=== PATIENT | male | born 1970 | race Caucasian/White ===

== ENCOUNTER → 2016-09-25 | Outpatient (CLI) | payer OTHER ==
[~2016-09-25] MED LIST: ALBU17IN INH; NAPR250T2 PO; PRED20TA PO; TRAM50TA2 PO; TRAZ50TA OR; TYLE325T5 PO; ZITHTAB PO; ZOLO100T OR
--- NOTE | 2016-09-28 23:52 | ECWPNPC ---
PATIENT NAME: TORY SALDIVAR : 1970 GENDER: MALE VISIT DATE: 09/25/2016 DISCHARGE DATE: 09/25/16 1426 VISIT LOCKED DATE TIME: PHYSICIAN: FIFI KEBEDE RESOURCE: FIFI KEBEDE REASON FOR APPOINTMENT 1. NECK HISTORY OF PRESENT ILLNESS NEW PATIENT CONSULT: 45 Y/O MALE REFERRED BY [facility]UP[facility] FOR EVALUATION OF LEFT NECK AND ARM PAIN.THIS BEGAN WITHOUT PRECIPITATING EVENT 2 YEARS AGO. INITIALLY THE PAIN WAS LOCATED LEFT NECK AND UPPER BACK.PAIN BEGAN IN LEFT ARM APROXIMATLEY 6 MOS AGO.PAIN IS WORSE AFTER PROLONGED SITTING.PAIN RELIEVED SOMEWHAT WITH HEAT OR MASSAGE.REPORTS POOR SLEEP DUE TO PAIN.HAS BEEN TO ER SEVERAL TIMES DUE TO THIS PAIN.DENIES RECENT FEVER ILLNESS OR WEIGHT LOSS.DENIES BOWEL OR BLADDER INCONTINENCE. WHEN DID YOUR PAIN FIRST START? . BRIEFLY DESCRIBE HOW YOUR PAIN STARTED? . HOW DOES YOUR PAIN CHANGE WITH TIME? . DOES YOUR PAIN AWAKEN YOU FROM SLEEP? . HOW MANY HOURS OF SLEEP DO YOU NORMALLY GET? . ANY DIAGNOSTIC TESTING? . FACILITY WHERE TESTS WERE DONE? ____. PAIN TREATMENT TREATMENT YES CANCER HAVE YOU EVER HAD ANY TYPE OF CANCER?NO NO. PAIN SCREENING: PATIENT HAS A COMPLAINT OF ACUTE OR CHRONIC PAIN YES FALL RISK SCREENING: SCREENING :NO FALLS IN THE PAST YEAR SILVA INVENTORY: QUESTIONNAIRE ASSESSEDYES SCORE VALUE CALCULATED YES SCORE:4 CURRENT MEDICATIONS TAKING BENZONATATE 200 MG TABLET 1 TAB(S) ORALLY THREE TIMES A DAY TAKING ALBUTEROL SULFATE HFA 108 (90 BASE) MCG/ACT AEROSOL SOLUTION 2 PUFFS NEEDED INHALATION EVERY 4 HRS TAKING PROAIR HFA 108 (90 BASE) MCG/ACT AEROSOL SOLUTION 2 PUFFS NEEDED INHALATION QID PRN NOT-TAKING CETIRIZINE HCL 10 MG TABLET 1 TABLET ORALLY ONCE A DAY NOT-TAKING NAPROXEN 500 MG 1 1 TAB(S) P.O. ONCE A DAY NOT-TAKING NICOTINE STEP 1 21 MG/24HR PATCH 24 HOUR 1 PATCH TO SKIN TRANSDERMAL ONCE A DAY NOT-TAKING NICORETTE STARTER KIT 2 MG GUM 1 PIECE NEEDED MOUTH/THROAT 12 TIME(S) A DAY NOT-TAKING MOBIC 7.5 MG TABLET 1 TABLET ORALLY ONCE A DAY NOT-TAKING OMEPRAZOLE 20MG 20MG TABLET 1 TAB(S) ORALLY DAILY MEDICATION LIST REVIEWED AND RECONCILED WITH THE PATIENT PAST MEDICAL HISTORY ALCOHOL ABUSE DEPRESSION MIGRAINES CHRONIC SEROUS OTTITIS MEDIAL NON TRAUMATIC INTERCEREBRAL HEMORRHAGE ANXIETY DISORDER ALLERGIES PENICILLIN (FOR ALLERGIES USE ONLY): HIVES: ALLERGY SURGICAL HISTORY NO SURGICAL HISTORY DOCUMENTED. FAMILY HISTORY FATHER: 56 YRS MOTHER: 44 YRS SIBLINGS: MOM STROKE, FATHER HEART ATTACK BROTHER COMMITTED SUICIDE 2 SISTERS ALIVE. 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 DIET: REGULAR. EXERCISE: WALKS. MARITAL STATUS: SINGLE. OTHERS AT HOME: GIRLFRIEND AND DOG. PETS: DOG. YAZDANISM: NO PREFERENCE. LANGUAGE: KENYAN. EDUCATION: 10TH GRADE. PSYCHOLOGICAL HX TREATMENTNO PAIN CLINIC PFS, CLERGY, PUBLIC HEALTH REFERRALS CLERGY REFERRAL NEEDED?NO WAS THE PROVIDER NOTIFIED OF ANY PERTINENT INFO?NO PFS REFERRAL NEEDED?NO PUBLIC HEALTH REFERRAL NEEDED?NO PATIENT: ____. ADVANCED DIRECTIVES HEALTH CARE PROXY?NO POWER OF CHIEF PROGRAM OFFICER?NO HOSPITALIZATION/MAJOR DIAGNOSTIC PROCEDURE NO HOSPITALIZATION HISTORY. REVIEW OF SYSTEMS CONSTITUTIONAL: ANY CHANGE IN YOUR MEDICAL CONDITION? NO . RECENT ILLNESS DENIES . CHILLS NO . FEVER NO . WEIGHT LOSS DENIES . INFECTION: DO YOU HAVE NEW INFECTIONS? NO . DO YOU HAVE HISTORY OF MRSA? NO . MUSCULOSKELETAL: ANY NEW PATTERNS OF PAIN OR NUMBNESS? YES INCREASING IN THE NECK AND LEFT SHOULDER . SYTEMIC LUPUS NO . GASTROENTEROLOGY: ANY NEW CHANGE IN BOWEL CONTROL? NO . BARRETTS ESOPHAGUS NO . CIRRHOSIS NO . HEPATITIS NO . LIVER FAILURE NO . ACID REFLUX NO . UNEXPLAINED WEIGHT LOSS NO . GENITOURINARY: ANY NEW CHANGE IN BLADDER CONTROL? NO . IS THERE A CHANCE YOU COULD BE ? NO . HEMATOLOGY/LYMPH: DO YOU TAKE ANY BLOOD THINNERS? (FOR EXAMPLE- COUMADIN, PLAVIX, AGGRENOX, PLATEL, PRADAXA, OR XARELTO) NO . WHEN WAS YOUR LAST DOSE? DATE: TIME: . LOW PLATELET COUNT NO . SICKLE CELL DISEASE NO . VON WILLIEBRANDS NO . FACTOR V LEIDEN NO . THALLASEMIA NO . ANEMIA NO . EASY BRUISING NO . NEUROLOGY: HAVE YOU FALLEN IN THE PAST 6 MONTHS? NO . ANY NEW EXTREMITY NUMBNESS OR WEAKNESS? NO . HEAD INJURY NO . DEMENTIA NO . CEREBRAL PALSY NO . MULTIPLE SCLEROSIS NO . DIZZINESS NO . HEADACHE NO . STROKES NO . VERTIGO NO . CARDIOLOGY: DO YOU HAVE A PACEMAKER OR DEFIBRILLATOR? NO . ANGINA NO . HEART ATTACK NO . HEART SURGERY NO . CONGESTIVE HEART FAILURE/FLUID OVERLOAD NO . CHEST PAIN NO, DENIES . HIGH BLOOD PRESSURE NO . IRREGULAR HEART BEAT NO . SHORTNESS OF BREATH DENIES . RESPIRATORY: HAVE YOU BEEN SICK IN THE PAST WEEK? NO . FEVER NO . FLU LIKE SYMPTOMS? NO . CPAP NO . BYPAP NO . ASTHMA NO . EMPHYSEMA NO . CHRONIC LUNG DISEASES NO . SHORTNESS OF BREATH ON EXERTION NO . DO YOU USE ANY TYPE OF TOBACCO (SMOKE, SMOKELESS, CHEW)? NO . COUGH NO, DENIES . SHORTNESS OF BREATH DENIES . SNORING NO . INTEGUMENTARY: DO YOU HAVE ANY RASHES OR OPEN SORES? NO . ALLERGIC/IMMUNO: ARE YOU ALLERGIC TO SHELLFISH OR IV DYE? NO . ANY NEW ALLERGIES? NO . PSYCHIATRIC: DO YOU HAVE THOUGHTS OF HURTING YOURSELF OR SOMEONE ELSE? NO . ARE YOU ABUSED, NEGLECTED, OR IN AN UNSAFE ENVIRONMENT? NO . ENDOCRINOLOGY: ARE YOU DIABETIC? NO . THYROID DISORDER NO . OTHER: DO YOU NEED ANY PRESCRIPTIONS? NO . IF YES, PLEASE LIST: ____ . ANY NEW PROBLEMS WITH YOUR MEDICATIONS? NO . WHEN DID YOU LAST EAT? ____ . WHEN DID YOU LAST DRINK? ____ . WHAT DID YOU LAST DRINK? ____ . NAME OF PERSON DRIVING YOU HOME? ____ . DO YOU HAVE ANY OTHER QUESTIONS OR CONCERNS NO . REVIEWED BY: PROVIDER: FIFI DEL CASTILLO . VITAL SIGNS WT 126.4 LBS, HT 67 IN, BMI 19.79 INDEX, BP 136/79 MM HG, HR 80 /MIN, RR 18 /MIN, TEMP 97.7 F, OXYGEN SAT % 99%, NA INITIALS SC 13:19, REVIEWED BY: ASHA. EXAMINATION GENERAL EXAMINATION: LUNGS:LUNG SOUNDS ARE CLEAR. HEART:HEART RATE REGULAR. MUSCULOSKELETAL:*, MUSCLE STRENGTH TESTING 5/5 BILATERAL UPPER EXTREMITIES., PALPATION: POSITIVE FOR PAIN OVER C SPINE. POSITIVE FOR PAIN OVER CERVICAL PARASPINALS L>R.TRIGGER POINTS ELICITED LEFT UPPER BACK.SCOLIOSIS NOTED.. DIAGNOSTIC:04-24-16-MRI CERVICAL SPINE-REVIEWED. ASSESSMENTS MYALGIA - M79.1 (PRIMARY) CERVICALGIA - M54.2 TREATMENT MYALGIA START TRAMADOL HCL TABLET, 50 MG, 1-2, ORALLY, EVERY 6 HRS PRN MDD4, 30 DAY(S), 60, REFILLS 1 START GABAPENTIN CAPSULE, 100 MG, 2, ORALLY, BEFORE BEDTIME, 30 DAY(S), 60, REFILLS 1 TRIGGER POINT 1-2 AREAS REFERRAL TO:PHYSICAL THERAPIST REASON:2XWK X6WK MYOFASCIAL RELEASE LEFT UPPER BACK PROCEDURE CODES FA211 ESTABILISHED PATIENT [facility] CHARGE DISPOSITION & COMMUNICATION FOLLOW UP 2WK POST PROC. (REASON: TPI LEFT UPPER BACK) ELECTRONICALLY SIGNED BY ABUNDIO SHARPE ON 09/28/2016 AT 02:14 PM EST DISCLAIMER : THIS IS A VISIT SUMMARY EXTRACTED FROM THE [employer] CHART. IT IS NOT A COPY OF THE [employer] PROGRESS NOTE. ELSA
== END ==
LOC: M PAIN 13:20
PROVIDERS: ATTEND Nurse Practitioner Family
DX: G89.29 Other chronic pain (principal); M79.1 Myalgia; M54.2 Cervicalgia; G43.909 Migraine, unspecified, not intractable, without status migrainosus; H65.20 Chronic serous otitis media, unspecified ear; F32.9 Major depressive disorder, single episode, unspecified; F41.9 Anxiety disorder, unspecified; F17.200 Nicotine dependence, unspecified, uncomplicated; Z88.0 Allergy status to penicillin; Z79.899 Other long term (current) drug therapy; Z86.59 Personal history of other mental and behavioral disorders; Z86.79 Personal history of other diseases of the circulatory system

== ENCOUNTER → 2016-10-23 | Outpatient (RCR) | payer OTHER | LOC: M PT 10-15 13:05 | PROVIDERS: ATTEND Nurse Practitioner Adult Health | DX: Z51.89 Encounter for other specified aftercare (principal); M54.2 Cervicalgia ==

== ENCOUNTER → 2016-10-28 | Outpatient (CLI) | payer OTHER ==
[~2016-10-28] MED LIST changes: +BUPIVACAINE HCL 0.25% 10 ML VIAL As Ordered ONE; +BUPIVACAINE HCL 0.25% 30 ML VIAL As Ordered ONE; +TRIAMCINOLONE ACETONIDE SUSP 40 MG/ML VIAL (J3301) As Ordered ONE; +diazePAM 5 MG TAB As Ordered ONE
--- NOTE | 2016-11-01 23:54 | ECWPNPC ---
PATIENT NAME: TORY SALDIVAR : 1970 GENDER: MALE VISIT DATE: 10/28/2016 DISCHARGE DATE: 10/28/16 1600 VISIT LOCKED DATE TIME: PHYSICIAN: SVETLANA MATTHEWS RESOURCE: SVETLANA MATTHEWS REASON FOR APPOINTMENT 1. LEFT UPPER BACK TPI HISTORY OF PRESENT ILLNESS HISTORY OF PRESENT ILLNESS: PAIN THE PATIENT DESCRIBES THE PAIN... FALL RISK SCREENING: SCREENING :NO FALLS IN THE PAST YEAR CURRENT MEDICATIONS TAKING BENZONATATE 200 MG TABLET 1 TAB(S) ORALLY THREE TIMES A DAY, NOTES: 10/26/16 0800 TAKING ALBUTEROL SULFATE HFA 108 (90 BASE) MCG/ACT AEROSOL SOLUTION 2 PUFFS NEEDED INHALATION EVERY 4 HRS, NOTES: > 1 WEEK TAKING PROAIR HFA 108 (90 BASE) MCG/ACT AEROSOL SOLUTION 2 PUFFS NEEDED INHALATION QID PRN, NOTES: > 1 WEEK TAKING TRAMADOL HCL 50 MG TABLET 1-2 ORALLY EVERY 6 HRS PRN MDD4, NOTES: 10/27/16 2100 TAKING GABAPENTIN 100 MG CAPSULE 2 ORALLY BEFORE BEDTIME, NOTES: 10/27/162099 NOT-TAKING CETIRIZINE HCL 10 MG TABLET 1 TABLET ORALLY ONCE A DAY NOT-TAKING NAPROXEN 500 MG 1 1 TAB(S) P.O. ONCE A DAY NOT-TAKING NICOTINE STEP 1 21 MG/24HR PATCH 24 HOUR 1 PATCH TO SKIN TRANSDERMAL ONCE A DAY NOT-TAKING NICORETTE STARTER KIT 2 MG GUM 1 PIECE NEEDED MOUTH/THROAT 12 TIME(S) A DAY NOT-TAKING MOBIC 7.5 MG TABLET 1 TABLET ORALLY ONCE A DAY NOT-TAKING OMEPRAZOLE 20MG 20MG TABLET 1 TAB(S) ORALLY DAILY MEDICATION LIST REVIEWED AND RECONCILED WITH THE PATIENT PAST MEDICAL HISTORY ALCOHOL ABUSE DEPRESSION MIGRAINES CHRONIC SEROUS OTTITIS MEDIAL NON TRAUMATIC INTERCEREBRAL HEMORRHAGE ANXIETY DISORDER ALLERGIES PENICILLIN (FOR ALLERGIES USE ONLY): HIVES: ALLERGY CHOCOLATE: HIVES: ALLERGY SOCIAL HISTORY GENERAL: PAIN CLINIC PFS, CLERGY, PUBLIC HEALTH REFERRALS CLERGY REFERRAL NEEDED?NO WAS THE PROVIDER NOTIFIED OF ANY PERTINENT INFO?NO PFS REFERRAL NEEDED?NO PUBLIC HEALTH REFERRAL NEEDED?NO PATIENT: ____. REVIEW OF SYSTEMS CONSTITUTIONAL: ANY CHANGE IN YOUR MEDICAL CONDITION? NO . CHILLS NO . FEVER NO . INFECTION: DO YOU HAVE NEW INFECTIONS? NO . DO YOU HAVE HISTORY OF MRSA? NO . MUSCULOSKELETAL: ANY NEW PATTERNS OF PAIN OR NUMBNESS? NO . GASTROENTEROLOGY: ANY NEW CHANGE IN BOWEL CONTROL? NO . GENITOURINARY: ANY NEW CHANGE IN BLADDER CONTROL? NO . IS THERE A CHANCE YOU COULD BE ? NO . HEMATOLOGY/LYMPH: DO YOU TAKE ANY BLOOD THINNERS? (FOR EXAMPLE- COUMADIN, PLAVIX, AGGRENOX, PLATEL, PRADAXA, OR XARELTO) NO . WHEN WAS YOUR LAST DOSE? DATE: TIME: . NEUROLOGY: HAVE YOU FALLEN IN THE PAST 6 MONTHS? NO . ANY NEW EXTREMITY NUMBNESS OR WEAKNESS? NO . CARDIOLOGY: DO YOU HAVE A PACEMAKER OR DEFIBRILLATOR? NO . RESPIRATORY: HAVE YOU BEEN SICK IN THE PAST WEEK? NO . FEVER NO . FLU LIKE SYMPTOMS? NO . COUGH NO . INTEGUMENTARY: DO YOU HAVE ANY RASHES OR OPEN SORES? NO . ALLERGIC/IMMUNO: ARE YOU ALLERGIC TO SHELLFISH OR IV DYE? NO . ANY NEW ALLERGIES? NO . PSYCHIATRIC: DO YOU HAVE THOUGHTS OF HURTING YOURSELF OR SOMEONE ELSE? NO . ARE YOU ABUSED, NEGLECTED, OR IN AN UNSAFE ENVIRONMENT? YES . ENDOCRINOLOGY: ARE YOU DIABETIC? NO . OTHER: DO YOU NEED ANY PRESCRIPTIONS? NO . IF YES, PLEASE LIST: ____ . ANY NEW PROBLEMS WITH YOUR MEDICATIONS? YES . WHEN DID YOU LAST EAT? ___10/27/16_ . WHEN DID YOU LAST DRINK? ____DRINKING ON ADMISSION, 10/28 1345 . WHAT DID YOU LAST DRINK? ____COKE . NAME OF PERSON DRIVING YOU HOME? ____[employer] . DO YOU HAVE ANY OTHER QUESTIONS OR CONCERNS NO . REVIEWED BY: PROVIDER: . VITAL SIGNS WT 135.0 LBS, HT 67 IN, BMI 21.14 INDEX, BP 124/75 MM HG, HR 92 /MIN, RR 16 /MIN, TEMP 98.3 F, OXYGEN SAT % 98%, NA INITIALS TL 1354. ASSESSMENTS MYALGIA - M79.1 (PRIMARY) PROCEDURES PN TRIGGER POINT INJECTION WITH STEROIDS PRE PROCEDURE DIAGNOSIS 1. MYALGIA 2. PAIN AT LEFT NECK AREA, LEFT SHOULDER AREA, AND RIGHT THORACIC AREA POST PROCEDURE DIAGNOSIS 1. MYALGIA 2. PAIN AT LEFT NECK AREA, LEFT SHOULDER AREA, AND RIGHT THORACIC AREA PROCEDURE TRIGGER POINT INJECTION AT LEFT NECK AREA, LEFT SHOULDER AREA, AND RIGHT THORACIC AREA SURGEON DR. SVETLANA MATTHEWS CANDY BUTCHER NONE ANESTHESIA LOCAL PRE PROCEDURE NOTE THE PATIENT HAS A HISTORY OF CHRONIC PAIN AT THE LEFT NECK AREA, LEFT SHOULDER AREA, AND RIGHT THORACIC AREA. I EVALUATE THE PATIENT AND REVIEWED THE CHART. THERE IS EVIDENCE OF BANDS OF TISSUE WITH RESTRICTION OF MOVEMENT AND PRESENCE OF TRIGGER POINT AT THE AFFECTED AREA. I WENT OVER THE RISKS, ALTERNATIVES, AND BENEFITS ASSOCIATED WITH THIS PROCEDURE. THE PATIENT WOULD LIKE TO PROCEED AND GIVE CONSENT TO PERFORMED THE PROCEDURE. THE PATIENT DENIES UNEXPLAINABLE WEIGHT LOSS, FEVER, CHILLS, OR NEW CHANGES IN URINARY OR BOWEL CONTROL DESCRIPTION OF PROCEDURE THE PATIENT WAS BROUGHT TO THE PROCEDURE ROOM AND PLACED IN THE SITTING POSITION. THE AREA WAS CLEANED WITH ALCOHOL. THE PROCEDURE WAS DONE USING ASEPTIC STERILE TECHNIQUE. I CHECKED LATERALITY AND THE LEVEL WHERE THE PROCEDURE WAS GOING TO BE PERFORMED WITH THE PATIENT AND THE SUPPORTING STAFF AT THE MOMENT OF THE TIME OUT IN THE PROCEDURE ROOM. USING A 25-GAUGE NEEDLE, TRIGGER POINTS WERE INJECTED AT THE LEFT NECK AREA, LEFT SHOULDER AREA, AND RIGHT THORACIC AREA WITH A TOTAL OF 40 ML OF BUPIVACAINE 0.25% AND KENALOG 40 MG. THERE WAS NO EVIDENCE OF BLOOD, PARESTHESIA OR CEREBROSPINAL FLUID DURING THE PROCEDURE. THE PATIENT WAS SENT TO THE RECOVERY ROOM. THE PATIENT WAS MOVING THE EXTREMITIES AND DOING WELL. THERE WAS NO COMPLICATION DURING THE PROCEDURE POST PROCEDURE NOTE THE PATIENT WILL BE SEEN IN A FOLLOW UP IN THE NEXT FEW WEEKS. INSTRUCTIONS WERE GIVEN, QUESTIONS WERE ANSWERED, AND THE PATIENT EXPRESSED UNDERSTANDING AND AGREES WITH THE PLAN. I, LEONIE HOWARD, DOCUMENTED THE ABOVE INFORMATION ACTING A SCRIBE FOR DR. MATTHEWS. I, DR. MATTHEWS, HAVE REVIEWED THE ABOVE DOCUMENT, SCRIBED BY LEONIE HOWARD, AND I VERIFY THAT IT IS ACCURATE PROCEDURE CODES 61909 INJECT TRIGGER POINTS 3/> DISPOSITION & COMMUNICATION FOLLOW UP 3 WEEKS ELECTRONICALLY SIGNED BY SVETLANA MATTHEWS MD ON 11/01/2016 AT 08:37 PM EDT DISCLAIMER : THIS IS A VISIT SUMMARY EXTRACTED FROM THE [employer] CHART. IT IS NOT A COPY OF THE [employer] PROGRESS NOTE. ELSA
== END ==
LOC: M PAIN 14:00
PROVIDERS: ATTEND Anesthesiology
DX: G89.29 Other chronic pain (principal); M79.1 Myalgia; M54.6 Pain in thoracic spine; M54.2 Cervicalgia; M25.511 Pain in right shoulder; M25.512 Pain in left shoulder; Z79.891 Long term (current) use of opiate analgesic; Z79.899 Other long term (current) drug therapy; Z88.0 Allergy status to penicillin; Z91.018 Allergy to other foods
CPT/HCPCS: 20553; J3301

== ENCOUNTER 2016-11-14 17:39 | Emergency (ER) | payer OTHER ==
[~2016-11-14] VITALS: Ht 170.2 cm; Wt 61.2 kg
[~2016-11-14 17:39] MED LIST changes: -BUPIVACAINE HCL 0.25% 10 ML VIAL As Ordered ONE; -BUPIVACAINE HCL 0.25% 30 ML VIAL As Ordered ONE; -TRIAMCINOLONE ACETONIDE SUSP 40 MG/ML VIAL (J3301) As Ordered ONE; -diazePAM 5 MG TAB As Ordered ONE
[2016-11-14] MEDS ORDERED: EXCETAB81 PO (17:49)
[2016-11-14] MEDS ORDERED: diphenhydrAMINE INJ 50MG/ML VIAL (J1200) IV ONE (18:45)
[2016-11-14] MEDS ORDERED: METOCLOPRAMIDE INJ 10MG/2ML VIAL (J2765) IV ONE (18:45)
[2016-11-14] MEDS ORDERED: NS 1,000 ML IV ONE (18:45)
[2016-11-14] MEDS ORDERED: KETOROLAC 30 MG/ML VIAL (J1885) IV ONE (18:45)
[2016-11-14 18:48] LABS: BASO % 0.5 % (0.0-1.0); EOS # 0.1 K/mm3 (0.0-0.50); EOS % 1.2 % (0.0-3.0); LARGE UNSTAINED CELL # 0.3 K/mm3 (0.0-0.4); LARGE UNSTAINED CELL % 2.7 % (0.0-4.0); LYMPH # 4.7 K/mm3 (1.5-4.5); LYMPH % 43.1 % (24.0-44.0); MEAN CORPUSCULAR HEMOGLOBIN 30.6 pg (27.0-33.0); MEAN CORPUSCULAR HGB CONC 33.6 g/dl (32.0-36.5); MEAN CORPUSCULAR VOLUME 91.1 fl (80.0-96.0); MONO # 0.5 K/mm3 (0.0-0.8); NEUTROPHILS # 4.9 K/mm3 (1.8-7.7); NEUTROPHILS % 47.5 % (36.0-66.0); PLATELET COUNT, AUTOMATED 313 k/mm3 (150-450); RED CELL DISTRIBUTION WIDTH 13.2 % (11.5-14.5); WHITE BLOOD COUNT 10.4 K/mm3 (4.0-10.0)
[2016-11-14 18:50] LABS: INR 0.97
[2016-11-14 19:00] LABS: ALBUMIN 3.7 GM/DL (3.2-5.2); ALBUMIN/GLOBULIN RATIO 1.19 (1.00-1.93); ALKALINE PHOSPHATASE 72 U/L (45-117); ALT/SGPT 15 U/L (12-78); ANION GAP 6 MEQ/L (8-16); AST/SGOT 7 U/L (15-37); BILIRUBIN,DIRECT < 0.1 MG/DL (0.0-0.2); BILIRUBIN,TOTAL 0.3 MG/DL (0.2-1.0); BLOOD UREA NITROGEN 12 MG/DL (7-18); CALCIUM LEVEL 8.7 MG/DL (8.5-10.1); CARBON DIOXIDE LEVEL 30 MEQ/L (21-32); CHLORIDE LEVEL 105 MEQ/L (98-107); CREATININE FOR GFR 0.96 MG/DL (0.70-1.30); GLOMERULAR FILTRATION RATE > 60.0 (>60); GLUCOSE, FASTING 92 MG/DL (70-105); POTASSIUM SERUM 3.2 MEQ/L (3.5-5.1); SODIUM LEVEL 141 MEQ/L (136-145); TOTAL PROTEIN 6.8 GM/DL (6.4-8.2)
--- NOTE | 2016-11-14 19:00 | REPUSA ---
CT of the head Clinical history: Altered mental status. Comparison: 06/05/2016. Technique: Multiple axial CT images were obtained through the head without administration of contrast . Findings: The ventricles and sulci are symmetric bilaterally. There is no evidence of acute hemorrhag e or infarct. There is no midline shift, mass effect, or extra-axial fluid collection. The osseous st ructures are unremarkable. The visualized paranasal sinuses and mastoid air cells are clear. Impression: Negative study.
[2016-11-14 19:58] VITALS: BP 118/82
[2016-11-14 20:01] LABS: METHADONE URINE NEGATIVE (NEGATIVE)
--- NOTE | 2016-11-15 07:24 | ECGEPIP ---
Stationary ECG Study [facility] - ED Test Date: 2016-11-14 Pat Name: TORY SALDIVAR Department: Room: - Gender: M Mussel Opener: : 1970 Requested By: Leatha Cohn Order Number: [id number] Reading MD: Leatha Cohn Measurements Intervals Mobile Rate: 78 P: 77 AK: 144 QRS: 81 QRSD: 98 T: 78 QT: 348 QTc: 398 Interpretive Statements SINUS RHYTHM WITH SINUS ARRHYTHMIA SIMILAR 06/12/16 Electronically Signed On 11-15-2016 7:23:53 EDT by Leatha Cohn
--- NOTE | 2016-11-15 08:33 | REP ---
PA and lateral chest: Comparison is 06/12/2016. The lung elizondo are clear. The cardiac size is normal The shakila, mediastinum, and bony thorax are unremarkable. Impression: Negative PA and lateral chest. There is mild scoliosis of the thoracic spine convex left, unchanged. Signed by Xavier Martin MD 11/15/2016 08:25 A
== END 2016-11-14 20:06 | disposition home or self-care (01) ==
LOC: M ED 18:32
DX: R51 Headache (principal); E87.6 Hypokalemia; J01.90 Acute sinusitis, unspecified
CPT/HCPCS: 70450; 71020; 80048; 80076; 80306; 81001; 82550; 82553; 84443; 85025; 85610; 93005; 93041; 94760; 96374; 96375; 99285; G0480; J1200; J1885; J2765

== ENCOUNTER 2016-11-17 12:37 | Outpatient (RCR) | payer OTHER ==
[~2016-11-17 12:37] MED LIST changes: +EXCETAB81 PO
== END 2016-11-22 | disposition home or self-care (01) ==
LOC: M PT 12:37
PROVIDERS: ATTEND Nurse Practitioner Adult Health
DX: Z51.89 Encounter for other specified aftercare (principal); M47.812 Spondylosis without myelopathy or radiculopathy, cervical region; Z72.0 Tobacco use; H65.23 Chronic serous otitis media, bilateral

== ENCOUNTER → 2016-11-27 | Outpatient (CLI) | payer OTHER ==
--- NOTE | 2016-12-16 01:56 | ECWPNPC ---
PATIENT NAME: TORY SALDIVAR : 1970 GENDER: MALE VISIT DATE: 11/27/2016 DISCHARGE DATE: 11/27/16 1102 VISIT LOCKED DATE TIME: PHYSICIAN: FIFI KEBEDE RESOURCE: FIFI KEBEDE REASON FOR APPOINTMENT 1. MEDS HISTORY OF PRESENT ILLNESS HISTORY OF PRESENT ILLNESS: HERE FOR F/U OF PERSISTENT LEFT NECK PAIN.RATING P[AIN VAS 7/10.HAD TPI 4-5-17.REPORTS >50% IMPROVEMENT IN PAIN FOR ONE WEEK POST PROCEDURE THEN PAIN RETURNED TO BASELINE.ATTENDING PT WHICH PATIENT FEELS IS HELPFUL.STAES THAT GABAPENTIN 100MG TWO TAB. AT NIGHT IS HELPFUL AND REPORTS IMPROVED SLEEP. PAIN THE PATIENT DESCRIBES THE PAIN... FALL RISK SCREENING: SCREENING :NO FALLS IN THE PAST YEAR CURRENT MEDICATIONS TAKING BENZONATATE 200 MG TABLET 1 TAB(S) ORALLY THREE TIMES A DAY TAKING ALBUTEROL SULFATE HFA 108 (90 BASE) MCG/ACT AEROSOL SOLUTION 2 PUFFS NEEDED INHALATION EVERY 4 HRS TAKING PROAIR HFA 108 (90 BASE) MCG/ACT AEROSOL SOLUTION 2 PUFFS NEEDED INHALATION QID PRN TAKING TRAMADOL HCL 50 MG TABLET 1-2 ORALLY EVERY 6 HRS PRN MDD4 TAKING GABAPENTIN 100 MG CAPSULE 2 ORALLY BEFORE BEDTIME NOT-TAKING CETIRIZINE HCL 10 MG TABLET 1 TABLET ORALLY ONCE A DAY NOT-TAKING NAPROXEN 500 MG 1 1 TAB(S) P.O. ONCE A DAY NOT-TAKING NICOTINE STEP 1 21 MG/24HR PATCH 24 HOUR 1 PATCH TO SKIN TRANSDERMAL ONCE A DAY NOT-TAKING NICORETTE STARTER KIT 2 MG GUM 1 PIECE NEEDED MOUTH/THROAT 12 TIME(S) A DAY NOT-TAKING MOBIC 7.5 MG TABLET 1 TABLET ORALLY ONCE A DAY NOT-TAKING OMEPRAZOLE 20MG 20MG TABLET 1 TAB(S) ORALLY DAILY MEDICATION LIST REVIEWED AND RECONCILED WITH THE PATIENT PAST MEDICAL HISTORY ALCOHOL ABUSE DEPRESSION MIGRAINES CHRONIC SEROUS OTTITIS MEDIAL NON TRAUMATIC INTERCEREBRAL HEMORRHAGE ANXIETY DISORDER ALLERGIES PENICILLIN (FOR ALLERGIES USE ONLY): HIVES: ALLERGY CHOCOLATE: HIVES: ALLERGY REVIEW OF SYSTEMS CONSTITUTIONAL: ANY CHANGE IN YOUR MEDICAL CONDITION? NO . CHILLS NO . FEVER NO . INFECTION: DO YOU HAVE NEW INFECTIONS? NO . DO YOU HAVE HISTORY OF MRSA? NO . MUSCULOSKELETAL: ANY NEW PATTERNS OF PAIN OR NUMBNESS? NO . GASTROENTEROLOGY: ANY NEW CHANGE IN BOWEL CONTROL? NO . GENITOURINARY: ANY NEW CHANGE IN BLADDER CONTROL? NO . IS THERE A CHANCE YOU COULD BE ? NO . HEMATOLOGY/LYMPH: DO YOU TAKE ANY BLOOD THINNERS? (FOR EXAMPLE- COUMADIN, PLAVIX, AGGRENOX, PLATEL, PRADAXA, OR XARELTO) NO . WHEN WAS YOUR LAST DOSE? DATE: TIME: . NEUROLOGY: HAVE YOU FALLEN IN THE PAST 6 MONTHS? NO . ANY NEW EXTREMITY NUMBNESS OR WEAKNESS? NO . CARDIOLOGY: DO YOU HAVE A PACEMAKER OR DEFIBRILLATOR? NO . RESPIRATORY: HAVE YOU BEEN SICK IN THE PAST WEEK? NO . FEVER NO . FLU LIKE SYMPTOMS? NO . COUGH NO . INTEGUMENTARY: DO YOU HAVE ANY RASHES OR OPEN SORES? NO . ALLERGIC/IMMUNO: ARE YOU ALLERGIC TO SHELLFISH OR IV DYE? NO . ANY NEW ALLERGIES? NO . PSYCHIATRIC: DO YOU HAVE THOUGHTS OF HURTING YOURSELF OR SOMEONE ELSE? NO . ARE YOU ABUSED, NEGLECTED, OR IN AN UNSAFE ENVIRONMENT? NO . ENDOCRINOLOGY: ARE YOU DIABETIC? NO . OTHER: DO YOU NEED ANY PRESCRIPTIONS? YES . IF YES, PLEASE LIST: NEEDS PAIN MEDS // TRAMADOL NOT WORKING . ANY NEW PROBLEMS WITH YOUR MEDICATIONS? NO . WHEN DID YOU LAST EAT? ____ . WHEN DID YOU LAST DRINK? ____ . WHAT DID YOU LAST DRINK? ____ . NAME OF PERSON DRIVING YOU HOME? ____ . DO YOU HAVE ANY OTHER QUESTIONS OR CONCERNS NO . REVIEWED BY: PROVIDER: FIFI DEL CASTILLO . VITAL SIGNS WT 123.8 LBS, HT 67 IN, BMI 19.39 INDEX, BP 121/77 MM HG, HR 88 /MIN, RR 16 /MIN, TEMP 98.0 F, OXYGEN SAT % 97%, NA INITIALS AW 1027, REVIEWED BY: NL. EXAMINATION GENERAL EXAMINATION: LUNGS:LUNG SOUNDS ARE CLEAR. HEART:HEART RATE REGULAR. MUSCULOSKELETAL:*, MUSCLE STRENGTH TESTING 5/5 BILATERAL UPPER EXTREMITIES., PALPATION: POSITIVE FOR PAIN OVER C SPINE. POSITIVE FOR PAIN OVER CERVICAL PARASPINALS L>R.TRIGGER POINTS ELICITED LEFT UPPER BACK.SCOLIOSIS NOTED.. DIAGNOSTIC:04-24-16-MRI CERVICAL SPINE-REVIEWED. ASSESSMENTS MYALGIA - M79.1 (PRIMARY) CERVICALGIA - M54.2 TREATMENT MYALGIA INCREASE GABAPENTIN CAPSULE, 100 MG, 1-2 DIRECTED, ORALLY, 1 IN AM AND 2 AT HS, 30 DAY(S), 90, REFILLS 1 REFILL TRAMADOL HCL TABLET, 50 MG, 1-2, ORALLY, EVERY 6 HRS PRN MDD4, 30 DAY(S), 30, REFILLS 1 TRIGGER POINT 1-2 IFFI MERINO 11/27/2016 10:51:04 AM > LEFT NECK NOTES: CONTINUE PT,TRIGGER POINT INJECTION MATERIAL WAS PRINTED. PREVENTIVE MEDICINE REVIEWED TPI AND GAVE WRITTEN INFO. DISCUSSED PREPROCEDURE CARE AND GAVE WRITTEN INFO. PROCEDURE CODES FA211 ESTABILISHED PATIENT [facility] CHARGE DISPOSITION & COMMUNICATION FOLLOW UP 6 WEEKS (REASON: TPI LEFT NECK) ELECTRONICALLY SIGNED BY ABUNDIO SHARPE ON 12/15/2016 AT 04:41 PM EDT DISCLAIMER : THIS IS A VISIT SUMMARY EXTRACTED FROM THE [employer] CHART. IT IS NOT A COPY OF THE [employer] PROGRESS NOTE. ELSA
== END ==
LOC: M PAIN 10:20
PROVIDERS: ATTEND Nurse Practitioner Family
DX: M79.1 Myalgia (principal); M54.2 Cervicalgia; Z79.891 Long term (current) use of opiate analgesic; Z79.899 Other long term (current) drug therapy; Z88.0 Allergy status to penicillin; Z91.018 Allergy to other foods

== ENCOUNTER 2016-12-22 07:56 | Outpatient (RCR) | payer OTHER | END 2016-12-23 | LOC: M PT 07:56 | PROVIDERS: ATTEND Nurse Practitioner Adult Health | DX: Z51.89 Encounter for other specified aftercare (principal); M54.2 Cervicalgia ==

== ENCOUNTER → 2017-01-15 | Outpatient (CLI) | payer OTHER ==
[2017-01-15 10:57] LABS: BASO # 0.1 K/mm3 (0.0-0.2); BASO % 0.9 % (0.0-1.0); EOS # 0.3 K/mm3 (0.0-0.50); EOS % 3.4 % (0.0-3.0); LYMPH % 46.6 % (24.0-44.0); MEAN CORPUSCULAR HEMOGLOBIN 31.8 pg (27.0-33.0); MEAN CORPUSCULAR HGB CONC 34.6 g/dl (32.0-36.5); MEAN CORPUSCULAR VOLUME 91.8 fl (80.0-96.0); MONO # 0.5 K/mm3 (0.0-0.8); MONO % 6.7 % (0.0-5.0); NEUTROPHILS # 3.1 K/mm3 (1.8-7.7); RED CELL DISTRIBUTION WIDTH 13.6 % (11.5-14.5); WHITE BLOOD COUNT 7.9 K/mm3 (4.0-10.0)
[2017-01-15 11:25] LABS: ALBUMIN 3.7 GM/DL (3.2-5.2); ALBUMIN/GLOBULIN RATIO 1.23 (1.00-1.93); ALKALINE PHOSPHATASE 66 U/L (45-117); ALT/SGPT 12 U/L (12-78); ANION GAP 7 MEQ/L (8-16); AST/SGOT 10 U/L (15-37); BILIRUBIN,TOTAL 0.6 MG/DL (0.2-1.0); BLOOD UREA NITROGEN 11 MG/DL (7-18); CALCIUM LEVEL 9.1 MG/DL (8.5-10.1); CARBON DIOXIDE LEVEL 29 MEQ/L (21-32); CHLORIDE LEVEL 105 MEQ/L (98-107); CHOLESTEROL LEVEL 179 MG/DL (<200); CREATININE FOR GFR 0.81 MG/DL (0.70-1.30); FREE T4 1.21 NG/DL (0.76-1.46); GLOMERULAR FILTRATION RATE > 60.0 (>60); GLUCOSE, FASTING 100 MG/DL (70-105); POTASSIUM SERUM 3.8 MEQ/L (3.5-5.1); SODIUM LEVEL 141 MEQ/L (136-145); TOTAL PROTEIN 6.7 GM/DL (6.4-8.2); TRIGLYCERIDES LEVEL 77 MG/DL (<150)
== END ==
LOC: M LAB 10:29
PROVIDERS: ATTEND Nurse Practitioner Adult Health
DX: E78.5 Hyperlipidemia, unspecified (principal)

== ENCOUNTER → 2017-01-22 | Outpatient (RCR) | payer OTHER ==
[~2017-01-22] MED LIST changes: +CLAR1TAB13 PO; +DIPH25CA PO; +GABA-283 PO; +IBUP80TA PO; -NAPR250T2 PO; +NAPR250T4 PO
== END ==
LOC: M PT 12-29 10:06
PROVIDERS: ATTEND Nurse Practitioner Adult Health
DX: Z51.89 Encounter for other specified aftercare (principal); M54.2 Cervicalgia

== ENCOUNTER → 2017-01-29 | Outpatient (CLI) | payer OTHER ==
--- NOTE | 2017-02-10 03:23 | ECWPNPC ---
PATIENT NAME: TORY SALDIVAR : 1970 GENDER: MALE VISIT DATE: 01/29/2017 DISCHARGE DATE: 01/29/17 1245 VISIT LOCKED DATE TIME: PHYSICIAN: FIFI KEBEDE RESOURCE: FIFI KEBEDE HISTORY OF PRESENT ILLNESS HISTORY OF PRESENT ILLNESS: HERE FOR F/U AND MANAGEMENT OF CHRONIC LOW BACK PAIN AND NECK PAIN.WAS SCHEDULED FOR TPI BUT NO SHOWED X3.USING TRAMADOL AND GABAPENTIN.MEDICATION NOT HELPING ANYMORE.RATING PAIN VAS 9/10. PAIN THE PATIENT DESCRIBES THE PAIN... FALL RISK SCREENING: SCREENING :NO FALLS IN THE PAST YEAR CURRENT MEDICATIONS TAKING ALBUTEROL SULFATE HFA 108 (90 BASE) MCG/ACT AEROSOL SOLUTION 2 PUFFS NEEDED INHALATION EVERY 4 HRS TAKING PROAIR HFA 108 (90 BASE) MCG/ACT AEROSOL SOLUTION 2 PUFFS NEEDED INHALATION QID PRN TAKING GABAPENTIN 100 MG CAPSULE 1-2 DIRECTED ORALLY 1 IN AM AND 2 AT HS TAKING TRAMADOL HCL 50 MG TABLET 1-2 ORALLY EVERY 6 HRS PRN MDD4 NOT-TAKING BENZONATATE 200 MG TABLET 1 TAB(S) ORALLY THREE TIMES A DAY NOT-TAKING CETIRIZINE HCL 10 MG TABLET 1 TABLET ORALLY ONCE A DAY NOT-TAKING NAPROXEN 500 MG 1 1 TAB(S) P.O. ONCE A DAY NOT-TAKING NICOTINE STEP 1 21 MG/24HR PATCH 24 HOUR 1 PATCH TO SKIN TRANSDERMAL ONCE A DAY NOT-TAKING NICORETTE STARTER KIT 2 MG GUM 1 PIECE NEEDED MOUTH/THROAT 12 TIME(S) A DAY NOT-TAKING MOBIC 7.5 MG TABLET 1 TABLET ORALLY ONCE A DAY NOT-TAKING OMEPRAZOLE 20MG 20MG TABLET 1 TAB(S) ORALLY DAILY MEDICATION LIST REVIEWED AND RECONCILED WITH THE PATIENT PAST MEDICAL HISTORY ALCOHOL ABUSE DEPRESSION MIGRAINES CHRONIC SEROUS OTTITIS MEDIAL NON TRAUMATIC INTERCEREBRAL HEMORRHAGE ANXIETY DISORDER ALLERGIES PENICILLIN (FOR ALLERGIES USE ONLY): HIVES: ALLERGY CHOCOLATE: HIVES: ALLERGY SOCIAL HISTORY GENERAL: TOBACCO USE ARE YOU A:CURRENT SMOKER HOW MANY CIGARETTES A DAY DO YOU SMOKE?6-10 HOW SOON AFTER YOU WAKE UP DO YOU SMOKE YOUR FIRST CIGARETTE?6-30 MIN HOW OFTEN DO YOU SMOKE CIGARETTES?EVERY DAY PATIENT COUNSELED ON THE DANGERS OF TOBACCO USE AND URGED TO QUIT:09/25/2016 ARE YOU INTERESTED IN QUITTING?NOT READY TO QUIT COUNSELED THE PATIENT ON SMOKING EFFECTS, EDUCATION [id number]/09/2016 SMOKING CESSATION INFORMATION GIVEN01/29/2017 ALCOHOL SCREENING DID YOU HAVE A DRINK CONTAINING ALCOHOL IN THE PAST YEAR?NO POINTS0 INTERPRETATIONNEGATIVE RECREATIONAL DRUG USE DRUG USE? NO. CAFFEINE CAFFEINE USE? NO . 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 DIET: REGULAR. EXERCISE: WALKS. MARITAL STATUS: SINGLE. OTHERS AT HOME: GIRLFRIEND AND DOG. PETS: DOG. YARSANI NO PREFERENCE. LANGUAGE CROATIAN. EDUCATION 10TH GRADE. PSYCHOLOGICAL HX TREATMENT NO . PAIN CLINIC PFS, CLERGY, PUBLIC HEALTH REFERRALS PFS REFERRAL NEEDED? NO , CLERGY REFERRAL NEEDED? NO , PUBLIC HEALTH REFERRAL NEEDED? NO , WAS THE PROVIDER NOTIFIED OF ANY PERTINENT INFO? NO . PATIENT: ____. ADVANCE DIRECTIVES HEALTH CARE PROXY? NO, POWER OF LEAF SUCKER OPERATOR? NO. REVIEW OF SYSTEMS REVIEWED BY: PROVIDER: FIFI DEL CASTILLO . CONSTITUTIONAL: ANY CHANGE IN YOUR MEDICAL CONDITION? NO . CHILLS NO . FEVER NO . INFECTION: DO YOU HAVE NEW INFECTIONS? NO . DO YOU HAVE HISTORY OF MRSA? NO . MUSCULOSKELETAL: ANY NEW PATTERNS OF PAIN OR NUMBNESS? NO . GASTROENTEROLOGY: ANY NEW CHANGE IN BOWEL CONTROL? NO . GENITOURINARY: ANY NEW CHANGE IN BLADDER CONTROL? NO . IS THERE A CHANCE YOU COULD BE ? NO . HEMATOLOGY/LYMPH: DO YOU TAKE ANY BLOOD THINNERS? (FOR EXAMPLE- COUMADIN, PLAVIX, AGGRENOX, PLATEL, PRADAXA, OR XARELTO) NO . WHEN WAS YOUR LAST DOSE? DATE: TIME: . NEUROLOGY: HAVE YOU FALLEN IN THE PAST 6 MONTHS? NO . ANY NEW EXTREMITY NUMBNESS OR WEAKNESS? NO . CARDIOLOGY: DO YOU HAVE A PACEMAKER OR DEFIBRILLATOR? NO . RESPIRATORY: HAVE YOU BEEN SICK IN THE PAST WEEK? NO . FEVER NO . FLU LIKE SYMPTOMS? NO . COUGH NO . INTEGUMENTARY: DO YOU HAVE ANY RASHES OR OPEN SORES? NO . ALLERGIC/IMMUNO: ARE YOU ALLERGIC TO SHELLFISH OR IV DYE? NO . ANY NEW ALLERGIES? NO . PSYCHIATRIC: DO YOU HAVE THOUGHTS OF HURTING YOURSELF OR SOMEONE ELSE? NO . ARE YOU ABUSED, NEGLECTED, OR IN AN UNSAFE ENVIRONMENT? NO . ENDOCRINOLOGY: ARE YOU DIABETIC? NO . OTHER: DO YOU NEED ANY PRESCRIPTIONS? NO . IF YES, PLEASE LIST: ____ . ANY NEW PROBLEMS WITH YOUR MEDICATIONS? NO . WHEN DID YOU LAST EAT? ____ . WHEN DID YOU LAST DRINK? ____ . WHAT DID YOU LAST DRINK? ____ . NAME OF PERSON DRIVING YOU HOME? ____ . DO YOU HAVE ANY OTHER QUESTIONS OR CONCERNS NO . VITAL SIGNS WT 130 LBS, HT 67 IN, BMI 20.36 INDEX, BP 127/87 MM HG, HR 71 /MIN, RR 16 /MIN, TEMP 97.6 F, OXYGEN SAT % 99%, NA INITIALS AW 1202. EXAMINATION GENERAL EXAMINATION: LUNGS:LUNG SOUNDS ARE CLEAR. HEART:HEART RATE REGULAR. MUSCULOSKELETAL:*, MUSCLE STRENGTH TESTING 5/5 BILATERAL UPPER EXTREMITIES., PALPATION: POSITIVE FOR PAIN OVER C SPINE. POSITIVE FOR PAIN OVER CERVICAL PARASPINALS L>R.TRIGGER POINTS ELICITED LEFT UPPER BACK.SCOLIOSIS NOTED.. DIAGNOSTIC:04-24-16-MRI CERVICAL SPINE-REVIEWED. ASSESSMENTS MYALGIA - M79.1 (PRIMARY) CERVICALGIA - M54.2 TREATMENT MYALGIA INCREASE GABAPENTIN CAPSULE, 100 MG, 2, ORALLY, BID, 30 DAY(S), 120, REFILLS 1 REFILL TRAMADOL HCL TABLET, 50 MG, 1-2, ORALLY, 1 TAB Q 6H PRN MDD4 30 TABS.SHOULD LAST 30 DAYS, 30 DAY(S), 30, REFILLS 0 PROCEDURE CODES FA211 ESTABILISHED PATIENT [facility] CHARGE DISPOSITION & COMMUNICATION FOLLOW UP 6 WEEKS ELECTRONICALLY SIGNED BY ABUNDIO SHARPE ON 02/09/2017 AT 03:53 PM EDT DISCLAIMER : THIS IS A VISIT SUMMARY EXTRACTED FROM THE [employer] CHART. IT IS NOT A COPY OF THE [employer] JV PROGRESS NOTE. MTDD
== END ==
LOC: M PAIN 12:00
PROVIDERS: ATTEND Nurse Practitioner Family
DX: M79.1 Myalgia (principal); M54.2 Cervicalgia; G89.29 Other chronic pain; F17.210 Nicotine dependence, cigarettes, uncomplicated; Z79.891 Long term (current) use of opiate analgesic; Z79.899 Other long term (current) drug therapy; Z88.0 Allergy status to penicillin; Z91.018 Allergy to other foods

== ENCOUNTER 2017-02-05 07:30 | Outpatient (RCR) | payer OTHER ==
[~2017-02-05 07:30] MED LIST changes: -CLAR1TAB13 PO; -DIPH25CA PO; -GABA-283 PO; -IBUP80TA PO
[2017-02-07] MEDS ORDERED: GABA-283 PO (10:37)
[2017-02-07] MEDS ORDERED: TRAM50TA2 PO (10:37)
[2017-02-07] MEDS ORDERED: DIPH25CA PO (13:02)
[2017-02-07] MEDS ORDERED: IBUP80TA PO (13:02)
[2017-02-07] MEDS ORDERED: TYLE325T5 PO (13:02)
== END 2017-02-22 | disposition home or self-care (01) ==
LOC: M PT 07:30
PROVIDERS: ATTEND Nurse Practitioner Adult Health
DX: Z51.89 Encounter for other specified aftercare (principal); M54.2 Cervicalgia

== ENCOUNTER 2017-02-07 10:23 | Emergency (ER) | payer OTHER ==
[~2017-02-07] VITALS: Ht 170.2 cm; Wt 55.5 kg
[2017-02-07] MEDS ORDERED: TRAM50TA2 PO (10:37)
[2017-02-07] MEDS ORDERED: GABA-283 PO (10:37)
[2017-02-07] MEDS ORDERED: NS 1,000 ML IV ONE (11:00)
[2017-02-07 11:14] LABS: BASO % 0.8 % (0.0-1.0); EOS # 0.1 K/mm3 (0.0-0.50); EOS % 2.7 % (0.0-3.0); LARGE UNSTAINED CELL # 0.2 K/mm3 (0.0-0.4); LARGE UNSTAINED CELL % 3.3 % (0.0-4.0); LYMPH # 2.3 K/mm3 (1.5-4.5); LYMPH % 42.5 % (24.0-44.0); MEAN CORPUSCULAR HEMOGLOBIN 31.5 pg (27.0-33.0); MEAN CORPUSCULAR HGB CONC 34.4 g/dl (32.0-36.5); MEAN CORPUSCULAR VOLUME 91.8 fl (80.0-96.0); MONO # 0.3 K/mm3 (0.0-0.8); MONO % 6.5 % (0.0-5.0); NEUTROPHILS # 2.3 K/mm3 (1.8-7.7); NEUTROPHILS % 44.3 % (36.0-66.0); PLATELET COUNT, AUTOMATED 278 k/mm3 (150-450); RED CELL DISTRIBUTION WIDTH 13.2 % (11.5-14.5); WHITE BLOOD COUNT 5.1 K/mm3 (4.0-10.0)
[2017-02-07 11:29] LABS: ANION GAP 5 MEQ/L (8-16); BLOOD UREA NITROGEN 10 MG/DL (7-18); CALCIUM LEVEL 9.2 MG/DL (8.5-10.1); CARBON DIOXIDE LEVEL 29 MEQ/L (21-32); CHLORIDE LEVEL 108 MEQ/L (98-107); CREATININE FOR GFR 0.77 MG/DL (0.70-1.30); GLOMERULAR FILTRATION RATE > 60.0 (>60); GLUCOSE, FASTING 95 MG/DL (70-105); SODIUM LEVEL 142 MEQ/L (136-145)
--- NOTE | 2017-02-07 11:31 | REP ---
CT Head without contrast HISTORY: Rule out bleed COMPARISON: 11/14/2016 There is no intraparenchymal hemorrhage, acute infarct, mass or midline shift. The ventricular system is normal in appearance. There is no extra cerebral collection. There is no fracture. The visualized sinuses are clear. IMPRESSION: There is no intracranial lesion. Signed by Rl Rodriguez MD 02/07/2017 11:21 A
[2017-02-07] MEDS ORDERED: diphenhydrAMINE INJ 50MG/ML VIAL (J1200) IV STA (11:43)
[2017-02-07] MEDS ORDERED: METOCLOPRAMIDE INJ 10MG/2ML VIAL (J2765) IV ONE (11:45)
[2017-02-07] MEDS ORDERED: KETOROLAC 30 MG/ML VIAL (J1885) IV ONE (11:45)
[2017-02-07] MEDS ORDERED: IBUP80TA PO (13:02)
[2017-02-07] MEDS ORDERED: TYLE325T5 PO (13:02)
[2017-02-07] MEDS ORDERED: DIPH25CA PO (13:02)
[2017-02-07 13:06] VITALS: BP 110/64
== END 2017-02-07 13:11 | disposition home or self-care (01) ==
LOC: M ED 10:23
DX: R51 Headache (principal); F17.210 Nicotine dependence, cigarettes, uncomplicated

== ENCOUNTER 2017-02-16 20:36 | Emergency (ER) | payer OTHER ==
[~2017-02-16] VITALS: Ht 170.2 cm; Wt 56.0 kg
[~2017-02-16 20:36] MED LIST changes: +DIPH25CA PO; +GABA-283 PO; +IBUP80TA PO
[2017-02-16] MEDS ORDERED: KETOROLAC 30 MG/ML VIAL (J1885) IV ONE (21:00)
[2017-02-16] MEDS ORDERED: diphenhydrAMINE INJ 50MG/ML VIAL (J1200) IV STA (21:00)
[2017-02-16] MEDS ORDERED: NS 1,000 ML IV ONE (21:00)
[2017-02-16] MEDS ORDERED: METOCLOPRAMIDE INJ 10MG/2ML VIAL (J2765) IV ONE (21:00)
--- NOTE | 2017-02-16 21:30 | REPUSA ---
CT of the head Clinical history: altered mental status. Comparison: 11/14/2016. Technique: Multiple axial CT images were obtained through the head without administration of contrast . Findings: The ventricles and sulci are symmetric bilaterally. There is no evidence of acute hemorrhag e or infarct. There is no midline shift, mass effect, or extra-axial fluid collection. The osseous st ructures are unremarkable. The visualized paranasal sinuses and mastoid air cells are clear, other th an stable osteoma within the left frontal sinus. Impression: 1. No acute intracranial abnormality. 2. 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
[2017-02-16 21:41] LABS: BASO % 0.8 % (0.0-1.0); EOS # 0.1 K/mm3 (0.0-0.50); EOS % 1.1 % (0.0-3.0); LARGE UNSTAINED CELL # 0.2 K/mm3 (0.0-0.4); LARGE UNSTAINED CELL % 2.8 % (0.0-4.0); LYMPH # 2.6 K/mm3 (1.5-4.5); LYMPH % 36.7 % (24.0-44.0); MEAN CORPUSCULAR HEMOGLOBIN 31.8 pg (27.0-33.0); MEAN CORPUSCULAR HGB CONC 34.5 g/dl (32.0-36.5); MONO # 0.4 K/mm3 (0.0-0.8); MONO % 5.6 % (0.0-5.0); NEUTROPHILS # 3.5 K/mm3 (1.8-7.7); PLATELET COUNT, AUTOMATED 297 k/mm3 (150-450); RED CELL DISTRIBUTION WIDTH 13.4 % (11.5-14.5); WHITE BLOOD COUNT 6.5 K/mm3 (4.0-10.0)
[2017-02-16 22:02] LABS: ALBUMIN 3.7 GM/DL (3.2-5.2); ALBUMIN/GLOBULIN RATIO 1.23 (1.00-1.93); ALKALINE PHOSPHATASE 74 U/L (45-117); ALT/SGPT 12 U/L (12-78); ANION GAP 7 MEQ/L (8-16); AST/SGOT 11 U/L (15-37); BILIRUBIN,DIRECT 0.1 MG/DL (0.0-0.2); BILIRUBIN,TOTAL 0.5 MG/DL (0.2-1.0); BLOOD UREA NITROGEN 9 MG/DL (7-18); CALCIUM LEVEL 9.1 MG/DL (8.5-10.1); CARBON DIOXIDE LEVEL 28 MEQ/L (21-32); CHLORIDE LEVEL 103 MEQ/L (98-107); CREATININE FOR GFR 1.06 MG/DL (0.70-1.30); GLOMERULAR FILTRATION RATE > 60.0 (>60); GLUCOSE, FASTING 104 MG/DL (70-105); POTASSIUM SERUM 3.8 MEQ/L (3.5-5.1); SODIUM LEVEL 138 MEQ/L (136-145); TOTAL PROTEIN 6.7 GM/DL (6.4-8.2)
[2017-02-16 22:28] LABS: METHADONE URINE NEGATIVE (NEGATIVE)
[2017-02-16 23:15] VITALS: BP 120/72
--- NOTE | 2017-02-18 11:14 | ECGEPIP ---
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
== END 2017-02-16 23:17 | disposition home or self-care (01) ==
LOC: M ED 20:36
DX: G43.909 Migraine, unspecified, not intractable, without status migrainosus (principal); Z72.0 Tobacco use; Z86.73 Personal history of transient ischemic attack (TIA), and cerebral infarction without residual deficits
CPT/HCPCS: 70450; 80048; 80076; 80307; 80320; 80329; 82550; 82553; 84443; 85025; 93000; 93041; 94760; 96361; 96374; 96375; 99284; J1200; J1885; J2765

== ENCOUNTER 2017-03-19 09:39 | Emergency (ER) | payer OTHER ==
[~2017-03-19] VITALS: Ht 170.2 cm; Wt 55.6 kg
[2017-03-19] MEDS ORDERED: CLAR1TAB13 PO (10:40)
[2017-03-19 10:48] VITALS: BP 151/91
== END 2017-03-19 10:48 | disposition home or self-care (01) ==
LOC: M ED 09:39
DX: J01.90 Acute sinusitis, unspecified (principal); Z72.0 Tobacco use

== ENCOUNTER → 2017-07-16 | Outpatient (REF) | payer OTHER ==
[~2017-07-16] MED LIST changes: +CLAR1TAB13 PO
[2017-07-16 14:57] LABS: BASO # 0.1 10^3/uL (0.0-0.2); BASO % 1.3 % (0.0-1.0); EOS # 0.3 10^3/uL (0.0-0.50); EOS % 3.1 % (0.0-3.0); IMMATURE GRANULOCYTE % 0.2 % (0-0); LYMPH % 34.5 % (24.0-44.0); MEAN CORPUSCULAR HEMOGLOBIN 30.6 pg (27.0-33.0); MONO # 0.6 10^3/uL (0.0-0.8); MONO % 6.5 % (0.0-5.0); NEUTROPHILS # 4.7 10^3/uL (1.8-7.7); NEUTROPHILS % 54.4 % (36.0-66.0); PLATELET COUNT, AUTOMATED 332 10^3/uL (150-450); RED CELL DISTRIBUTION WIDTH 13.8 % (11.5-14.5); WHITE BLOOD COUNT 8.7 10^3/uL (4.0-10.0)
[2017-07-16 15:25] LABS: ALBUMIN 4.1 GM/DL (3.2-5.2); ALBUMIN/GLOBULIN RATIO 1.21 (1.00-1.93); ALKALINE PHOSPHATASE 73 U/L (45-117); ALT/SGPT 15 U/L (12-78); ANION GAP 6 MEQ/L (8-16); AST/SGOT 10 U/L (7-37); BILIRUBIN,TOTAL 0.3 MG/DL (0.2-1.0); BLOOD UREA NITROGEN 8 MG/DL (7-18); CALCIUM LEVEL 9.2 MG/DL (8.5-10.1); CARBON DIOXIDE LEVEL 32 MEQ/L (21-32); CHLORIDE LEVEL 104 MEQ/L (98-107); CHOLESTEROL LEVEL 185 MG/DL (<200); CREATININE FOR GFR 0.88 MG/DL (0.70-1.30); FREE T4 1.04 NG/DL (0.76-1.46); GLOMERULAR FILTRATION RATE > 60.0 (>60); GLUCOSE, FASTING 98 MG/DL (70-105); SODIUM LEVEL 142 MEQ/L (136-145); TOTAL PROTEIN 7.5 GM/DL (6.4-8.2); TRIGLYCERIDES LEVEL 104 MG/DL (<150)
== END ==
LOC: M SFHCSACK 08:12
PROVIDERS: ATTEND Physician Assistant
DX: M79.1 Myalgia (principal); Z13.220 Encounter for screening for lipoid disorders; F41.8 Other specified anxiety disorders; Z13.21 Encounter for screening for nutritional disorder

== ENCOUNTER 2017-07-23 04:42 | Emergency (ER) | payer OTHER ==
[2017-07-23] MEDS: METHOCARBAMOL 500 MG TAB PO (06:12)
[2017-07-23] MEDS: NORCO, ANEXSIA 5/325MG TABLET (HYDROcodone/ACETAMINOPHEN) PO (06:12)
[2017-07-23] MEDS: IBUPROFEN 800 MG TAB PO (06:13)
== END 2017-07-23 06:57 | disposition home or self-care (01) ==
LOC: M ED 04:42
DX: M50.30 Other cervical disc degeneration, unspecified cervical region (principal); G89.29 Other chronic pain; J44.9 Chronic obstructive pulmonary disease, unspecified; G47.33 Obstructive sleep apnea (adult) (pediatric); F17.210 Nicotine dependence, cigarettes, uncomplicated; Z86.69 Personal history of other diseases of the nervous system and sense organs; Z88.0 Allergy status to penicillin; Z91.018 Allergy to other foods
CPT/HCPCS: 72052

== ENCOUNTER → 2017-08-06 | Outpatient (CLI) | payer OTHER | LOC: M PAIN 09:00 | DX: G89.29 Other chronic pain (principal); M54.2 Cervicalgia; M79.1 Myalgia; E78.00 Pure hypercholesterolemia, unspecified; G25.81 Restless legs syndrome; E03.9 Hypothyroidism, unspecified; M19.031 Primary osteoarthritis, right wrist; F17.200 Nicotine dependence, unspecified, uncomplicated; Z79.891 Long term (current) use of opiate analgesic; Z79.899 Other long term (current) drug therapy | CPT/HCPCS: 20552 ==

== ENCOUNTER 2017-08-16 13:58 | Outpatient (RCR) | payer OTHER | END 2017-08-25 | LOC: M PT 13:58 | DX: Z51.89 Encounter for other specified aftercare (principal); M54.2 Cervicalgia | CPT/HCPCS: 97010 ==

== ENCOUNTER → 2017-09-02 | Outpatient (CLI) | payer OTHER ==
[~2017-09-02] MED LIST changes: -ALBU17IN INH; +BUPIVACAINE HCL 0.25% 10 ML VIAL As Ordered; +BUPIVACAINE HCL 0.25% 30 ML VIAL As Ordered; -CLAR1TAB13 PO; -DIPH25CA PO; -EXCETAB81 PO; -GABA-283 PO; -IBUP80TA PO; -NAPR250T4 PO; -PRED20TA PO; -TRAM50TA2 PO; -TRAZ50TA OR; +TRIAMCINOLONE ACETONIDE SUSP 40 MG/ML VIAL (J3301) As Ordered; -TYLE325T5 PO; -ZITHTAB PO; -ZOLO100T OR; +diazePAM 5 MG TAB As Ordered
== END ==
LOC: M PAIN 11:15
DX: G89.29 Other chronic pain (principal); M54.2 Cervicalgia; M54.6 Pain in thoracic spine; M79.1 Myalgia; F10.21 Alcohol dependence, in remission; F32.9 Major depressive disorder, single episode, unspecified; G43.909 Migraine, unspecified, not intractable, without status migrainosus; F41.9 Anxiety disorder, unspecified; Z79.891 Long term (current) use of opiate analgesic; Z88.0 Allergy status to penicillin; Z88.8 Allergy status to other drugs, medicaments and biological substances; Z91.018 Allergy to other foods
CPT/HCPCS: J3301

== ENCOUNTER 2017-09-23 15:19 | Outpatient (RCR) | payer OTHER | END 2017-10-23 | LOC: M PT 15:19 | DX: Z51.89 Encounter for other specified aftercare (principal); M54.2 Cervicalgia; M79.7 Fibromyalgia ==

== ENCOUNTER 2017-10-07 11:17 | Emergency (ER) | payer OTHER | END 2017-10-07 13:10 | disposition home or self-care (01) | LOC: M ED 11:17 | DX: G44.209 Tension-type headache, unspecified, not intractable (principal); M54.2 Cervicalgia; G89.29 Other chronic pain; Z88.0 Allergy status to penicillin; Z91.018 Allergy to other foods | CPT/HCPCS: 70450 ==

== ENCOUNTER → 2017-10-08 | Outpatient (REF) | payer OTHER ==
[2017-10-08 14:56] LABS: BASO # 0.1 10^3/uL (0.0-0.2); BASO % 1.2 % (0.0-1.0); EOS # 0.2 10^3/uL (0.0-0.50); EOS % 2.4 % (0.0-3.0); HEMATOCRIT 42.9 % (42.0-52.0); HEMOGLOBIN 14.5 g/dl (14.0-18.0); IMMATURE GRANULOCYTE % 0.1 % (0-3.0); LYMPH # 3.8 10^3/uL (1.5-4.5); LYMPH % 49.3 % (24.0-44.0); MEAN CORPUSCULAR HGB CONC 33.8 g/dl (32.0-36.5); MEAN CORPUSCULAR VOLUME 88.8 fl (80.0-96.0); MONO # 0.5 10^3/uL (0.0-0.8); MONO % 7.1 % (0.0-5.0); NEUTROPHILS % 39.9 % (36.0-66.0); PLATELET COUNT, AUTOMATED 340 10^3/uL (150-450); RED BLOOD COUNT 4.83 10^6/uL (4.30-6.10); RED CELL DISTRIBUTION WIDTH 14.1 % (11.5-14.5); WHITE BLOOD COUNT 7.6 10^3/uL (4.0-10.0)
[2017-10-08 15:06] LABS: TOTAL 25(OH) VITAMIN D 22.3 NG/ML (30.0-100.0)
[2017-10-08 15:08] LABS: ALBUMIN/GLOBULIN RATIO 1.21 (1.00-1.93); ALKALINE PHOSPHATASE 74 U/L (45-117); ALT/SGPT 16 U/L (12-78); ANION GAP 6 MEQ/L (8-16); AST/SGOT 10 U/L (7-37); BILIRUBIN,TOTAL 0.5 MG/DL (0.2-1.0); BLOOD UREA NITROGEN 10 MG/DL (7-18); CALCIUM LEVEL 9.2 MG/DL (8.5-10.1); CARBON DIOXIDE LEVEL 31 MEQ/L (21-32); CHLORIDE LEVEL 105 MEQ/L (98-107); GLOMERULAR FILTRATION RATE > 60.0 (>60); GLUCOSE, FASTING 90 MG/DL (70-100); POTASSIUM SERUM 4.2 MEQ/L (3.5-5.1); SODIUM LEVEL 142 MEQ/L (136-145); TOTAL PROTEIN 7.3 GM/DL (6.4-8.2)
== END ==
LOC: M SFHCSACK 08:18
DX: M79.1 Myalgia (principal); E55.9 Vitamin D deficiency, unspecified
CPT/HCPCS: 82306

== ENCOUNTER 2017-11-18 21:08 | Emergency (ER) | payer OTHER ==
[2017-11-18] MEDS: LORATADINE 10 MG TAB PO (23:45)
[2017-11-18] MEDS: NORCO, ANEXSIA 5/325MG TABLET (HYDROcodone/ACETAMINOPHEN) PO (23:45)
== END 2017-11-19 00:06 | disposition home or self-care (01) ==
LOC: M ED 11-19 00:06
DX: R51 Headache (principal); J01.90 Acute sinusitis, unspecified; Z88.0 Allergy status to penicillin; Z91.018 Allergy to other foods; F17.210 Nicotine dependence, cigarettes, uncomplicated
CPT/HCPCS: 99282

== ENCOUNTER → 2018-04-21 | Outpatient (REF) | payer OTHER ==
[2018-04-21 13:13] LABS: BASO # 0.1 10^3/uL (0.0-0.2); BASO % 1.4 % (0.0-1.0); EOS # 0.1 10^3/uL (0.0-0.50); EOS % 1.3 % (0.0-3.0); HEMATOCRIT 43.8 % (42.0-52.0); HEMOGLOBIN 15.1 g/dl (13.5-17.5); IMMATURE GRANULOCYTE % 0.2 % (0-3.0); LYMPH # 2.5 10^3/uL (1.5-4.5); LYMPH % 39.7 % (24.0-44.0); MEAN CORPUSCULAR HEMOGLOBIN 30.9 pg (27.0-33.0); MEAN CORPUSCULAR HGB CONC 34.5 g/dl (32.0-36.5); MEAN CORPUSCULAR VOLUME 89.8 fl (80.0-96.0); MONO # 0.5 10^3/uL (0.0-0.8); MONO % 7.1 % (0.0-5.0); NEUTROPHILS # 3.2 10^3/uL (1.8-7.7); NEUTROPHILS % 50.3 % (36.0-66.0); PLATELET COUNT, AUTOMATED 317 10^3/uL (150-450); RED BLOOD COUNT 4.88 10^6/uL (4.30-6.10); RED CELL DISTRIBUTION WIDTH 13.7 % (11.5-14.5); WHITE BLOOD COUNT 6.4 10^3/uL (4.0-10.0)
[2018-04-21 14:13] LABS: ALBUMIN 3.7 GM/DL (3.2-5.2); ALBUMIN/GLOBULIN RATIO 0.95 (1.00-1.93); ALKALINE PHOSPHATASE 75 U/L (45-117); ALT/SGPT 18 U/L (12-78); ANION GAP 8 MEQ/L (8-16); AST/SGOT 14 U/L (7-37); BILIRUBIN,TOTAL 0.4 MG/DL (0.2-1.0); BLOOD UREA NITROGEN 11 MG/DL (7-18); C REACTIVE PROTEIN QUANTITATIV < 0.30 MG/DL (0.00-0.30); CALCIUM LEVEL 8.6 MG/DL (8.5-10.1); CARBON DIOXIDE LEVEL 29 MEQ/L (21-32); CHLORIDE LEVEL 104 MEQ/L (98-107); CHOLESTEROL LEVEL 171 MG/DL (<200); CHOLESTEROL RISK RATIO 3.717 (<5); CREATININE FOR GFR 0.86 MG/DL (0.70-1.30); GLOMERULAR FILTRATION RATE > 60.0 (>60); GLUCOSE, FASTING 84 MG/DL (70-100); HDL CHOLESTEROL 46 MG/DL (>40); LDL CHOLESTEROL 107 MG/DL (<100); NON-HDL-C 125 MG/DL; POTASSIUM SERUM 4.3 MEQ/L (3.5-5.1); PTH INTACT 34.3 PG/ML (18.5-88.0); SODIUM LEVEL 141 MEQ/L (136-145); TOTAL 25(OH) VITAMIN D 71.4 NG/ML (30.0-100.0); TOTAL PROTEIN 7.6 GM/DL (6.4-8.2); TRIGLYCERIDES LEVEL 91 MG/DL (<150)
== END ==
LOC: M LABDRAW1 11:33
DX: M25.512 Pain in left shoulder (principal); E78.00 Pure hypercholesterolemia, unspecified; E55.9 Vitamin D deficiency, unspecified

== ENCOUNTER 2018-05-09 13:36 | Outpatient (RCR) | payer OTHER | END 2018-05-25 | LOC: M PT 13:36 | DX: M50.30 Other cervical disc degeneration, unspecified cervical region (principal) | CPT/HCPCS: 97163 ==

== ENCOUNTER 2018-05-30 10:05 | Emergency (ER) | payer OTHER | END 2018-05-30 12:15 | disposition home or self-care (01) | LOC: M ED 10:05 | DX: M47.812 Spondylosis without myelopathy or radiculopathy, cervical region (principal); M54.12 Radiculopathy, cervical region; J44.9 Chronic obstructive pulmonary disease, unspecified; L40.9 Psoriasis, unspecified; G47.30 Sleep apnea, unspecified; Z88.0 Allergy status to penicillin; Z91.018 Allergy to other foods | CPT/HCPCS: 99283 ==

== ENCOUNTER 2018-06-21 10:57 | Emergency (ER) | payer OTHER ==
[2018-06-21 11:46] LABS: BASO # 0.1 10^3/uL (0.0-0.2); BASO % 1.4 % (0.0-1.0); EOS # 0.2 10^3/uL (0.0-0.50); EOS % 2.4 % (0.0-3.0); HEMATOCRIT 45.7 % (42.0-52.0); HEMOGLOBIN 15.6 g/dl (13.5-17.5); IMMATURE GRANULOCYTE % 0.3 % (0-3.0); LYMPH # 2.5 10^3/uL (1.5-4.5); MEAN CORPUSCULAR HEMOGLOBIN 30.6 pg (27.0-33.0); MEAN CORPUSCULAR HGB CONC 34.1 g/dl (32.0-36.5); MEAN CORPUSCULAR VOLUME 89.6 fl (80.0-96.0); MONO # 0.4 10^3/uL (0.0-0.8); MONO % 6.4 % (0.0-5.0); NEUTROPHILS # 3.2 10^3/uL (1.8-7.7); NEUTROPHILS % 50.5 % (36.0-66.0); PLATELET COUNT, AUTOMATED 325 10^3/uL (150-450); RED CELL DISTRIBUTION WIDTH 13.3 % (11.5-14.5); WHITE BLOOD COUNT 6.4 10^3/uL (4.0-10.0)
[2018-06-21 12:10] LABS: ANION GAP 6 MEQ/L (8-16); BLOOD UREA NITROGEN 11 MG/DL (7-18); CALCIUM LEVEL 9.7 MG/DL (8.5-10.1); CARBON DIOXIDE LEVEL 31 MEQ/L (21-32); CHLORIDE LEVEL 104 MEQ/L (98-107); CREATININE FOR GFR 0.95 MG/DL (0.70-1.30); ERYTHROCYTE SEDIMENTATION RATE 3 mm/hr (0-15); GLOMERULAR FILTRATION RATE > 60.0 (>60); GLUCOSE, FASTING 106 MG/DL (70-100); POTASSIUM SERUM 4.3 MEQ/L (3.5-5.1); SODIUM LEVEL 141 MEQ/L (136-145)
[2018-06-21] MEDS: METOCLOPRAMIDE INJ 10MG/2ML VIAL (J2765) IV (12:14)
[2018-06-21] MEDS: KETOROLAC 30 MG/ML VIAL (J1885) IV (12:14)
== END 2018-06-21 13:00 | disposition home or self-care (01) ==
LOC: M ED 10:57
DX: G44.209 Tension-type headache, unspecified, not intractable (principal); J32.9 Chronic sinusitis, unspecified; D14.0 Benign neoplasm of middle ear, nasal cavity and accessory sinuses; F17.200 Nicotine dependence, unspecified, uncomplicated; Z88.0 Allergy status to penicillin; Z91.018 Allergy to other foods
CPT/HCPCS: J1885

== ENCOUNTER → 2018-08-30 | Outpatient (CLI) | payer OTHER ==
[~2018-08-30] MED LIST changes: +AFRI0.0511; +ALBU17IN INH; -BUPIVACAINE HCL 0.25% 10 ML VIAL As Ordered; -BUPIVACAINE HCL 0.25% 30 ML VIAL As Ordered; +CLAR1TAB13 PO; +DIPH25CA PO; +DRIS50003 PO; +ENDO7.5T11 PO; +EXCETAB49 PO; +EXCETAB81 PO; +FLON1SPR; +FOLI1TAB11 PO; +GABA-1171; +GABA-845 PO; +IBUP80TA PO; +LIDO1PAD TOP; +NAPR-50 PO; +NAPR-885 PO; +NAPR250T4 PO; +NORCOTAB PO; +PERCOCET PO; +PRED20TA; +PRED20TA PO; +ROBA500T PO; +SUDATAB18 PO; +THIA100TA PO; +TRAM50TA2 PO; +TRAZ50TA OR; -TRIAMCINOLONE ACETONIDE SUSP 40 MG/ML VIAL (J3301) As Ordered; +TYLE325T5 PO; +VITA50005; +VITMTA PO; +ZITHTAB PO; +ZOLO100T OR; -diazePAM 5 MG TAB As Ordered
--- NOTE | 2018-08-30 19:55 | REP ---
MRI CERVICAL SPINE WITHOUT CONTRAST: HISTORY: Neck pain. A small left paracentral disc protrusion with associated osteophyte formation is present at the C5-6 level. There is minimal effacement of the thecal sac without spinal cord compression. Bilateral uncinate process hypertrophy is present. This produces mild and moderate narrowing of the right and left C5 neural foramina respectively. There is no other disc bulge or herniation. The remaining neural foramina are patent. The spinal cord is normal in signal intensity. Nerve root sleeve diverticular or perineural cysts are present on the right at the C6-7 level and on the left at the T1-2 level. The C5-6 intervertebral disc is decreased in height consistent with disc degeneration. Normal signal intensity is present in the cervical vertebral bodies. IMPRESSION:There is cervical spondylosis at the C5-6 level without spinal cord compression. Electronically Signed by Rl Rodriguez MD 08/31/2018 08:07 A
== END ==
LOC: M RAD 16:22
PROVIDERS: ATTEND Nurse Practitioner Family
DX: M50.30 Other cervical disc degeneration, unspecified cervical region (principal)

== ENCOUNTER 2018-12-18 10:13 | Emergency (ER) | payer OTHER ==
[~2018-12-18 10:13] MED LIST changes: +HYDR-3715 PO; -NAPR-50 PO; +NAPR-837 PO; -NORCOTAB PO
[2018-12-18 11:08] LABS: BASO # 0.1 10^3/uL (0.0-0.2); BASO % 1.2 % (0.0-1.0); EOS # 0.1 10^3/uL (0.0-0.50); EOS % 2.6 % (0.0-3.0); LYMPH # 2.6 10^3/uL (1.5-4.5); LYMPH % 51.4 % (24.0-44.0); MEAN CORPUSCULAR HEMOGLOBIN 31.1 pg (27.0-33.0); MEAN CORPUSCULAR HGB CONC 34.1 g/dl (32.0-36.5); MEAN CORPUSCULAR VOLUME 91.3 fl (80.0-96.0); MONO # 0.4 10^3/uL (0.0-0.8); MONO % 8.3 % (0.0-5.0); NEUTROPHILS # 1.9 10^3/uL (1.8-7.7); NEUTROPHILS % 36.3 % (36.0-66.0); PLATELET COUNT, AUTOMATED 330 10^3/uL (150-450); RED BLOOD COUNT 4.82 10^6/uL (4.30-6.10); WHITE BLOOD COUNT 5.1 10^3/uL (4.0-10.0)
--- NOTE | 2018-12-18 11:26 | REP ---
Clinical: Acute headache . Comparison: 06/21/2018 . Findings: The ventricles, sulci, and cisterns are normal in position and appearance. Victoria-white differentiation is maintained. No acute intracranial hemorrhage, mass/mass effect, pathology or trauma/injury. No evidence for acute infarction. No extra-axial fluid collection. Calvarium is intact. Paranasal sinuses and mastoid air cells are clear. Impression: Normal noncontrast head CT. No evidence for acute intracranial pathology or trauma/injury. Electronically Signed by Washington Subramanian MD 12/18/2018 11:18 A
[2018-12-18 11:37] LABS: ALT/SGPT 15 U/L (12-78); BILIRUBIN,DIRECT 0.1 MG/DL (0.0-0.2); BILIRUBIN,TOTAL 0.4 MG/DL (0.2-1.0); BLOOD UREA NITROGEN 9 MG/DL (7-18); CALCIUM LEVEL 9.6 MG/DL (8.5-10.1); CARBON DIOXIDE LEVEL 29 MEQ/L (21-32); CHLORIDE LEVEL 108 MEQ/L (98-107); CK-MB VALUE MASS < 1.0 NG/ML (<3.6); CPK CREATINE PHOSPHOKINASE 97 U/L (39-308); CREATININE FOR GFR 0.82 MG/DL (0.70-1.30); GLOMERULAR FILTRATION RATE > 60.0 (>60); GLUCOSE, FASTING 105 MG/DL (70-100); LIPASE 126 U/L (73-393); MB/CK RELATIVE INDEX 1.03 (< OR =4); POTASSIUM SERUM 4.3 MEQ/L (3.5-5.1); SODIUM LEVEL 143 MEQ/L (136-145); TOTAL PROTEIN 6.9 GM/DL (6.4-8.2); TROPONIN I < 0.02 NG/ML (< 0.10)
[2018-12-18] MEDS ORDERED: NS 1,000 ML IV ONE (12:15)
[2018-12-18 13:27] VITALS: BP 138/65
--- NOTE | 2018-12-18 19:39 | ECGEPIP ---
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
== END 2018-12-18 13:30 | disposition home or self-care (01) ==
LOC: M ED 10:13
DX: R42 Dizziness and giddiness (principal); R51 Headache; I95.1 Orthostatic hypotension; G47.00 Insomnia, unspecified; Z72.0 Tobacco use; Z88.0 Allergy status to penicillin; Z91.018 Allergy to other foods

== ENCOUNTER 2019-01-12 07:44 | Emergency (ER) | payer OTHER ==
[~2019-01-12] VITALS: Ht 170.2 cm; Wt 54.2 kg
[2019-01-12] MEDS ORDERED: PRED20TA (07:54)
[2019-01-12] MEDS ORDERED: CLIN-30 (07:54)
[2019-01-12] MEDS ORDERED: KETOROLAC 30 MG/ML VIAL (J1885) IV ONE (08:45)
[2019-01-12 09:17] LABS: BASO # 0.1 10^3/uL (0.0-0.2); BASO % 1.2 % (0.0-1.0); EOS # 0.2 10^3/uL (0.0-0.50); EOS % 2.1 % (0.0-3.0); HEMATOCRIT 41.7 % (42.0-52.0); HEMOGLOBIN 14.1 g/dl (13.5-17.5); LYMPH # 2.4 10^3/uL (1.5-4.5); LYMPH % 32.2 % (24.0-44.0); MEAN CORPUSCULAR HEMOGLOBIN 30.4 pg (27.0-33.0); MEAN CORPUSCULAR HGB CONC 33.8 g/dl (32.0-36.5); MEAN CORPUSCULAR VOLUME 89.9 fl (80.0-96.0); MONO # 0.5 10^3/uL (0.0-0.8); NEUTROPHILS # 4.4 10^3/uL (1.8-7.7); NEUTROPHILS % 58.2 % (36.0-66.0); PLATELET COUNT, AUTOMATED 329 10^3/uL (150-450); RED BLOOD COUNT 4.64 10^6/uL (4.30-6.10); WHITE BLOOD COUNT 7.5 10^3/uL (4.0-10.0)
[2019-01-12 09:27] LABS: BLOOD UREA NITROGEN 11 MG/DL (7-18); CARBON DIOXIDE LEVEL 29 MEQ/L (21-32); CHLORIDE LEVEL 105 MEQ/L (98-107); CREATININE FOR GFR 0.89 MG/DL (0.70-1.30); GLOMERULAR FILTRATION RATE > 60.0 (>60); GLUCOSE, FASTING 100 MG/DL (70-100); POTASSIUM SERUM 3.6 MEQ/L (3.5-5.1); SODIUM LEVEL 140 MEQ/L (136-145)
[2019-01-12] MEDS ORDERED: BACL10TA2 PO (10:05)
[2019-01-12 10:09] VITALS: BP 128/88
== END 2019-01-12 10:11 | disposition home or self-care (01) ==
LOC: M ED 07:44
DX: R51 Headache (principal); J44.9 Chronic obstructive pulmonary disease, unspecified; J34.89 Other specified disorders of nose and nasal sinuses; Z72.0 Tobacco use; Z79.899 Other long term (current) drug therapy; Z88.0 Allergy status to penicillin; Z91.018 Allergy to other foods
CPT/HCPCS: 80048; 85025; 96374; 99284; J1885

== ENCOUNTER 2019-03-01 10:40 | Emergency (ER) | payer OTHER ==
[~2019-03-01] VITALS: Ht 170.2 cm; Wt 52.4 kg
[~2019-03-01 10:40] MED LIST changes: +BACL10TA2 PO; +CLIN-30; -DIPH25CA PO; +DIPH25CA32 PO
[2019-03-01] MEDS ORDERED: VITA1CAP25 PO (10:48)
[2019-03-01 12:16] LABS: BASO # 0.1 10^3/uL (0.0-0.2); BASO % 1.2 % (0.0-1.0); EOS # 0.1 10^3/uL (0.0-0.50); EOS % 1.9 % (0.0-3.0); HEMATOCRIT 43.5 % (42.0-52.0); HEMOGLOBIN 14.5 g/dl (13.5-17.5); LYMPH # 2.8 10^3/uL (1.5-4.5); LYMPH % 40.6 % (24.0-44.0); MEAN CORPUSCULAR HEMOGLOBIN 30.3 pg (27.0-33.0); MEAN CORPUSCULAR HGB CONC 33.3 g/dl (32.0-36.5); MONO # 0.4 10^3/uL (0.0-0.8); MONO % 5.8 % (0.0-5.0); NEUTROPHILS # 3.5 10^3/uL (1.8-7.7); NEUTROPHILS % 50.2 % (36.0-66.0); PLATELET COUNT, AUTOMATED 330 10^3/uL (150-450); RED BLOOD COUNT 4.78 10^6/uL (4.30-6.10)
[2019-03-01 12:37] LABS: ALBUMIN 3.8 GM/DL (3.2-5.2); ALT/SGPT 21 U/L (12-78); BILIRUBIN,DIRECT 0.2 MG/DL (0.0-0.2); BILIRUBIN,TOTAL 0.5 MG/DL (0.2-1.0); BLOOD UREA NITROGEN 8 MG/DL (7-18); CALCIUM LEVEL 9.3 MG/DL (8.5-10.1); CARBON DIOXIDE LEVEL 32 MEQ/L (21-32); CHLORIDE LEVEL 109 MEQ/L (98-107); CREATININE FOR GFR 0.79 MG/DL (0.70-1.30); GLOMERULAR FILTRATION RATE > 60.0 (>60); GLUCOSE, FASTING 86 MG/DL (70-100); SODIUM LEVEL 144 MEQ/L (136-145); THYROID STIMULATING HORMONE 0.986 uIU/ML (0.358-3.740); TOTAL PROTEIN 6.9 GM/DL (6.4-8.2)
[2019-03-01 12:38] LABS: TOTAL 25(OH) VITAMIN D 60.2 NG/ML (30.0-100.0)
[2019-03-01 13:03] VITALS: BP 127/82
[2019-03-01] MEDS ORDERED: CYCL5TAB PO (13:06)
== END 2019-03-01 13:15 | disposition home or self-care (01) ==
LOC: M ED 10:40
DX: R51 Headache (principal); E86.0 Dehydration; S29.012A Strain of muscle and tendon of back wall of thorax, initial encounter; X58.XXXA Exposure to other specified factors, initial encounter; Y92.89 Other specified places as the place of occurrence of the external cause; J44.9 Chronic obstructive pulmonary disease, unspecified; F41.9 Anxiety disorder, unspecified; E55.9 Vitamin D deficiency, unspecified; Z88.0 Allergy status to penicillin; F17.210 Nicotine dependence, cigarettes, uncomplicated

== ENCOUNTER 2019-03-04 18:23 | Emergency (ER) | payer OTHER ==
[~2019-03-04] VITALS: Ht 170.2 cm; Wt 54.5 kg
[~2019-03-04 18:23] MED LIST changes: +CYCL5TAB PO; +VITA1CAP25 PO
--- NOTE | 2019-03-04 18:59 | REPVR ---
EXAM: CT Head Without Contrast EXAM DATE/TIME: 03/04/2019 6:45 PM CLINICAL HISTORY: 48 years old, male; Pain; Headache; Additional info: H/o bleed headache TECHNIQUE: Imaging protocol: Computed tomography images of the head without contrast. Radiation optimization: All CT scans at this facility use at least one of these dose optimization techniques: automated exposure control; mA and/or kV adjustment per patient size (includes targeted exams where dose is matched to clinical indication); or iterative reconstruction. COMPARISON: CT Head without contrast 12/18/2018 11:00 AM FINDINGS: Brain: Normal. No hemorrhage. Unremarkable white matter. No mass effect. Ventricles: Normal. No ventriculomegaly. Bones/joints: Unremarkable. No acute fracture. Sinuses: Large left frontal sinus osteoma again demonstrated. Partially opacified ethmoid air cells. Mastoid air cells: Visualized mastoid air cells are well aerated. No mastoid effusion. Soft tissues: Unremarkable. IMPRESSION: No acute intracranial findings. Electronically signed by: Compa Peraza On 03/04/2019 18:59:09 PM
[2019-03-04 19:10] LABS: BASO # 0.1 10^3/uL (0.0-0.2); BASO % 0.8 % (0.0-1.0); EOS # 0.1 10^3/uL (0.0-0.50); EOS % 1.3 % (0.0-3.0); HEMOGLOBIN 13.4 g/dl (13.5-17.5); LYMPH # 3.5 10^3/uL (1.5-4.5); LYMPH % 47.9 % (24.0-44.0); MEAN CORPUSCULAR HEMOGLOBIN 30.8 pg (27.0-33.0); MEAN CORPUSCULAR HGB CONC 34.4 g/dl (32.0-36.5); MEAN CORPUSCULAR VOLUME 89.7 fl (80.0-96.0); MONO # 0.4 10^3/uL (0.0-0.8); MONO % 5.1 % (0.0-5.0); NEUTROPHILS # 3.2 10^3/uL (1.8-7.7); NEUTROPHILS % 44.8 % (36.0-66.0); PLATELET COUNT, AUTOMATED 285 10^3/uL (150-450); RED BLOOD COUNT 4.35 10^6/uL (4.30-6.10); WHITE BLOOD COUNT 7.2 10^3/uL (4.0-10.0)
[2019-03-04] MEDS ORDERED: NS 1,000 ML IV ONE (19:15)
[2019-03-04 19:44] LABS: ALBUMIN 3.7 GM/DL (3.2-5.2); ALT/SGPT 19 U/L (12-78); BILIRUBIN,TOTAL 0.3 MG/DL (0.2-1.0); BLOOD UREA NITROGEN 8 MG/DL (7-18); CALCIUM LEVEL 8.8 MG/DL (8.5-10.1); CARBON DIOXIDE LEVEL 28 MEQ/L (21-32); CHLORIDE LEVEL 107 MEQ/L (98-107); CPK CREATINE PHOSPHOKINASE 102 U/L (39-308); CREATININE FOR GFR 0.94 MG/DL (0.70-1.30); ETHYL ALCOHOL (ETHANOL) < 0.003 % (0.000-0.010); GLOMERULAR FILTRATION RATE > 60.0 (>60); GLUCOSE, FASTING 150 MG/DL (70-100); POTASSIUM SERUM 3.7 MEQ/L (3.5-5.1); SODIUM LEVEL 141 MEQ/L (136-145); TOTAL PROTEIN 6.7 GM/DL (6.4-8.2)
[2019-03-04 20:45] VITALS: BP 107/67
--- NOTE | 2019-03-05 21:33 | ECGEPIP ---
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
== END 2019-03-04 21:03 | disposition home or self-care (01) ==
LOC: M ED 18:23
DX: E86.0 Dehydration (principal); G43.909 Migraine, unspecified, not intractable, without status migrainosus; F33.9 Major depressive disorder, recurrent, unspecified; F41.9 Anxiety disorder, unspecified; F10.10 Alcohol abuse, uncomplicated; G89.29 Other chronic pain; M54.2 Cervicalgia; Z88.0 Allergy status to penicillin; F17.210 Nicotine dependence, cigarettes, uncomplicated
CPT/HCPCS: 36415; 70450; 80053; 82550; 85025; 93005; 93041; 96360; 99285; G0480

== ENCOUNTER → 2019-03-29 | Outpatient (CLI) | payer OTHER ==
--- NOTE | 2019-03-29 09:42 | REP ---
Clinical: Sinusitis . Comparison: 12/02/2017 . Technique: PA and lateral. Findings: The mediastinum and cardiac silhouette are normal. The lung elizondo suggest emphysematous changes without acute consolidation, effusion, or pneumothorax. The skeletal structures are intact and normal. Impression: 1. No acute cardiopulmonary process. Electronically Signed by Washington Subramanian MD 03/29/2019 09:33 A
== END ==
LOC: M SMT 09:23
PROVIDERS: ATTEND Physician Assistant Medical
DX: J01.10 Acute frontal sinusitis, unspecified (principal)

== ENCOUNTER 2019-04-10 18:46 | Emergency (ER) | payer OTHER ==
[~2019-04-10] VITALS: Ht 170.2 cm; Wt 53.6 kg
[2019-04-10 18:46] VITALS: BP 125/72
[2019-04-10] MEDS ORDERED: CYCLOBENZAPRINE 10 MG TAB PO ONE (19:30)
[2019-04-10] MEDS ORDERED: KETOROLAC 60 MG/2 ML VIAL (J1885) IM ONE (19:30)
[2019-04-10] MEDS ORDERED: METOCLOPRAMIDE 10 MG TAB PO ONE (19:30)
== END 2019-04-10 19:45 | disposition home or self-care (01) ==
LOC: M ED 18:46
DX: R51 Headache (principal); Z79.899 Other long term (current) drug therapy; Z88.0 Allergy status to penicillin

== ENCOUNTER 2019-04-29 09:15 | Emergency (ER) | payer OTHER ==
[~2019-04-29] VITALS: Ht 170.2 cm; Wt 54.5 kg
[2019-04-29] MEDS ORDERED: CETIRIZINE (ZyrTEC) 10 MG TAB PO ONE (09:45)
[2019-04-29] MEDS ORDERED: KETOROLAC 60 MG/2 ML VIAL (J1885) IM ONE (09:45)
[2019-04-29] MEDS ORDERED: ACETAMINOPHEN 325 MG TAB PO ONE (09:45)
[2019-04-29] MEDS ORDERED: HM S0.65 NARES (10:32)
[2019-04-29] MEDS ORDERED: KETO10TAB PO (10:32)
[2019-04-29] MEDS ORDERED: OFLOSO OTIC (10:32)
[2019-04-29] MEDS ORDERED: CETI10TA4 PO (10:32)
[2019-04-29 10:44] VITALS: BP 134/82
== END 2019-04-29 10:55 | disposition home or self-care (01) ==
LOC: M ED 09:15
DX: H61.23 Impacted cerumen, bilateral (principal); J30.2 Other seasonal allergic rhinitis; J01.10 Acute frontal sinusitis, unspecified; J34.2 Deviated nasal septum; J44.9 Chronic obstructive pulmonary disease, unspecified; F17.200 Nicotine dependence, unspecified, uncomplicated; G89.29 Other chronic pain; Z88.0 Allergy status to penicillin
CPT/HCPCS: 69210; 96372; 99284; J1885

== ENCOUNTER 2019-05-11 05:30 | Emergency (ER) | payer OTHER ==
[~2019-05-11] VITALS: Ht 170.2 cm; Wt 54.5 kg
[2019-05-11 05:30] VITALS: BP 146/81
[~2019-05-11 05:30] MED LIST changes: +CETI10TA4 PO; +HM S0.65 NARES; +KETO10TAB PO; +OFLOSO OTIC
[2019-05-11] MEDS ORDERED: PANT40TA3 (05:37)
[2019-05-11 06:10] LABS: BASO # 0.1 10^3/uL (0.0-0.2); BASO % 1.2 % (0.0-1.0); EOS # 0.2 10^3/uL (0.0-0.5); EOS % 2.6 % (0.0-3.0); HEMATOCRIT 42.2 % (42.0-52.0); HEMOGLOBIN 14.5 g/dl (13.5-17.5); MEAN CORPUSCULAR HEMOGLOBIN 31.5 pg (27.0-33.0); MEAN CORPUSCULAR HGB CONC 34.4 g/dl (32.0-36.5); MEAN CORPUSCULAR VOLUME 91.7 fl (80.0-96.0); MONO # 0.9 10^3/uL (0.0-0.8); MONO % 9.8 % (0.0-5.0); NEUTROPHILS # 4.5 10^3/uL (1.5-8.5); NEUTROPHILS % 51.2 % (36.0-66.0); PLATELET COUNT, AUTOMATED 326 10^3/uL (150-450); WHITE BLOOD COUNT 8.7 10^3/uL (4.0-10.0)
[2019-05-11 06:33] LABS: ALBUMIN 3.9 GM/DL (3.2-5.2); ALT/SGPT 25 U/L (12-78); BILIRUBIN,DIRECT < 0.1 MG/DL (0.0-0.2); BILIRUBIN,TOTAL 0.4 MG/DL (0.2-1.0); BLOOD UREA NITROGEN 14 MG/DL (7-18); CALCIUM LEVEL 9.3 MG/DL (8.5-10.1); CARBON DIOXIDE LEVEL 33 MEQ/L (21-32); CHLORIDE LEVEL 107 MEQ/L (98-107); CREATININE FOR GFR 0.86 MG/DL (0.70-1.30); GLOMERULAR FILTRATION RATE > 60.0 (>60); GLUCOSE, FASTING 101 MG/DL (70-100); LIPASE 141 U/L (73-393); POTASSIUM SERUM 4.1 MEQ/L (3.5-5.1); SODIUM LEVEL 143 MEQ/L (136-145); TOTAL PROTEIN 7.1 GM/DL (6.4-8.2)
[2019-05-11] MEDS ORDERED: ISOVUE-370 76% 100ML VIAL (Q9967) As Ordered ONE ×2 (06:42→07:44)
[2019-05-11] MEDS ORDERED: NS 1,000 ML IV ONE (06:45)
[2019-05-11] MEDS ORDERED: GI COCKTAIL 50ML BTL(HYOSCYAMINE/MAALOX/LIDOCAINE VISCOUS)(1:3:1) PO ONE (06:45)
[2019-05-11] MEDS ORDERED: ONDANSETRON 4MG/2ML VIAL (J2405) IV ONE (06:45)
[2019-05-11 07:02] LABS: CK-MB VALUE MASS < 1.0 NG/ML (<3.6); CPK CREATINE PHOSPHOKINASE 72 U/L (39-308); MB/CK RELATIVE INDEX 1.39 (< OR =4); TROPONIN I < 0.02 NG/ML (< 0.10)
--- NOTE | 2019-05-11 15:39 | ECGEPIP ---
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
== END 2019-05-11 08:10 | disposition left against medical advice (07) ==
LOC: M ED 05:30
DX: R11.10 Vomiting, unspecified (principal); J44.9 Chronic obstructive pulmonary disease, unspecified; G47.33 Obstructive sleep apnea (adult) (pediatric); K21.9 Gastro-esophageal reflux disease without esophagitis; K27.9 Peptic ulcer, site unspecified, unspecified as acute or chronic, without hemorrhage or perforation; F17.200 Nicotine dependence, unspecified, uncomplicated; Z79.899 Other long term (current) drug therapy; Z88.0 Allergy status to penicillin
CPT/HCPCS: 36415; 80048; 80076; 81001; 82550; 82553; 83690; 85025; 93005; 96360; 96374; 99284; J2405; Q9967

== ENCOUNTER 2019-07-05 11:28 | Emergency (ER) | payer OTHER ==
[~2019-07-05] VITALS: Ht 170.2 cm; Wt 59.7 kg
[2019-07-05 11:28] VITALS: BP 131/80
[~2019-07-05 11:28] MED LIST changes: +PANT40TA3
[2019-07-05] MEDS ORDERED: ACET650T15 PO (11:32)
== END 2019-07-05 12:44 | disposition left against medical advice (07) ==
LOC: M ED 11:28
DX: Z53.21 Procedure and treatment not carried out due to patient leaving prior to being seen by health care provider (principal)

== ENCOUNTER 2019-07-29 09:06 | Emergency (ER) | payer OTHER, SELFPAY ==
[~2019-07-29] VITALS: Ht 170.2 cm; Wt 56.8 kg
[~2019-07-29 09:06] MED LIST changes: +ACET650T15 PO
[2019-07-29] MEDS ORDERED: SM N0.65 (09:18)
[2019-07-29 10:00] LABS: BASO # 0.1 10^3/uL (0.0-0.2); BASO % 0.9 % (0.0-1.0); EOS # 0.2 10^3/uL (0.0-0.5); EOS % 2.4 % (0.0-3.0); HEMATOCRIT 44.2 % (42.0-52.0); HEMOGLOBIN 14.5 g/dl (13.5-17.5); LYMPH # 2.6 10^3/uL (1.5-5.0); LYMPH % 34.4 % (24.0-44.0); MEAN CORPUSCULAR HEMOGLOBIN 30.5 pg (27.0-33.0); MEAN CORPUSCULAR HGB CONC 32.8 g/dl (32.0-36.5); MEAN CORPUSCULAR VOLUME 92.9 fl (80.0-96.0); MONO # 0.5 10^3/uL (0.0-0.8); MONO % 6.8 % (0.0-5.0); NEUTROPHILS # 4.2 10^3/uL (1.5-8.5); NEUTROPHILS % 55.2 % (36.0-66.0); PLATELET COUNT, AUTOMATED 308 10^3/uL (150-450); RED BLOOD COUNT 4.76 10^6/uL (4.30-6.10); WHITE BLOOD COUNT 7.6 10^3/uL (4.0-10.0)
--- NOTE | 2019-07-29 10:13 | REP ---
MAXILLOFACIAL CT STUDY WITHOUT CONTRAST: HISTORY: Left mastoid tenderness. Comparison is made with images from head CT study from October 07, 2017. MAXILLOFACIAL CT FINDINGS: Unerupted wisdom teeth are seen in the mandible bilaterally. The maxillary sinuses are clear except for a small mucous retention cyst anteriorly in the left maxillary sinus. There is partial opacification in the right mid ethmoid air cell. Sphenoid sinuses are clear. The right frontal sinus is clear. There is a benign stable osteoma in the left frontal sinus unchanged from comparison CT study. This measures 4 cm in greatest transverse dimension x 2.9 cm cranial to caudal x 1.7 cm anterior to posterior. It is unchanged. The left frontal sinus is otherwise clear. No intraorbital abnormality is seen. Visualized intracranial structures are unremarkable. IMPRESSION: There is partial opacification in the right ethmoid air cell and there is a small mucous retention cyst in the left maxillary sinus anteriorly. There is a fairly large left frontal sinus osteoma which is unchanged. There is no evidence of acute sinusitis or other acute maxillofacial abnormality. Electronically Signed by Kaz Oh MD 07/29/2019 11:02 A
[2019-07-29 10:31] LABS: CK-MB VALUE MASS < 1.0 NG/ML (<3.6); CPK CREATINE PHOSPHOKINASE 85 U/L (39-308); MB/CK RELATIVE INDEX 1.18 (< OR =4); TROPONIN I < 0.02 NG/ML (< 0.10)
[2019-07-29 10:43] VITALS: BP 109/78
--- NOTE | 2019-07-30 05:46 | ECGEPIP ---
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
== END 2019-07-29 10:44 | disposition home or self-care (01) ==
LOC: M ED 09:06
DX: M79.602 Pain in left arm (principal); J32.9 Chronic sinusitis, unspecified; J44.9 Chronic obstructive pulmonary disease, unspecified; F33.9 Major depressive disorder, recurrent, unspecified; F41.9 Anxiety disorder, unspecified; G47.33 Obstructive sleep apnea (adult) (pediatric); K21.9 Gastro-esophageal reflux disease without esophagitis; Z99.89 Dependence on other enabling machines and devices; Z88.0 Allergy status to penicillin; F17.210 Nicotine dependence, cigarettes, uncomplicated

== ENCOUNTER 2019-08-22 11:15 | Emergency (ER) | payer SELFPAY ==
[~2019-08-22] VITALS: Ht 170.2 cm; Wt 56.8 kg
[~2019-08-22 11:15] MED LIST changes: +SM N0.65
--- NOTE | 2019-08-22 12:19 | REP ---
CT BRAIN WITHOUT CONTRAST: CT brain performed without IV contrast. Coronal reconstruction images are performed. Comparison is made April 2019. Ventricles are normal in size and position with no midline shift or mass effect. Victoria/white differentiation is well-maintained. There is no acute intracranial or extra-axial fluid collection. Bone window examination demonstrates a large left frontal sinus off osteoma unchanged since the prior exam. There is chronic opacification of right ethmoid air cells unchanged. IMPRESSION: Stable CT of the brain with no acute intracranial findings. Electronically Signed by Xavier Victoria MD 08/23/2019 01:30 P
[2019-08-22 12:25] LABS: BASO # 0.1 10^3/uL (0.0-0.2); BASO % 0.7 % (0.0-1.0); EOS # 0.1 10^3/uL (0.0-0.5); EOS % 0.9 % (0.0-3.0); HEMATOCRIT 39.8 % (42.0-52.0); HEMOGLOBIN 13.7 g/dl (13.5-17.5); LYMPH # 2.4 10^3/uL (1.5-5.0); MEAN CORPUSCULAR HEMOGLOBIN 31.5 pg (27.0-33.0); MEAN CORPUSCULAR HGB CONC 34.4 g/dl (32.0-36.5); MEAN CORPUSCULAR VOLUME 91.5 fl (80.0-96.0); MONO # 0.5 10^3/uL (0.0-0.8); MONO % 6.5 % (0.0-5.0); NEUTROPHILS # 3.9 10^3/uL (1.5-8.5); NEUTROPHILS % 56.8 % (36.0-66.0); PLATELET COUNT, AUTOMATED 303 10^3/uL (150-450); RED BLOOD COUNT 4.35 10^6/uL (4.30-6.10); WHITE BLOOD COUNT 6.9 10^3/uL (4.0-10.0)
[2019-08-22] MEDS ORDERED: NS 1,000 ML IV ONE ×2 (12:30→13:00)
[2019-08-22 12:58] LABS: ALBUMIN 3.8 GM/DL (3.2-5.2); ALT/SGPT 16 U/L (12-78); BILIRUBIN,DIRECT 0.1 MG/DL (0.0-0.2); BILIRUBIN,TOTAL 0.4 MG/DL (0.2-1.0); BLOOD UREA NITROGEN 10 MG/DL (7-18); CALCIUM LEVEL 9.2 MG/DL (8.5-10.1); CARBON DIOXIDE LEVEL 32 MEQ/L (21-32); CHLORIDE LEVEL 108 MEQ/L (98-107); CK-MB VALUE MASS < 1.0 NG/ML (<3.6); CPK CREATINE PHOSPHOKINASE 94 U/L (39-308); CREATININE FOR GFR 0.74 MG/DL (0.70-1.30); FREE T4 1.06 NG/DL (0.76-1.46); GLOMERULAR FILTRATION RATE > 60.0 (>60); GLUCOSE, FASTING 90 MG/DL (70-100); MAGNESIUM LEVEL 2.8 MG/DL (1.8-2.4); MB/CK RELATIVE INDEX 1.06 (< OR =4); POTASSIUM SERUM 3.8 MEQ/L (3.5-5.1); SODIUM LEVEL 140 MEQ/L (136-145); TOTAL PROTEIN 7.2 GM/DL (6.4-8.2); TROPONIN I < 0.02 NG/ML (< 0.10)
--- NOTE | 2019-08-22 12:59 | REP ---
Portable chest, 12:38 p.m., single AP view with the patient sitting: Comparison 03/29/2019. Lung elizondo are clear but hyperinflated, as previously. Cardiac size is normal. The shakila, mediastinum, skeletal structures are unremarkable. Impression: Chronic hyperinflation. No acute cardiopulmonary findings. Electronically Signed by Xavier Martin MD 08/22/2019 12:50 P
[2019-08-22] MEDS ORDERED: KETOROLAC 30 MG/ML VIAL (J1885) IV ONE (13:15)
[2019-08-22 16:32] VITALS: BP 136/85
--- NOTE | 2019-08-22 18:33 | ECGEPIP ---
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
== END 2019-08-22 16:38 | disposition home or self-care (01) ==
LOC: M ED 11:15
DX: I95.1 Orthostatic hypotension (principal); R55 Syncope and collapse; G47.33 Obstructive sleep apnea (adult) (pediatric); J44.9 Chronic obstructive pulmonary disease, unspecified; K21.9 Gastro-esophageal reflux disease without esophagitis; F41.9 Anxiety disorder, unspecified; F32.9 Major depressive disorder, single episode, unspecified; Z79.899 Other long term (current) drug therapy; Z88.0 Allergy status to penicillin
CPT/HCPCS: 70450; 71045; 80048; 80076; 82550; 82553; 83735; 84439; 84443; 84484; 85025; 93005; 93041; 94760; 96361; 96374; 99285; J1885

== ENCOUNTER → 2019-11-06 | Outpatient (CLI) | payer OTHER ==
[2019-11-06 14:15] LABS: BLOOD UREA NITROGEN 12 MG/DL (7-18); CALCIUM LEVEL 9.7 MG/DL (8.5-10.1); CARBON DIOXIDE LEVEL 30 MEQ/L (21-32); CHLORIDE LEVEL 104 MEQ/L (98-107); CREATININE FOR GFR 0.82 MG/DL (0.70-1.30); GLOMERULAR FILTRATION RATE > 60.0 (>60); GLUCOSE, FASTING 95 MG/DL (70-100); MAGNESIUM LEVEL 2.3 MG/DL (1.8-2.4); POTASSIUM SERUM 4.2 MEQ/L (3.5-5.1); SODIUM LEVEL 138 MEQ/L (136-145)
--- NOTE | 2019-11-07 03:05 | REP ---
Clinical: Chronic lower back pain . Technique: AP, lateral, bilateral oblique, flexion/extension and coned-down views. Findings: Alignment and lordosis is maintained. The vertebral bodies including transverse process and spinous processes are intact and normal. There is no evidence for acute fracture / compression injury or subluxation. No evidence for spondylolysis or spondylolisthesis. No significant degenerative change is noted. Impression: Normal age-appropriate lumbosacral spine radiograph series. Electronically Signed by Washington Subramanian MD 11/07/2019 02:57 A
--- NOTE | 2019-11-07 03:46 | REP ---
Clinical: Chronic neck pain. Technique: AP, lateral, flexion/extension, bilateral oblique and open mouth views of the cervical spine. Findings: Moderate degenerative disc osteophyte complex at C5-6 includes endplate sclerosis, early spurring, and disc space narrowing. Alignment and lordosis maintained. No acute fracture / compression injury or subluxation. Open mouth views demonstrate normal C1-C2 articulation and odontoid process. Oblique views demonstrate patent neural foramen. Impression: Focal moderate degenerative spondylosis at C5-6. Electronically Signed by Washington Subramanian MD 11/07/2019 03:36 A
== END ==
LOC: M LAB 13:24
PROVIDERS: ATTEND Physician Assistant
DX: M54.2 Cervicalgia (principal)

== ENCOUNTER → 2019-11-07 | Outpatient (REF) | payer OTHER ==
[2019-11-07 12:59] LABS: BASO # 0.1 10^3/uL (0.0-0.2); EOS # 0.2 10^3/uL (0.0-0.5); EOS % 1.8 % (0.0-3.0); HEMOGLOBIN 15.2 g/dl (13.5-17.5); LYMPH # 3.1 10^3/uL (1.5-5.0); LYMPH % 32.5 % (24.0-44.0); MEAN CORPUSCULAR HEMOGLOBIN 31.3 pg (27.0-33.0); MEAN CORPUSCULAR HGB CONC 33.8 g/dl (32.0-36.5); MEAN CORPUSCULAR VOLUME 92.6 fl (80.0-96.0); MONO # 0.6 10^3/uL (0.0-0.8); MONO % 6.4 % (0.0-5.0); NEUTROPHILS # 5.6 10^3/uL (1.5-8.5); PLATELET COUNT, AUTOMATED 330 10^3/uL (150-450); RED BLOOD COUNT 4.86 10^6/uL (4.30-6.10); WHITE BLOOD COUNT 9.6 10^3/uL (4.0-10.0)
[2019-11-07 13:44] LABS: ALBUMIN 3.9 GM/DL (3.2-5.2); ALT/SGPT 28 U/L (12-78); BILIRUBIN,TOTAL 0.2 MG/DL (0.2-1.0); BLOOD UREA NITROGEN 13 MG/DL (7-18); CALCIUM LEVEL 9.5 MG/DL (8.5-10.1); CARBON DIOXIDE LEVEL 29 MEQ/L (21-32); CHLORIDE LEVEL 108 MEQ/L (98-107); CHOLESTEROL LEVEL 213 MG/DL (<200); CHOLESTEROL RISK RATIO 4.733 (<5); FREE T4 0.96 NG/DL (0.76-1.46); GLOMERULAR FILTRATION RATE > 60.0 (>60); GLUCOSE, FASTING 103 MG/DL (70-100); HDL CHOLESTEROL 45 MG/DL (>40); LDL CHOLESTEROL 156 MG/DL (<100); NON-HDL-C 168 MG/DL; POTASSIUM SERUM 4.5 MEQ/L (3.5-5.1); SODIUM LEVEL 141 MEQ/L (136-145); TOTAL 25(OH) VITAMIN D 49.8 NG/ML (30.0-100.0); TOTAL PROTEIN 7.2 GM/DL (6.4-8.2); TRIGLYCERIDES LEVEL 62 MG/DL (<150); VITAMIN B12 LEVEL 350 PG/ML (247-911)
== END ==
LOC: M LAB REF 12:10
PROVIDERS: ATTEND Physician Assistant
DX: Z13.9 Encounter for screening, unspecified (principal); F17.210 Nicotine dependence, cigarettes, uncomplicated; E55.9 Vitamin D deficiency, unspecified; J01.41 Acute recurrent pansinusitis; Z68.1 Body mass index [BMI] 19.9 or less, adult; K02.63 Dental caries on smooth surface penetrating into pulp; M62.81 Muscle weakness (generalized); R09.81 Nasal congestion; M54.2 Cervicalgia; R51 Headache

== ENCOUNTER → 2020-04-16 | Outpatient (REF) | payer OTHER, MEDICAID ==
[~2020-04-16] MED LIST changes: +PANT40TA29; -PANT40TA3
[2020-04-16 17:35] LABS: ALBUMIN 3.8 GM/DL (3.2-5.2); ALT/SGPT 24 U/L (12-78); BILIRUBIN,TOTAL 0.3 MG/DL (0.2-1.0); BLOOD UREA NITROGEN 9 MG/DL (7-18); CALCIUM LEVEL 9.6 MG/DL (8.5-10.1); CARBON DIOXIDE LEVEL 28 MEQ/L (21-32); CHLORIDE LEVEL 106 MEQ/L (98-107); CHOLESTEROL LEVEL 183 MG/DL (<200); CHOLESTEROL RISK RATIO 3.519 (<5); CREATININE FOR GFR 0.89 MG/DL (0.70-1.30); GLOMERULAR FILTRATION RATE > 60.0 (>60); GLUCOSE, FASTING 116 MG/DL (70-100); HDL CHOLESTEROL 52 MG/DL (>40); LDL CHOLESTEROL 120 MG/DL (<100); NON-HDL-C 131 MG/DL; POTASSIUM SERUM 4.2 MEQ/L (3.5-5.1); SODIUM LEVEL 141 MEQ/L (136-145); TOTAL PROTEIN 7.2 GM/DL (6.4-8.2); TRIGLYCERIDES LEVEL 53 MG/DL (<150)
== END ==
LOC: M LAB REF 16:59
PROVIDERS: ATTEND Physician Assistant
DX: E78.00 Pure hypercholesterolemia, unspecified (principal); B35.1 Tinea unguium; B35.4 Tinea corporis

== ENCOUNTER 2020-10-01 09:01 | Emergency (ER) | payer MEDICAID, OTHER ==
[~2020-10-01] VITALS: Ht 172.7 cm; Wt 56.0 kg
[~2020-10-01 09:01] MED LIST changes: +NAPR-849 PO; -NAPR250T4 PO
[2020-10-01] MEDS ORDERED: ACETAMINOPHEN 500 MG TAB PO ONE (09:35)
[2020-10-01] MEDS ORDERED: LIDOCAINE 5% (LIDODERM) PATCH TD ONE (09:35)
--- NOTE | 2020-10-01 09:56 | REP ---
INDICATION: midline ttp and L upper trapezius ttp. COMPARISON: Comparison cervical spine radiographs November 06, 2019.. TECHNIQUE: Helical scanning is acquired and overlapping 2 mm high resolution axial images were generated and reviewed at bone and soft tissue window settings. Coronal and sagittal multiplanar re-formations images are generated. FINDINGS: There is no evidence of cervical spine element fracture. No skull base fracture is seen. Cervical vertebral body heights are preserved. Alignment is normal. Facet joints are normally aligned bilaterally at each cervical level on multiplanar re-formations images. There is no evidence of intraspinal or paraspinal hematoma. No extra vertebral abnormality is seen. There is degenerative disc disease at C5-6 with disc space narrowing, endplate sclerosis, and posterior osteophytic ridging as seen on the radiographs from 2020. There is a soft tissue ossicle posterior to the spinous process at C5 also unchanged from the radiographs. There is a minimal retrolisthesis at C5-6 unchanged from the radiographs, 1.4 mm. Coronal multiplanar re-formation images demonstrate a dextroconvex cervicothoracic curvature. IMPRESSION: Degenerative disc disease at C5-6 with 1.4 mm retrolisthesis at C5-6 and reactive sclerosis. Dextroconvex cervicothoracic curvature. No traumatic abnormality noted.. <Electronically signed by Filiberto Oh > 10/01/20 [id number]
[2020-10-01] MEDS ORDERED: LIDO5DIS41 TOP (10:23)
[2020-10-01 10:37] VITALS: BP 151/85
--- NOTE | 2020-10-01 14:08 | ED PDOC ---
Post-Departure Follow-Up starr ho and dr damon faxed formal report of ct c spine for fu Lo Angel MD Oct 01, 2020 14:08
[2020-10-01] MEDS ORDERED: **NOTE PATIENT COMMENT** MISC XX SCH (21:00)
== END 2020-10-01 10:37 | disposition home or self-care (01) ==
LOC: M ED 09:01
DX: M50.90 Cervical disc disorder, unspecified, unspecified cervical region (principal); S46.912A Strain of unspecified muscle, fascia and tendon at shoulder and upper arm level, left arm, initial encounter; X58.XXXA Exposure to other specified factors, initial encounter; Y92.89 Other specified places as the place of occurrence of the external cause; Y99.0 Civilian activity done for income or pay; J44.9 Chronic obstructive pulmonary disease, unspecified; F33.9 Major depressive disorder, recurrent, unspecified; F41.9 Anxiety disorder, unspecified; K21.9 Gastro-esophageal reflux disease without esophagitis; Z88.0 Allergy status to penicillin; F17.210 Nicotine dependence, cigarettes, uncomplicated

== ENCOUNTER 2021-02-02 03:54 | Emergency (ER) | payer OTHER ==
[~2021-02-02] VITALS: Ht 170.2 cm; Wt 55.6 kg
[~2021-02-02 03:54] MED LIST changes: +GABA-283 PO; -GABA-845 PO; +LIDO5DIS41 TOP
[2021-02-02 03:55] VITALS: BP 137/92
[2021-02-02] MEDS ORDERED: CLIN150C15 PO (17:33)
[2021-02-02] MEDS ORDERED: IBUP80TA PO (17:33)
== END 2021-02-02 05:44 | disposition left against medical advice (07) ==
LOC: M ED 03:54
DX: Z53.21 Procedure and treatment not carried out due to patient leaving prior to being seen by health care provider (principal)

== ENCOUNTER 2021-02-02 16:31 | Emergency (ER) | payer OTHER ==
[~2021-02-02] VITALS: Ht 170.2 cm; Wt 59.1 kg
[2021-02-02] MEDS ORDERED: IBUP80TA PO (17:33)
[2021-02-02] MEDS ORDERED: CLIN150C15 PO (17:33)
[2021-02-02 17:41] VITALS: BP 155/96
== END 2021-02-02 17:43 | disposition home or self-care (01) ==
LOC: M ED 16:31
DX: K02.9 Dental caries, unspecified (principal); K05.10 Chronic gingivitis, plaque induced; J44.9 Chronic obstructive pulmonary disease, unspecified; F33.9 Major depressive disorder, recurrent, unspecified; F41.9 Anxiety disorder, unspecified; G47.30 Sleep apnea, unspecified; Z86.73 Personal history of transient ischemic attack (TIA), and cerebral infarction without residual deficits; Z88.0 Allergy status to penicillin; F17.210 Nicotine dependence, cigarettes, uncomplicated

== ENCOUNTER 2021-06-14 14:38 | Emergency (ER) | payer OTHER ==
[~2021-06-14] VITALS: Ht 170.2 cm; Wt 57.1 kg
[2021-06-14 14:38] VITALS: BP 153/91
[~2021-06-14 14:38] MED LIST changes: +CLIN150C17 PO
[2021-06-14] MEDS ORDERED: LEVO500T3 (14:45)
--- OUTSIDE RECORDS SUMMARY | 2021-06-14 14:47 | CCD ---
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 Completed 01/08/2021 albuterol sulfate HFA 90 mcg/actuation aerosol inhaler Active Not available atorvastatin 10 mg tablet Completed 2019 atorvastatin 20 mg tablet Completed 2019 azelastine 137 mcg (0.1 %) nasal spray a erosol USE 1 SPRAY EACH NOSTRILTWO TIMES A DAY Completed 04/30/2021 azithromycin 250 mg tablet TAKE TWO TABLETS BY MOUTH ONCE DAILY FOR 1 DAY THEN TAKE ONE TABLET BY MOUTH ONCE DAILY FOR 4 DAYS Active Not available kbgthxvcru-smjlfosdjwacg-owikonik 50 mg- 300 mg-40 mg capsule TAKE 1 TABLET BY MOUTH THREE TIMES A DAY NEEDED FOR HEADACHE Completed 06/07/2020 cetirizine 10 mg tablet TAKE ONE TABLET BY MOUTH EVERY DAY Completed 08/26 ciclopirox 8 % topical solution APPLY LAYER TO AFFECTED NAILS DAILY FOR 7 DAYS REMOVE WITH RUBBING ALCOHOL AND REPEAT UNTIL SYMPTOMS ARE GONE Completed 0 clindamycin HCl 300 mg capsule Completed 1 cyclobenzaprine 10 mg tablet Active 04/30/2021 Not available doxycycline hyclate 100 mg capsule TAKE ONE CAPSULE BY MOUTH TWICE A DAY FOR 10 DAYS Completed 06/07/2020 doxycycline hyclate 100 mg tablet TAKE ONE TABLET BY MOUTH TWICE A DAY FOR 14 DAYS Completed 06/07/2020 fluticasone propionate 50 mcg/actuation nasal spray,suspension SPRAY 2 SPRAYS INTO EACH NOSTRIL EVERY DAY Active Not available ibuprofen 800 mg tablet Active Not avai lable levofloxacin 500 mg tablet Active Not a vailable levofloxacin 750 mg tablet TAKE ONE TABLET BY MOUTH EVERY DAY Completed 07/27 naltrexone 50 mg tablet TAKE ONE TABLET BY MOUTH EVERY DAY Completed 05/26 nicotine 21 mg/24 hr daily transdermal p atch APPLY ONE PATCH TO THE SKIN EVERY DAY Active N ot available Nicotrol 10 mg inhalation cartridge INHALE ONE PUFF BY MOUTH UP TO 16 TIMES DAILY Completed 06/07/2020 prednisone 10 mg tablet TAKE TWO TABLETS BY MOUTH ONCE DAILY FOR 5 DAYS Active Not available prednisone 20 mg tablet TAKE ONE TABLET BY MOUTH TWICE A DAY FOR 5 DAYS Completed 08/21/2020 terbinafine HCl 250 mg tablet TAKE 1 TABLET BY MOUTH DAILY Completed 06/07/2020 Vitamin D2 1,250 mcg (50,000 unit) capsu le TAKE ONE CAPSULE BY MOUTH ONCE WEEKLY Completed 08/07/2019 Problems Name Status Onset Date Source Dental Caries on Smooth Surface Penetrating into Pulp Unknown 07/10/2019 History Vitamin D Deficiency Active 10/05/2019 History Finding of Body Mass Index Active 10/05/2019 Histo ry Clinical Finding Unknown 10/05/2019 History Tobacco Dependence Caused by Cigarettes Active 10/05/19 History Neck Pain Active 10/26/2019 History Low Back Pain Active 10/26/2019 History Muscle Weakness Active 10/26/2019 History Smooth Type IIa Hyperlipoproteinemia Active 2019 History Acquired Absence of Multiple Teeth Unknown 11/24/2019 History Nicotine Dependence Active 03/08/2020 History Onychomycosis Active 03/19/2020 History Tinea Corporis Active 03/19/2020 History Episodic Tension-type Headache Active 03/19/2020 H istory Backache Active 08/21/2020 Restless Legs Active 04/30/2021 Nasal Congestion Active 04/30/2021 Procedures Date Name Performed by 08/21/2020 XR, Thoracic Spine, 2 View [facility] Radiology Dept [address] [place] [id number] (Work Place) 08/21/2020 XR, Lumbosacral Spine, 2 or 3 View [facility] Radiology Dept [address] [place] [phone] (Work Place) 08/21/2020 XR, Cervical Spine [facility] Radiol [address] [phone] (Work Place) Results Lab Results None recorded. Past Encounters 06/13/2021 Nasal Congestion; Exposure to SARS-CoV-2 Michael Pedersen, RPA-C: [address], [address], [place] [address], Ph. 06/12/2021 Acute Maxillary Sinusitis Michael Pedersen, RPA-C: [address], [address], [place] [address], Ph. 06/10/2021 Michael Pedersen, RPA-C: [address], [address], [place] [address], Ph. 04/30/2021 Adult Health Examination; Screening for Malignant Neoplasm of Colon; Smooth Type IIa Hyperlipoproteinemia; Vitamin D Deficiency; Tobacco Dependence Caused by Cigarettes; Nasal Congestion; Neck Pain; Counseling; Active or Passive Immunization Michael Pedersen, RPA-C: [address], [address], [place] [address], Ph. 01/08/2021 Degeneration of Cervical Intervertebral Disc; Chronic Sinusitis; Tobacco Dependence Caused by Cigarettes Michael Pedersen, RPA-C: [address], [address], [place] [address], Ph. 10/09/2020 Justo Gagnon MD: [address], [address], [place] [address], Ph. 09/05/2020 Acute Maxillary Sinusitis; Antibiotic Therapy Indicated Paty Corona PA-C: [address], [address], [place] [address], Ph. 08/21/2020 Backache Justo Gagnon MD: [address], [address], [place] [address], Ph. 06/07/2020 Acute Maxillary Sinusitis Michael Pedersen, RPA-C: [address] [facility], [facility] [address], [place] [address], Ph. Social History Tobacco Smoking Status Light Tobacco Smoker (1/4 pack per da y) Vaccine List Vaccine Type COVID-19, mRNA, LNP-S, PF, 100 mcg/0.5 m L dose (Moderna) 04/22/2021 Tdap .5 mL Plan of Care Reminders Provider Appointments None recorded. Lab None recorded. Referral None recorded. Procedures None recorded. Surgeries None recorded. Imaging None recorded. Vitals 06/12/2021 11:20AM TELEHEALTH 20 Height Weight BMI 67 in 125 lbs 19.6 kg/m2 04/30/2021 01:00PM ANNUAL EXAM Height Weight BMI Blood Pressure 67 in 123 lbs 12.8 oz 19.4 kg/m2 133/88 mm[H g] 01/08/2021 01:40PM ESTABLISHED [id number] Height Weight BMI Blood Pressure 67 in 118 lbs 18.5 kg/m2 131/82 mm[Hg] 09/05/2020 10:50AM SAME DAY 20 Height Weight BMI Blood Pressure 67 in 127 lbs 12.8 oz 20 kg/m2 127/87 mm[H g] 08/21/2020 11:00AM ESTABLISHED [id number] Height Weight BMI Blood Pressure 67 in 122 lbs 12.8 oz 19.2 kg/m2 135/87 mm[H g] 06/07/2020 10:50AM ESTABLISHED [id number] Height Weight BMI Blood Pressure 67 in 120 lbs 6.4 oz 18.9 kg/m2 127/81 mm[Hg ] 03/19/2020 Height Weight BMI Blood Pressure 67 in 120 lbs 3.2 oz 18.89 kg/m2 122/73 mm[Hg ] 03/08/2020 Height Weight BMI Blood Pressure 67 in 120 lbs 6.08 oz 18.92 kg/m2 115/74 mm[H g] 11/23/2019 Height Weight BMI Blood Pressure 67 in 121 lbs 19.02 kg/m2 123/79 mm[Hg] 11/13/2019 Height Weight BMI Blood Pressure 67 in 125 lbs 19.65 kg/m2 129/77 mm[Hg] 10/26/2019 Height Weight BMI Blood Pressure 67 in 124 lbs 2.08 oz 19.51 kg/m2 139/92 mm[H g] 10/05/2019 Height Weight BMI Blood Pressure 67 in 121 lbs 19.02 kg/m2 131/82 mm[Hg]
--- OUTSIDE RECORDS SUMMARY | 2021-06-14 14:47 | CCD ---
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 [address], [place] [phone] (Work Place) 08/21/2020 XR, Cervical Spine [facility] Radiol ogy Dept [address] [place] [phone] (Work Place) Results Lab Results None recorded. Past Encounters 04/30/2021 Adult Health Examination; Screening for Malignant Neoplasm of Colon; Smooth Type IIa Hyperlipoproteinemia; Vitamin D Deficiency; Tobacco Dependence Caused by Cigarettes; Nasal Congestion; Neck Pain; Counseling; Active or Passive Immunization ELIZ Adams: [address], [facility] [address], [place] [address], Ph. 01/08/2021 Degeneration of Cervical Intervertebral Disc; Chronic Sinusitis; Tobacco Dependence Caused by Cigarettes CHIKA AdamsC: [address], [address], [place] [address], Ph. 10/09/2020 Justo Gagnon MD: [address], [facility] [address], [place] [address], Ph. 09/05/2020 Acute Maxillary Sinusitis; Antibiotic Therapy Indicated Paty Corona PA-C: [address], [place] [address], Ph. 08/21/2020 Backache Justo Gagnon MD: [address] , [facility] [address], [place] [address], Ph. 06/07/2020 Acute Maxillary Sinusitis CHIKA AdamsC: [address] , [facility] [address], [place] [address], Ph. Social History Tobacco Smoking Status Heavy Tobacco Smoker (2 packs per a d ay) Vaccine List Vaccine Type COVID-19, mRNA, LNP-S, PF, 100 mcg/0.5 m L dose 04/22/2021 Tdap .5 mL Plan of Care Reminders Provider Appointments None recorded. Lab None recorded. Referral None recorded. Procedures None recorded. Surgeries None recorded. Imaging None recorded. Vitals 04/30/2021 01:00PM ANNUAL EXAM Height Weight BMI Blood Pressure 67 in 123 lbs 12.8 oz 19.4 kg/m2 133/88 mm[H g] 01/08/2021 01:40PM ESTABLISHED [id number] Height Weight BMI Blood Pressure 67 in 118 lbs 18.5 kg/m2 131/82 mm[Hg] 09/05/2020 10:50AM SAME DAY 20 Height Weight BMI Blood Pressure 67 in 127 lbs 12.8 oz 20 kg/m2 127/87 mm[H g] 08/21/2020 11:00AM ESTABLISHED [id number] Height Weight BMI Blood Pressure 67 in 122 lbs 12.8 oz 19.2 kg/m2 135/87 mm[H g] 06/07/2020 10:50AM ESTABLISHED [id number] Height Weight BMI Blood Pressure 67 in [...]
--- OUTSIDE RECORDS SUMMARY | 2021-06-14 14:47 | CCD ---
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 Active Not available levofloxacin 750 mg tablet TAKE ONE TABLET [...] by 08/21/2020 XR, Thoracic Spine, 2 View [facility] Radiology Dept [address] [place] [phone] (Work Place) 08/21/2020 XR, Lumbosacral Spine, 2 or 3 View [facility] Radiology Dept [address] [place] [phone] (Work Place) 08/21/2020 XR, Cervical Spine [facility] Radiol ogy Dept [address] [place] [phone] (Work Place) Results Lab Results None recorded. Past Encounters 06/12/2021 Acute Maxillary Sinusitis Michael PedersenSG-C: [address] , [facility] [address], [place] [address], Ph. 06/10/2021 Michael Yang Pedersen RPA-C: [address], [address], [place] [address], Ph. 04/30/2021 Adult Health Examination; Screening for Malignant Neoplasm of Colon; Smooth Type IIa Hyperlipoproteinemia; Vitamin D Deficiency; Tobacco Dependence Caused by Cigarettes; Nasal Congestion; Neck Pain; Counseling; Active or Passive Immunization Michaelrodrigo Pedersen RPA-C: [address] [facility], [facility] [address], [place] [address], Ph. 01/08/2021 Degeneration of Cervical Intervertebral Disc; Chronic Sinusitis; Tobacco Dependence Caused by Cigarettes Michael D Slava RPA-C: [address] , [address], [place] [address], Ph. 10/09/2020 Justo Gagnon MD: [address] , [facility] [address], [place] [address], Ph. 09/05/2020 Acute Maxillary Sinusitis; Antibiotic Therapy Indicated Paty Corona PA-C: [address], [address], [place] [address], Ph. 08/21/2020 Backache Justo Gagnon MD: [address], [address], [place] [address], Ph. 06/07/2020 Acute Maxillary Sinusitis Michael D Slava RPA-C: [address], [address], [place] [address], Ph. Social History Tobacco Smoking Status Light [...] kg/m2 133/88 mm[H g] 01/08/2021 01:40PM ESTABLISHED [id number] Height Weight BMI Blood Pressure 67 in 118 lbs 18.5 kg/m2 131/82 mm[Hg] 09/05/2020 10:50AM SAME DAY 20 Height Weight BMI Blood Pressure 67 in 127 lbs 12.8 oz 20 kg/m2 127/87 mm[H g] 08/21/2020 11:00AM ESTABLISHED [id number] Height Weight BMI Blood Pressure 67 in 122 lbs 12.8 oz 19.2 kg/m2 135/87 mm[H g] 06/07/2020 10:50AM ESTABLISHED [id number] Height Weight BMI Blood Pressure 67 in [...]
--- OUTSIDE RECORDS SUMMARY | 2021-06-14 14:48 | CCD ---
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 Driver Name Role Phone Celia Gagnon MD Unavailable Unavailable Celia Gagnon MD Unavailable Unavailable Celia Gagnon MD Unavailable Unavailable Celia Gagnon MD Unavailable Unavailable Celia Gagnon MD Unavailable Unavailable Celia Gagnon MD Unavailable Unavailable Celia Gagnon MD Unavailable Unavailable Celia Gagnon MD Unavailable Unavailable Celia Gagnon MD Unavailable Unavailable Celia Gagnon MD Unavailable Unavailable Celia Gagnon MD Unavailable Unavailable Celia Gagnon MD Unavailable Unavailable Celia Gagnon MD Unavailable Unavailable Celia Gagnon MD Unavailable Unavailable Celia Gagnon MD Unavailable Unavailable Celia Gagnon MD Unavailable Unavailable Celia Gagnno MD Unavailable Unavailable Celia Gagnon MD Unavailable Unavailable Celia Gagnon MD Unavailable Unavailable Celia Gagnon MD Unavailable Unavailable Celia Gagnon MD Unavailable Unavailable Celia Gagnon MD Unavailable Unavailable Celia Gagnon MD Unavailable Unavailable Celia Gagnon MD Unavailable Unavailable Celia Gagnon MD Unavailable Unavailable Celia Gagnon MD Unavailable Unavailable Celia Gagnon MD Unavailable Unavailable Celia Gagnon MD Unavailable Unavailable Celia Gagnon MD Unavailable Unavailable Celia Gagnon MD Unavailable Unavailable Celia Gagnon MD Unavailable Unavailable Celia Gagnon MD Unavailable Unavailable Celia Gagnon MD Unavailable Unavailable Celia Gagnon MD Unavailable Unavailable Celia Gagnon MD Unavailable Unavailable Celia Gagnon MD Unavailable Unavailable Celia Gagnon MD Unavailable Unavailable Celia Gagnon MD Unavailable Unavailable Celia Gagnon MD Unavailable Unavailable Celia Gagnon MD Unavailable Unavailable Celia Gagnon MD Unavailable Unavailable Celia Gagnon MD Unavailable Unavailable Celia Gagnon MD Unavailable Unavailable Celia Gagnon MD Unavailable Unavailable Celia Gagnon MD Unavailable Unavailable Celia Gagnon MD Unavailable Unavailable Celia Gagnon MD Unavailable Unavailable Celia Gagnon MD Unavailable Unavailable Celia Gagnon MD Unavailable Unavailable Celia Gagnon MD Unavailable Unavailable Celia Gagnon MD Unavailable Unavailable Celia Gagnon MD Unavailable Unavailable Celia Gagnon MD Unavailable Unavailable Celia Gagnon MD Unavailable Unavailable Celia Gagnon MD Unavailable Unavailable Celia Gagnon MD Unavailable Unavailable Celia Gagnon MD Unavailable Unavailable Celia Gagnon MD Unavailable Unavailable Celia Gagnon MD Unavailable Unavailable Celia Gagnon MD Unavailable Unavailable Celia Gagnon MD Unavailable Unavailable Celia Gagnon MD Unavailable Unavailable Celia Gagnon MD Unavailable Unavailable Celia Gagnon MD Unavailable Unavailable Celia Gagnon MD Unavailable Unavailable Celia Gagnno MD Unavailable Unavailable Celia Gagnon MD Unavailable Unavailable Celia Gagnon MD Unavailable Unavailable Celia Gagnon MD Unavailable Unavailable Celia Gagnon MD Unavailable Unavailable Celia Gagnon MD Unavailable Unavailable Celia Gagnon MD Unavailable Unavailable Celia Gagnon MD Unavailable Unavailable Celia Gagnon MD Unavailable Unavailable Celia Gagnon MD Unavailable Unavailable Celia Gagnon MD Unavailable Unavailable Celia Gagnon MD Unavailable Unavailable Celia Gagnon MD Unavailable Unavailable Celia Gagnon MD Unavailable Unavailable Celia Gagnon MD Unavailable Unavailable Celia Gagnon MD Unavailable Unavailable Celia Gagnon MD Unavailable Unavailable Celia Gagnon MD Unavailable Unavailable Celia Gagnon MD Unavailable Unavailable Celia Gagnon MD Unavailable Unavailable Gagnon, Celia Kemp MD Unavailable Unavailable Gagnon, Celia Kemp MD Unavailable Unavailable Gagnon, Celia Kemp MD Unavailable Unavailable Gagnon, Celia Kemp MD Unavailable Unavailable Gagnon, Celia Kemp MD Unavailable Unavailable Gagnon, Celia Kemp MD Unavailable Unavailable Gagnon, Celia Kemp MD Unavailable Unavailable Gagnon, Celia Kemp MD Unavailable Unavailable PEDERSEN, DALTON MICHAEL RPA-C Unavailable Unavailable PEDERSEN, DALTON MICHAEL RPA-C Unavailable Unavailable PEDERSEN, DALTON MICHAEL RPA-C Unavailable Unavailable PEDERSEN, DALTON MICHAEL RPA-C Unavailable Unavailable PEDERSEN, DALTON MICHAEL RPA-C Unavailable Unavailable PEDERSEN, DALTON MICHAEL RPA-C Unavailable Unavailable PEDERSEN, DALTON MICHAEL RPA-C Unavailable Unavailable PEDERSEN, DALTON MICHAEL RPA-C Unavailable Unavailable PEDERSEN, DALTON MICHAEL RPA-C Unavailable Unavailable PEDERSEN, DALTON MICHAEL RPA-C Unavailable Unavailable PEDERSEN, DALTON MICHAEL RPA-C Unavailable Unavailable PEDERSEN, DALTON MICHAEL RPA-C Unavailable Unavailable PEDERSEN, DALTON MICHAEL RPA-C Unavailable Unavailable PEDERSEN, DALTON MICHAEL RPA-C Unavailable Unavailable PEDERSEN, DALTON MICHAEL RPA-C Unavailable Unavailable PEDERSEN, DALTON MICHAEL RPA-C Unavailable Unavailable PEDERSEN, DALTON MICHAEL RPA-C Unavailable Unavailable PEDERSEN, DALTON MICHAEL RPA-C Unavailable Unavailable PEDERSEN, DALTON MICHAEL RPA-C Unavailable Unavailable PEDERSEN, DALTON MICHAEL RPA-C Unavailable Unavailable PEDERSEN, DALTON MICHAEL RPA-C Unavailable Unavailable PEDERSEN, DALTON MICHAEL RPA-C Unavailable Unavailable PEDERSEN, DALTON MICHAEL RPA-C Unavailable Unavailable PEDERSEN, DALTON MICHAEL RPA-C Unavailable Unavailable PEDERSEN, DALTON MICHAEL RPA-C Unavailable Unavailable PEDERSEN, DALTON MICHAEL RPA-C Unavailable Unavailable PEDERSEN, DALTON MICHAEL RPA-C Unavailable Unavailable PEDERSEN, DALTON MICHAEL RPA-C Unavailable Unavailable PEDERSEN, DALTON MICHAEL RPA-C Unavailable Unavailable PEDERSEN, DALTON MICHAEL RPA-C Unavailable Unavailable PEDERSEN, DALTON MICHAEL RPA-C Unavailable Unavailable PEDERSEN, DALTON MICHAEL RPA-C Unavailable Unavailable PEDERSEN, DALTON MICHAEL RPA-C Unavailable Unavailable PEDERSEN, DALTON MICHAEL RPA-C Unavailable Unavailable PEDERSEN, DALTON MICHAEL RPA-C Unavailable Unavailable PEDERSEN, DALTON MICHAEL RPA-C Unavailable Unavailable PEDERSEN, DALTON MICHAEL RPA-C Unavailable Unavailable PEDERSEN, DALTON MICHAEL RPA-C Unavailable Unavailable PEDERSEN, DALTON MICHAEL RPA-C Unavailable Unavailable PEDERSEN, DALTON MICHAEL RPA-C Unavailable Unavailable PEDERSEN, DALTON MICHAEL RPA-C Unavailable Unavailable PEDERSEN, DALTON MICHAEL RPA-C Unavailable Unavailable PEDERSEN, DALTON MICHAEL RPA-C Unavailable Unavailable PEDERSEN, DATLON MICHAEL RPA-C Unavailable Unavailable PEDERSEN, DALTON MICHAEL RPA-C Unavailable Unavailable PEDERSEN, DALTON MICHAEL RPA-C Unavailable Unavailable PEDERSEN, DALTON MICHAEL RPA-C Unavailable Unavailable PEDERSEN, DALTON MICHAEL RPA-C Unavailable Unavailable PEDERSEN, DALTON MICHAEL RPA-C Unavailable Unavailable PEDERSEN, DALTON MICHAEL RPA-C Unavailable Unavailable PEDERSEN, DALTON MICHAEL RPA-C Unavailable Unavailable PEDERSEN, DALTON MICHAEL RPA-C Unavailable Unavailable PEDERSEN, DALTON MICHAEL RPA-C Unavailable Unavailable PEDERSEN, DALTON MICHAEL RPA-C Unavailable Unavailable PEDERSEN, DALTON MICHAEL RPA-C Unavailable Unavailable PEDERSEN, DALTON MICHAEL RPA-C Unavailable Unavailable PEDERSEN, DALTON MICHAEL RPA-C Unavailable Unavailable PEDERSEN, DALTON MICHAEL RPA-C Unavailable Unavailable PEDERSEN, DALTON MICHAEL RPA-C Unavailable Unavailable PEDERSEN, DALTON MICHAEL RPA-C Unavailable Unavailable PEDERSEN, DALTON MICHAEL RPA-C Unavailable Unavailable PEDERSEN, DALTON MICHAEL RPA-C Unavailable Unavailable PEDERSEN, DALTON MICHAEL RPA-C Unavailable Unavailable PEDERSEN, DALTON MICHAEL RPA-C Unavailable Unavailable PEDERSEN, DALTON MICHAEL RPA-C Unavailable Unavailable PEDERSEN, DLATON MICHAEL RPA-C Unavailable Unavailable PEDERSEN, DALTON MICHAEL RPA-C Unavailable Unavailable PEDERSEN, DALTON MICHAEL RPA-C Unavailable Unavailable PEDERSEN, DALTON MICHAEL RPA-C Unavailable Unavailable PEDERSEN, DALTON MICHAEL RPA-C Unavailable Unavailable PEDERSEN, DALTON MICHAEL RPA-C Unavailable Unavailable PEDERSEN, DALTON MICHAEL RPA-C Unavailable Unavailable PEDERSEN, DALTON MICHAEL RPA-C Unavailable Unavailable PEDERSEN, DALTON MICHAEL RPA-C Unavailable Unavailable PEDERSEN, DALTON MICHAEL RPA-C Unavailable Unavailable PEDERSEN, DALTON MICHAEL RPA-C Unavailable Unavailable PEDERSEN, DALTON MICHAEL RPA-C Unavailable Unavailable PEDERSEN, DALTON MICHAEL RPA-C Unavailable Unavailable PEDERSEN, DALTON MICHAEL RPA-C Unavailable Unavailable PEDERSEN, DALTON MICHAEL RPA-C Unavailable Unavailable PEDERSEN, DALTON MICHAEL RPA-C Unavailable Unavailable PEDERSEN, DALTON MICHAEL RPA-C Unavailable Unavailable PEDERSEN, DALTON MICHAEL RPA-C Unavailable Unavailable PEDERSEN, DALTON MICHAEL RPA-C Unavailable Unavailable PEDERSEN, DALTON MICHAEL RPA-C Unavailable Unavailable PEDERSEN, DALTON MICHAEL RPA-C Unavailable Unavailable Scordo, M Paty PA Unavailable Unavailable Scordo, M Paty PA Unavailable Unavailable Scordo, M Paty PA Unavailable Unavailable Scordo, M Paty PA Unavailable Unavailable Scordo, M Paty PA Unavailable Unavailable Scordo, M Paty PA Unavailable Unavailable Scordo, M Paty PA Unavailable Unavailable Scordo, M Paty PA Unavailable Unavailable Scordo, M Paty PA Unavailable Unavailable Scordo, M Paty PA Unavailable Unavailable Scordo, M Paty PA Unavailable Unavailable Scordo, M Paty PA Unavailable Unavailable Scordo, M Paty PA Unavailable Unavailable Scordo, M Paty PA Unavailable Unavailable Scordo, M Paty PA Unavailable Unavailable Scordo, M Paty PA Unavailable Unavailable Scordo, M Paty PA Unavailable Unavailable Scordo, M Paty PA Unavailable Unavailable Scordo, M Paty PA Unavailable Unavailable Scordo, M Paty PA Unavailable Unavailable Scordo, M Paty PA Unavailable Unavailable Scordo, M Paty PA Unavailable Unavailable Scordo, M Paty PA Unavailable Unavailable Scordo, M Paty PA Unavailable Unavailable Scordo, M Paty PA Unavailable Unavailable Scordo, M Paty PA Unavailable Unavailable Scordo, M Paty PA Unavailable Unavailable Scordo, M Paty PA Unavailable Unavailable Scordo, M Paty PA Unavailable Unavailable Scordo, M Paty PA Unavailable Unavailable Scordo, M Paty PA Unavailable Unavailable Scordo, M Paty PA Unavailable Unavailable Scordo, M Paty PA Unavailable Unavailable Scordo, M Paty PA Unavailable Unavailable Scordo, M Paty PA Unavailable Unavailable Scordo, M Paty PA Unavailable Unavailable Scordo, M Paty PA Unavailable Unavailable Scordo, M Paty PA Unavailable Unavailable Scordo, M Paty PA Unavailable Unavailable Scordo, M Paty PA Unavailable Unavailable Scordo, M Paty PA Unavailable Unavailable Scordo, M Paty PA Unavailable Unavailable Scordo, Robb Mabryby PA Unavailable Unavailable Scordo, Robb Mabryby PA Unavailable Unavailable Scordo, Robb Mabryby PA Unavailable Unavailable Scordo, M Paty PA Unavailable Unavailable Scordo, Robb Mabryby PA Unavailable Unavailable Re-disclosure Warning The records that you are about to access may contain information from federally-assisted alcohol or drug abuse programs. If such information is present, then the following federally mandated warning applies: This information has been disclosed to you from records protected by federal confidentiality rules (42 CFR part 2). The federal rules prohibit you from making any further disclosure of this information unless further disclosure is expressly permitted by the written consent of the person to whom it pertains or as otherwise permitted by 42 CFR part 2. A general authorization for the release of medical or other information is NOT sufficient for this purpose. The Federal rules restrict any use of the information to criminally investigate or prosecute any alcohol or drug abuse patient.The records that you are about to access may contain highly sensitive health information, the redisclosure of which is protected by Article 27-F of the [facility] Public Health law. If you continue you may have access to information: Regarding HIV / AIDS; Provided by facilities licensed or operated by the [facility] Office of Mental Health; or Provided by the [facility] Office for People With Developmental Disabilities. If such information is present, then the following [facility] mandated warning applies: This information has been disclosed to you from confidential records which are protected by state law. State law prohibits you from making any further disclosure of this information without the specific written consent of the person to whom it pertains, or as otherwise permitted by law. Any unauthorized further disclosure in violation of state law may result in a fine or usp sentence or both. A general authorization for the release of medical or other information is NOT sufficient authorization for further disc losure. Allergies and Adverse Reactions Type Description Substance Reaction Status Data Source(s ) Allergy to substance Allergy to substance Nicotine [facility] ([facility]) Allergy to substance Allergy to substance Nicotine [facility] ([facility]) Allergy to substance Allergy to substance Nicotine [facility] ([facility]) Allergy to substance Allergy to substance Nicotine [facility] ([facility]) Family History Family Member Name Family Member Gender Family Member Status Date o f Status Description Data Source(s) Unknown Unknown Problem MEDENT ([facility]) Unknown Unknown Problem MEDENT ([facility]) mother Unknown Unknown Problem MEDENT (Josue Patel MD, ) Encounters Encounter Providers Location Date Indications Data Source(s ) Michael Pedersen RPA-C: [address], [place] [address], Ph. Attender: MICHAEL PEDERSEN RPA-C [facility] Medical 06/13/2021 12:00:00 AM EST [facility] ([facility]) Michael Pedersen RPA-C: [address], [place] [address], Ph. Attender: MICHAEL FARRC [facility] Medical 06/12/2021 12:00:00 AM EST [facility] ([facility]) Michael Pedersen RPA-C: [address], [place] [address], Ph. Attender: MICHAEL FARRC [facility] Medical 06/12/2021 12:00:00 AM EST [facility] ([facility]) Michael Pedersen RPA-C: [address], [place] [address], Ph. Attender: MICHAEL PEDERSEN RPA-C [facility] Medical 06/10/2021 12:00:00 AM EST [facility] ([facility]) Michael Pedersen RPA-C: [address], [place] [address], Ph. Attender: MICHAEL PEDERSEN RPA-C [facility] Medical 06/10/2021 12:00:00 AM EST [facility] ([facility]) Michael Pedersen, RPA-C: [address], [place] [address], Ph. Attender: MICHAEL PEDERSEN RPA-C [facility] Medical 04/30/2021 12:00:00 AM EDT [facility] ([facility]) Michael Pedersen, RPA-C: [address], [place] [address], Ph. Attender: MICHAEL PEDERSEN RPA-C [facility] Medical 04/30/2021 12:00:00 AM EDT [facility] ([facility]) Michael Pedersen, RPA-C: [address], [place] [address], Ph. Attender: MICHAEL PEDERSEN RPA-C [facility] Medical 04/30/2021 12:00:00 AM EDT [facility] ([facility]) Michael Pedersen, RPA-C: [address], [place] [address], Ph. Attender: MICHAEL PEDERSEN RPA-C [facility] Medical 01/08/2021 12:00:00 AM EDT [facility] ([facility]) Michael Pedersen, RPA-C: [address], [place] [address], Ph. Attender: MICHAEL PEDERSEN RPA-C [facility] Medical 01/08/2021 12:00:00 AM EDT [facility] ([facility]) Michael Pedersen, RPA-C: [address], [place] [address], Ph. Attender: MICHAEL PEDERSEN RPA-C [facility] Medical 01/08/2021 12:00:00 AM EDT [facility] ([facility]) CHIKA AdamsC: [address], [place] [address], Ph. Attender: MICHAEL PEDERSEN RPA-C [facility] Medical 01/08/2021 12:00:00 AM EDT [facility] ([facility]) Justo Gagnon MD: [address], [address], [place] [address], Ph. Attender: Justo Gagnon MD [facility] Medical 10/09/2020 12:00:00 AM EDT [facility] ([facility]) Justo Gagnon MD: [address], [address], [place] [address], Ph. Attender: Justo Gagnon MD [facility] Medical 10/09/2020 12:00:00 AM EDT [facility] ([facility]) Justo Gagnon MD: [address], [address], [place] [address], Ph. Attender: Justo Gagnon MD [facility] Medical 10/09/2020 12:00:00 AM EDT [facility] ([facility]) Justo Gagnon MD: [address], [address], [place] [address], Ph. Attender: Justo Gagnon MD [facility] Medical 10/09/2020 12:00:00 AM EDT [facility] ([facility]) Justo Gagnon MD: [address], [address], [place] [address], Ph. Attender: Justo Gagnon MD [facility] Medical 10/09/2020 12:00:00 AM EDT [facility] ([facility]) Outpatient 10/01/2020 08:01:06 AM EST - 021 08:11:44 AM EST [facility] ([facility]) Paty Corona PA-C: [address], [place] [address], Ph. Attender: Paty MALHOTRA [facility] Medical 09/05/2020 12:00:00 AM EST [facility] ([facility]) Paty Corona PA-C: [address], [place] [address], Ph. Attender: Paty MALHOTRA [facility] Medical 09/05/2020 12:00:00 AM EST [facility] ([facility]) Paty Corona PA-C: [address], [place] [address], Ph. Attender: Paty MALHOTRA [facility] Medical 09/05/2020 12:00:00 AM EST [facility] ([facility]) Paty Corona PA-C: [address], [place] [address], Ph. Attender: Paty MALHOTRA [facility] Medical 09/05/2020 12:00:00 AM EST [facility] ([facility]) Paty Corona PA-C: [address], [place] [address], Ph. Attender: Paty MALHOTRA [facility] Medical 09/05/2020 12:00:00 AM EST [facility] ([facility]) Paty Corona PA-C: [address], [place] [address], Ph. Attender: Paty MALHOTRA [facility] Medical 09/05/2020 12:00:00 AM EST [facility] ([facility]) Justo Gagnon MD: [address], [address], [place] [address], Ph. Attender: Justo Gagnon MD [facility] Medical 08/21/2020 12:00:00 AM EST [facility] ([facility]) Justo Gagnon MD: [address], [address], [place] [address], Ph. Attender: Justo Gagnon MD [facility] Medical 08/21/2020 12:00:00 AM EST [facility] ([facility]) Justo Gagnon MD: [address], [address], [place] [address], Ph. Attender: Justo Gagnon MD [facility] Medical 08/21/2020 12:00:00 AM EST [facility] ([facility]) Justo Gagnon MD: [address], [address], [place] [address], Ph. Attender: Justo Gagnon MD [facility] Medical 08/21/2020 12:00:00 AM EST [facility] ([facility]) Justo Gagnon MD: [address], [address], [place] [address], Ph. Attender: Justo Gagnon MD [facility] Medical 08/21/2020 12:00:00 AM EST [facility] ([facility]) Justo Gagnon MD: [address], [address], [place] [address], Ph. Attender: Justo Gagnon MD [facility] Medical 08/21/2020 12:00:00 AM EST [facility] ([facility]) Michael Pedersen RPA-C: [address], [place] [address], Ph. Attender: MICHAEL PEDERSEN RPA-C [facility] Medical 06/07/2020 12:00:00 AM EST [facility] ([facility]) Michael Pedersen, RPA-C: [address], [place] [address], Ph. Attender: MICHAEL PEDERSEN RPA-C [facility] Medical 06/07/2020 12:00:00 AM EST [facility] ([facility]) Michael Pedersen RPA-C: [address], [place] [address], Ph. Attender: MICHAEL PEDERSEN RPA-C [facility] Medical 06/07/2020 12:00:00 AM EST [facility] ([facility]) Michael Pedersen RPA-C: [address], [place] [address], Ph. Attender: MICHAEL PEDERSEN RPA-C [facility] Medical 06/07/2020 12:00:00 AM EST [facility] ([facility]) Michael Pedersen, RPA-C: [address], [address], [place] [address], Ph. Attender: MICHAEL PEDERSEN RPA-C [facility] Medical 06/07/2020 12:00:00 AM EST [facility] ([facility]) Michael Pedersen RPA-C: [address], [place] [address], Ph. Attender: MICHAEL PEDERSEN RPA-C [facility] Medical 06/07/2020 12:00:00 AM YEN ASH[place] ([facility]) Michael Pedersen, RPA-C: [address], [place] [address], Ph. Attender: MICHAEL PEDERSEN RPA-C [facility] Medical 06/07/2020 12:00:00 AM YEN ASHLEY ([facility]) Outpatient Attender: MICHAEL PEDERSEN RPA-C [facility] 05/08/2020 09:09:02 AM EDT [facility] Outpatient Attender: MICHAEL PEDERSEN RPA-C [facility] 05/08/2020 09:09:02 AM EDT [facility] Outpatient Attender: MICHAEL PEDERSEN RPA-C [facility] 04/25/2020 04:11:02 PM EDT [facility] Outpatient Attender: MICHAEL PEDERSEN RPA-C [facility] 04/25/2020 04:11:00 PM EDT [facility] Outpatient Attender: MICHAEL PEDERSEN RPA-C [facility] 04/23/2020 02:21:03 PM EDT [facility] Outpatient Attender: MICHAEL PEDERSEN RPA-C C 04/16/2020 12:08:59 PM EDT [facility] Immunizations Vaccine Date Status Description Data Source(s) Tdap 04/30/2021 01:54:00 PM EDT completed 04/30/2021 0.5 mL [facility] ([facility]) Tdap 04/30/2021 01:54:00 PM EDT completed 04/30/2021 0.5 mL [facility] ([facility]) Tdap 04/30/2021 01:54:00 PM EDT completed 04/30/2021 0.5 mL [facility] ([facility]) COVID-19, mRNA, LNP-S, PF, 100 mcg/0.5 mL dose (Modern a) 04/22/2021 12:00:00 AM EDT completed 04/22/2021 [place] ([facility]) COVID-19, mRNA, LNP-S, PF, 100 mcg/0.5 mL dose (Modern a) 04/22/2021 12:00:00 AM EDT completed 04/22/2021 [place] ([facility]) COVID-19, mRNA, LNP-S, PF, 100 mcg/0.5 mL dose 04/22/2021 12 :00:00 AM EDT completed 04/22/2021 [place] ([facility]) COVID-19 VACCINE Moderna 04/22/2021 12:00:00 AM EDT completed [facility] Vaccine Series Complete: NOThis Data was Submitted to [facility] Via [employer]. Medications Medication Brand Name Start Date Product Form Dose Route Admi nistrative Instructions Pharmacy Instructions Status Indications Reaction Description Data Source(s) Cyclobenzaprine hydrochloride 10 MG Oral Tablet cyclob enzaprine 10 mg tablet cyclobenzaprine 10 mg tablet 04/30/2021 12:00:00 AM EDT completed cyclobenzaprine hydrochloride 10 MG Oral Tablet [facility]) Cyclobenzaprine hydrochloride 10 MG Oral Tablet cyclob enzaprine 10 mg tablet cyclobenzaprine 10 mg tablet 04/30/2021 12:00:00 AM EDT completed cyclobenzaprine hydrochloride 10 MG Oral Tablet [facility]) Cyclobenzaprine hydrochloride 10 MG Oral Tablet cyclob enzaprine 10 mg tablet cyclobenzaprine 10 mg tablet 04/30/2021 12:00:00 AM EDT completed cyclobenzaprine hydrochloride 10 MG Oral Tablet [facility]) atorvastatin 10 MG Oral Tablet atorvastatin 10 mg tabl et atorvastatin 10 mg tablet completed atorvastatin 10 MG Oral Tablet [facility]) Levofloxacin 750 MG Oral Tablet levoflox acin 750 mg tablet TAKE ONE TABLET BY MOUTH EVERY DAY levofloxacin 750 mg tablet TAKE ONE TABLET BY MOUTH EVERY DA Y completed levofloxacin 7 50 MG Oral Tablet [facility]) Clindamycin 300 MG Oral Capsule clindamycin HCl 300 mg capsule clindamycin HCl 300 mg capsule completed clindam ycin 300 MG Oral Capsule [facility]) Ergocalciferol 54503 UNT Oral Capsule Vi tamin D2 1,250 mcg (50,000 unit) capsule TAKE ONE CAPSULE BY MOUTH ONCE WEEKLY Vitamin D2 1,250 mcg (50,000 unit) capsu le TAKE ONE CAPSULE BY MOUTH ONCE WEEKLY completed ergocalciferol 1.25 MG Oral Capsule [facility] ([facility]) cetirizine hydrochloride 10 MG Oral Tabl et cetirizine 10 mg tablet TAKE ONE TABLET BY MOUTH EVERY DAY cetirizine 10 mg tablet TAKE ONE TABLET BY MOUTH EVERY DAY completed cetirizine hydro chloride 10 MG Oral Tablet [facility] ([facility]) doxycycline hyclate 100 MG Oral Tablet d oxycycline hyclate 100 mg tablet TAKE ONE TABLET BY MOUTH TWICE A DAY FOR 14 DAYS doxycycline hyclate 100 mg tablet TAKE ONE TABLET BY MOUTH TWICE A DAY FOR 14 DAYS completed doxycycline hyclate 100 MG Oral Tablet [facility] ([facility]) atorvastatin 10 MG Oral Tablet atorvastatin 10 mg tabl et atorvastatin 10 mg tablet completed atorvastatin 10 MG Oral Tablet [facility] ([facility]) Ergocalciferol 72157 UNT Oral Capsule Vi tamin D2 1,250 mcg (50,000 unit) capsule TAKE ONE CAPSULE BY MOUTH ONCE WEEKLY Vitamin D2 1,250 mcg (50,000 unit) capsu le TAKE ONE CAPSULE BY MOUTH ONCE WEEKLY completed ergocalciferol 1.25 MG Oral Capsule DION ([facility]) azelastine 137 mcg (0.1 %) nasal spray a erosol USE 1 SPRAY EACH NOSTRILTWO TIMES A DAY [id number] completed azelastin e hydrochloride 0.137 MG/ACTUAT Metered Dose Nasal [place] [facility] ([facility]) cetirizine hydrochloride 10 MG Oral Tabl et cetirizine 10 mg tablet TAKE ONE TABLET BY MOUTH EVERY DAY cetirizine 10 mg tablet TAKE ONE TABLET BY MOUTH EVERY DAY completed cetirizine hydro chloride 10 MG Oral Tablet [facility] ([facility]) Acetaminophen 300 MG / butalbital 50 MG / Caffeine 40 MG Oral Capsule wnygruonet-savalkrzxkztd-jgqfhgck 50 mg-300 mg-40 mg capsule TAKE 1 TABLET BY MOUTH THREE TIMES A DAY NEEDED FOR HEADACHE czxtihjhnm-mrwbhxitovirm-ttyqmnsh 50 mg-300 mg-40 mg capsule TAKE 1 TABLET BY MOUTH THREE TIMES A DAY NEEDED FOR HEADACHE completed a cetaminophen 300 MG / butalbital 50 MG / caffeine 40 MG Oral Capsule [facility] ([facility]) azelastine 137 mcg (0.1 %) nasal spray a erosol USE 1 SPRAY EACH NOSTRILTWO TIMES A DAY [id number] completed azelastin e hydrochloride 0.137 MG/ACTUAT Metered Dose Nasal [place] ([facility]) cetirizine hydrochloride 10 MG Oral Tabl et cetirizine 10 mg tablet TAKE ONE TABLET BY MOUTH EVERY DAY cetirizine 10 mg tablet TAKE ONE TABLET BY MOUTH EVERY DAY completed cetirizine hydro chloride 10 MG Oral Tablet [facility] ([facility]) cetirizine hydrochloride 10 MG Oral Tabl et cetirizine 10 mg tablet TAKE ONE TABLET BY MOUTH EVERY DAY cetirizine 10 mg tablet TAKE ONE TABLET BY MOUTH EVERY DAY completed cetirizine hydro chloride 10 MG Oral Tablet [place] ([facility]) Nicotine 4 MG/ACTUAT Inhalant Solution [ Nicotrol] Nicotrol 10 mg inhalation cartridge INHALE ONE PUFF BY MOUTH UP TO 16 TIMES DAILY Nicotrol 10 mg inhalation cartridge INHALE ONE PUFF BY MOUTH UP TO 16 TIMES DAILY completed nicotine 4 MG Inhalation Solutio n [Nicotrol] [place] ([facility]) atorvastatin 10 MG Oral Tablet atorvastatin 10 mg tabl et atorvastatin 10 mg tablet completed atorvastatin 10 MG Oral Tablet [place] ([facility]) Ergocalciferol [id number] UNT Oral Capsule Vi tamin D2 1,250 mcg (50,000 unit) capsule TAKE ONE CAPSULE BY MOUTH ONCE WEEKLY Vitamin D2 1,250 mcg (50,000 unit) capsule TAKE ONE CAPSULE BY MOUTH ONCE WEEKLY completed ergocalciferol 1.25 MG Oral Capsule [place] ([facility]) terbinafine 250 MG Oral Tablet terbinafi ne HCl 250 mg tablet TAKE 1 TABLET BY MOUTH DAILY terbinafine HCl 250 mg tablet TAKE 1 TABLET BY MOUTH DAILY completed terbinafine 250 MG Oral T ablet [place] ([facility]) Levofloxacin 750 MG Oral Tablet levoflox acin 750 mg tablet TAKE ONE TABLET BY MOUTH EVERY DAY levofloxacin 750 mg tablet TAKE ONE TABLET BY MOUTH EVERY DA Y completed levofloxacin 7 50 MG Oral Tablet [place] ([facility]) Adult Probiotic 3 billion cell capsule T indira 1 capsule every day by oral route for 14 days. [id number] 1 capsule(s) completed Adult Probiotic 3 billion cell capsule [facility] ([facility]) atorvastatin 20 MG Oral Tablet atorvastatin 20 mg tabl et atorvastatin 20 mg tablet completed atorvastatin 20 MG Oral Tablet [facility] ([facility]) Levofloxacin 750 MG Oral Tablet levoflox acin 750 mg tablet TAKE ONE TABLET BY MOUTH EVERY DAY levofloxacin 750 mg tablet TAKE ONE TABLET BY MOUTH EVERY DA Y completed levofloxacin 7 50 MG Oral Tablet [place] ([facility]) Naltrexone hydrochloride 50 MG Oral Tabl et naltrexone 50 mg tablet TAKE ONE TABLET BY MOUTH EVERY DAY naltrexone 50 mg tablet TAKE ONE TABLET BY MOUTH EVERY DAY completed naltrexone hydro chloride 50 MG Oral Tablet [place] ([facility]) azelastine 137 mcg (0.1 %) nasal spray a erosol USE 1 SPRAY EACH NOSTRILTWO TIMES A DAY [id number] completed azelasti ne hydrochloride 0.137 MG/ACTUAT Metered Dose Nasal [place] ([facility]) Clindamycin 300 MG Oral Capsule clindamy francois HCl 300 mg capsule TAKE ONE CAPSULE BY MOUTH EVERY 6 HOURS UNTIL FINISHED clindamycin HCl 300 mg capsule TAKE ONE CAPSULE BY MOUTH EVERY 6 HOURS UNTIL FINISHED completed clindamycin 300 MG Oral Capsule [place] ([facility]) terbinafine 250 MG Oral Tablet terbinafi ne HCl 250 mg tablet TAKE 1 TABLET BY MOUTH DAILY terbinafine HCl 250 mg tablet TAKE 1 TABLET BY MOUTH DAILY completed terbinafine 250 MG Oral T ablet [place] ([facility]) atorvastatin 20 MG Oral Tablet atorvastatin 20 mg tabl et atorvastatin 20 mg tablet completed atorvastatin 20 MG Oral Tablet [place] ([facility]) doxycycline hyclate 100 MG Oral Capsule doxycycline hyclate 100 mg capsule TAKE ONE CAPSULE BY MOUTH TWICE A DAY FOR 10 DAYS doxycycline hyclate 100 mg capsule TAKE ONE CAPSULE BY MOUTH TWICE A DAY FOR 10 DAYS completed doxycycline hyclate 100 MG Oral Capsule [place] ([facility]) Prednisone 20 MG Oral Tablet prednisone 20 mg tablet TAKE ONE TABLET BY MOUTH TWICE A DAY FOR 5 DAYS prednisone 20 mg tablet TAKE ONE TABLET BY MOUTH TWICE A DAY FOR 5 DAYS completed prednis one 20 MG Oral Tablet [place] ([facility]) Acetaminophen 300 MG / butalbital 50 MG / Caffeine 40 MG Oral Capsule dlhgwcutgy-rqluzbznzgaux-edcwwgcq 50 mg-300 mg-40 mg capsule TAKE 1 TABLET BY MOUTH THREE TIMES A DAY NEEDED FOR HEADACHE xokshjcfmh-jwhnetwmfvyha-vpkwaotz 50 mg-300 mg-40 mg capsule TAKE 1 TABLET BY MOUTH THREE TIMES A DAY NEEDED FOR HEADACHE completed a cetaminophen 300 MG / butalbital 50 MG / caffeine 40 MG Oral Capsule [place] ([facility]) Prednisone 20 MG Oral Tablet prednisone 20 mg tablet TAKE ONE TABLET BY MOUTH TWICE A DAY FOR 5 DAYS prednisone 20 mg tablet TAKE ONE TABLET BY MOUTH TWICE A DAY FOR 5 DAYS completed prednis one 20 MG Oral Tablet [place] ([facility]) albuterol sulfate HFA 90 mcg/actuation a erosol inhaler INHALE 2 PUFFS FOUR TIMES A DAY NEEDED FOR FOR SHORTNESS OF BREATH [id number] completed [id number] 200 ACTUAT albuterol 0.09 MG/ACTUAT Metered Dose Inhaler [place] ([facility]) Clindamycin 300 MG Oral Capsule clindamycin HCl 300 mg capsule clindamycin HCl 300 mg capsule completed clindam ycin 300 MG Oral Capsule [place] ([facility]) Prednisone 20 MG Oral Tablet prednisone 20 mg tablet TAKE ONE TABLET BY MOUTH TWICE A DAY FOR 5 DAYS prednisone 20 mg tablet TAKE ONE TABLET BY MOUTH TWICE A DAY FOR 5 DAYS completed prednis one 20 MG Oral Tablet [place] ([facility]) Nicotine 4 MG/ACTUAT Inhalant Solution [ Nicotrol] Nicotrol 10 mg inhalation cartridge INHALE ONE PUFF BY MOUTH UP TO 16 TIMES DAILY Nicotrol 10 mg inhalation cartridge INHALE ONE PUFF BY MOUTH UP TO 16 TIMES DAILY completed nicotine 4 MG Inhalation Solutio n [Nicotrol] [place] ([facility]) ciclopirox 80 MG/ML Topical Solution cic lopirox 8 % topical solution APPLY LAYER TO AFFECTED NAILS DAILY FOR 7 DAYS REMOVE WITH RUBBING ALCOHOL AND REPEAT UNTIL SYMPTOMS ARE GONE ciclopirox 8 % topical solution APPLY LA TOBI TO AFFECTED NAILS DAILY FOR 7 DAYS REMOVE WITH RUBBING ALCOHOL AND REPEAT UNTIL SYMPTOMS ARE GONE completed ciclopirox 80 MG /ML Topical Solution [place] ([facility]) Clindamycin 300 MG Oral Capsule clindamy francois HCl 300 mg capsule TAKE ONE CAPSULE BY MOUTH EVERY 6 HOURS UNTIL FINISHED clindamycin HCl 300 mg capsule TAKE ONE CAPSULE BY MOUTH EVERY 6 HOURS UNTIL FINISHED completed clindamycin 300 MG Oral Capsule [place] ([facility]) doxycycline hyclate 100 MG Oral Capsule doxycycline hyclate 100 mg capsule TAKE ONE CAPSULE BY MOUTH TWICE A DAY FOR 10 DAYS doxycycline hyclate 100 mg capsule TAKE ONE CAPSULE BY MOUTH TWICE A DAY FOR 10 DAYS completed doxycycline hyclate 100 MG Oral Capsule [place] ([facility]) Clindamycin 300 MG Oral Capsule clindamy francois HCl 300 mg capsule TAKE ONE CAPSULE BY MOUTH EVERY 6 HOURS UNTIL FINISHED clindamycin HCl 300 mg capsule TAKE ONE CAPSULE BY MOUTH EVERY 6 HOURS UNTIL FINISHED completed clindamycin 300 MG Oral Capsule [facility] ([facility]) terbinafine 250 MG Oral Tablet terbinafi ne HCl 250 mg tablet TAKE 1 TABLET BY MOUTH DAILY terbinafine HCl 250 mg tablet TAKE 1 TABLET BY MOUTH DAILY completed terbinafine 250 MG Oral T ablet [facility] ([facility]) terbinafine 250 MG Oral Tablet terbinafi ne HCl 250 mg tablet TAKE 1 TABLET BY MOUTH DAILY terbinafine HCl 250 mg tablet TAKE 1 TABLET BY MOUTH DAILY completed terbinafine 250 MG Oral T ablet [facility] ([facility]) atorvastatin 20 MG Oral Tablet atorvastatin 20 mg tabl et atorvastatin 20 mg tablet completed atorvastatin 20 MG Oral Tablet [facility] ([facility]) ciclopirox 80 MG/ML Topical Solution cic lopirox 8 % topical solution APPLY LAYER TO AFFECTED NAILS DAILY FOR 7 DAYS REMOVE WITH RUBBING ALCOHOL AND REPEAT UNTIL SYMPTOMS ARE GONE ciclopirox 8 % topical solution APPLY LA TOBI TO AFFECTED NAILS DAILY FOR 7 DAYS REMOVE WITH RUBBING ALCOHOL AND REPEAT UNTIL SYMPTOMS ARE GONE completed ciclopirox 80 MG /ML Topical Solution [facility] ([facility]) ciclopirox 80 MG/ML Topical Solution cic lopirox 8 % topical solution APPLY LAYER TO AFFECTED NAILS DAILY FOR 7 DAYS REMOVE WITH RUBBING ALCOHOL AND REPEAT UNTIL SYMPTOMS ARE GONE ciclopirox 8 % topical solution APPLY LA TOBI TO AFFECTED NAILS DAILY FOR 7 DAYS REMOVE WITH RUBBING ALCOHOL AND REPEAT UNTIL SYMPTOMS ARE GONE completed ciclopirox 80 MG /ML Topical Solution [place] ([facility]) Prednisone 20 MG Oral Tablet prednisone 20 mg tablet TAKE ONE TABLET BY MOUTH TWICE A DAY FOR 5 DAYS prednisone 20 mg tablet TAKE ONE TABLET BY MOUTH TWICE A DAY FOR 5 DAYS completed prednis one 20 MG Oral Tablet [facility] ([facility]) Ergocalciferol [id number] UNT Oral Capsule Vi tamin D2 1,250 mcg (50,000 unit) capsule TAKE ONE CAPSULE BY MOUTH ONCE WEEKLY Vitamin D2 1,250 mcg (50,000 unit) capsule TAKE ONE CAPSULE BY MOUTH ONCE WEEKLY completed ergocalciferol 1.25 MG Oral Capsule [facility] ([facility]) Prednisone 20 MG Oral Tablet prednisone 20 mg tablet TAKE ONE TABLET BY MOUTH TWICE A DAY FOR 5 DAYS prednisone 20 mg tablet TAKE ONE TABLET BY MOUTH TWICE A DAY FOR 5 DAYS completed prednis one 20 MG Oral Tablet [facility] ([facility]) Acetaminophen 300 MG / butalbital 50 MG / Caffeine 40 MG Oral Capsule qonprvsbel-sptafiwzliutx-mcnzvpbu 50 mg-300 mg-40 mg capsule TAKE 1 TABLET BY MOUTH THREE TIMES A DAY NEEDED FOR HEADACHE abbunvhnjt-izawgjzarsjle-ttfqhlhl 50 mg-300 mg-40 mg capsule TAKE 1 TABLET BY MOUTH THREE TIMES A DAY NEEDED FOR HEADACHE completed a cetaminophen 300 MG / butalbital 50 MG / caffeine 40 MG Oral Capsule [facility] ([facility]) Ergocalciferol [id number] UNT Oral Capsule Vi tamin D2 1,250 mcg (50,000 unit) capsule TAKE ONE CAPSULE BY MOUTH ONCE WEEKLY Vitamin D2 1,250 mcg (50,000 unit) capsule TAKE ONE CAPSULE BY MOUTH ONCE WEEKLY completed ergocalciferol 1.25 MG Oral Capsule [facility] ([facility]) Naltrexone hydrochloride 50 MG Oral Tabl et naltrexone 50 mg tablet TAKE ONE TABLET BY MOUTH EVERY DAY naltrexone 50 mg tablet TAKE ONE TABLET BY MOUTH EVERY DAY completed naltrexone hydro chloride 50 MG Oral Tablet [facility] ([facility]) atorvastatin 10 MG Oral Tablet atorvastatin 10 mg tabl et atorvastatin 10 mg tablet completed atorvastatin 10 MG Oral Tablet [facility] ([facility]) Acetaminophen 300 MG / butalbital 50 MG / Caffeine 40 MG Oral Capsule ctkaigkxyq-opaibxwawuvlq-aunurgux 50 mg-300 mg-40 mg capsule TAKE 1 TABLET BY MOUTH THREE TIMES A DAY NEEDED FOR HEADACHE mtryrelouj-uogzntnkarykx-dbatwgzn 50 mg-300 mg-40 mg capsule TAKE 1 TABLET BY MOUTH THREE TIMES A DAY NEEDED FOR HEADACHE completed a cetaminophen 300 MG / butalbital 50 MG / caffeine 40 MG Oral Capsule [facility] ([facility]) cetirizine hydrochloride 10 MG Oral Tabl et cetirizine 10 mg tablet TAKE ONE TABLET BY MOUTH EVERY DAY cetirizine 10 mg tablet TAKE ONE TABLET BY MOUTH EVERY DAY completed cetirizine hydro chloride 10 MG Oral Tablet [facility] ([facility]) Nicotine 4 MG/ACTUAT Inhalant Solution [ Nicotrol] Nicotrol 10 mg inhalation cartridge INHALE ONE PUFF BY MOUTH UP TO 16 TIMES DAILY Nicotrol 10 mg inhalation cartridge INHALE ONE PUFF BY MOUTH UP TO 16 TIMES DAILY completed nicotine 4 MG Inhalation Solutio n [Nicotrol] [facility] ([facility]) Acetaminophen 300 MG / butalbital 50 MG / Caffeine 40 MG Oral Capsule vipudmffbh-ikcntsstgjsff-sspbazdv 50 mg-300 mg-40 mg capsule TAKE 1 TABLET BY MOUTH THREE TIMES A DAY NEEDED FOR HEADACHE qmacwbnynq-uzynrsbkrlpzb-ppqldvno 50 mg-300 mg-40 mg capsule TAKE 1 TABLET BY MOUTH THREE TIMES A DAY NEEDED FOR HEADACHE completed a cetaminophen 300 MG / butalbital 50 MG / caffeine 40 MG Oral Capsule [place] ([facility]) Levofloxacin 750 MG Oral Tablet levoflox acin 750 mg tablet TAKE ONE TABLET BY MOUTH EVERY DAY levofloxacin 750 mg tablet TAKE ONE TABLET BY MOUTH EVERY DA Y completed levofloxacin 7 50 MG Oral Tablet [place] ([facility]) Ergocalciferol 86901 UNT Oral Capsule Vi tamin D2 1,250 mcg (50,000 unit) capsule TAKE ONE CAPSULE BY MOUTH ONCE WEEKLY Vitamin D2 1,250 mcg (50,000 unit) capsule TAKE ONE CAPSULE BY MOUTH ONCE WEEKLY completed ergocalciferol 1.25 MG Oral Capsule [place] ([facility]) Acetaminophen 300 MG / butalbital 50 MG / Caffeine 40 MG Oral Capsule gckbvkhave-gzvdbfwgcsami-qxwwiftp 50 mg-300 mg-40 mg capsule TAKE 1 TABLET BY MOUTH THREE TIMES A DAY NEEDED FOR HEADACHE fwyqvkmbgg-hfcgzkcxpeubf-koybmhoy 50 mg-300 mg-40 mg capsule TAKE 1 TABLET BY MOUTH THREE TIMES A DAY NEEDED FOR HEADACHE completed a cetaminophen 300 MG / butalbital 50 MG / caffeine 40 MG Oral Capsule [facility] ([facility]) doxycycline hyclate 100 MG Oral Tablet d oxycycline hyclate 100 mg tablet TAKE ONE TABLET BY MOUTH TWICE A DAY FOR 14 DAYS doxycycline hyclate 100 mg tablet TAKE ONE TABLET BY MOUTH TWICE A DAY FOR 14 DAYS completed doxycycline hyclate 100 MG Oral Tablet [facility] ([facility]) cetirizine hydrochloride 10 MG Oral Tabl et cetirizine 10 mg tablet TAKE ONE TABLET BY MOUTH EVERY DAY cetirizine 10 mg tablet TAKE ONE TABLET BY MOUTH EVERY DAY completed cetirizine hydro chloride 10 MG Oral Tablet [facility] ([facility]) Clindamycin 300 MG Oral Capsule clindamycin HCl 300 mg capsule clindamycin HCl 300 mg capsule completed clindam ycin 300 MG Oral Capsule [facility] ([facility]) Ergocalciferol 60728 UNT Oral Capsule Vi tamin D2 1,250 mcg (50,000 unit) capsule TAKE ONE CAPSULE BY MOUTH ONCE WEEKLY Vitamin D2 1,250 mcg (50,000 unit) capsule TAKE ONE CAPSULE BY MOUTH ONCE WEEKLY completed ergocalciferol 1.25 MG Oral Capsule [facility] ([facility]) doxycycline hyclate 100 MG Oral Tablet d oxycycline hyclate 100 mg tablet TAKE ONE TABLET BY MOUTH TWICE A DAY FOR 14 DAYS doxycycline hyclate 100 mg tablet TAKE ONE TABLET BY MOUTH TWICE A DAY FOR 14 DAYS completed doxycycline hyclate 100 MG Oral Tablet [facility] ([facility]) ciclopirox 80 MG/ML Topical Solution cic lopirox 8 % topical solution APPLY LAYER TO AFFECTED NAILS DAILY FOR 7 DAYS REMOVE WITH RUBBING ALCOHOL AND REPEAT UNTIL SYMPTOMS ARE GONE ciclopirox 8 % topical solution APPLY LA TOBI TO AFFECTED NAILS DAILY FOR 7 DAYS REMOVE WITH RUBBING ALCOHOL AND REPEAT UNTIL SYMPTOMS ARE GONE completed ciclopirox 80 MG /ML Topical Solution [facility] ([facility]) ciclopirox 80 MG/ML Topical Solution cic lopirox 8 % topical solution APPLY LAYER TO AFFECTED NAILS DAILY FOR 7 DAYS REMOVE WITH RUBBING ALCOHOL AND REPEAT UNTIL SYMPTOMS ARE GONE ciclopirox 8 % topical solution APPLY LA TOBI TO AFFECTED NAILS DAILY FOR 7 DAYS REMOVE WITH RUBBING ALCOHOL AND REPEAT UNTIL SYMPTOMS ARE GONE completed ciclopirox 80 MG /ML Topical Solution [facility] ([facility]) doxycycline hyclate 100 MG Oral Capsule doxycycline hyclate 100 mg capsule TAKE ONE CAPSULE BY MOUTH TWICE A DAY FOR 10 DAYS doxycycline hyclate 100 mg capsule TAKE ONE CAPSULE BY MOUTH TWICE A DAY FOR 10 DAYS completed doxycycline hyclate 100 MG Oral Capsule [facility] ([facility]) Prednisone 20 MG Oral Tablet prednisone 20 mg tablet TAKE TWO TABLETS BY MOUTH EVERY DAY FOR 5 DAYS prednisone 20 mg tablet TAKE TWO TABLETS BY MOUTH EVERY DAY FOR 5 DAYS completed prednisone 20 MG Oral Tablet [place] ([facility]) Prednisone 20 MG Oral Tablet prednisone 20 mg tablet TAKE ONE TABLET BY MOUTH TWICE A DAY FOR 5 DAYS prednisone 20 mg tablet TAKE ONE TABLET BY MOUTH TWICE A DAY FOR 5 DAYS completed prednis one 20 MG Oral Tablet [place] ([facility]) doxycycline hyclate 100 MG Oral Capsule doxycycline hyclate 100 mg capsule TAKE ONE CAPSULE BY MOUTH TWICE A DAY FOR 10 DAYS doxycycline hyclate 100 mg capsule TAKE ONE CAPSULE BY MOUTH TWICE A DAY FOR 10 DAYS completed doxycycline hyclate 100 MG Oral Capsule [place] ([facility]) doxycycline hyclate 100 MG Oral Capsule doxycycline hyclate 100 mg capsule TAKE ONE CAPSULE BY MOUTH TWICE A DAY FOR 10 DAYS doxycycline hyclate 100 mg capsule TAKE ONE CAPSULE BY MOUTH TWICE A DAY FOR 10 DAYS completed doxycycline hyclate 100 MG Oral Capsule [place] ([facility]) atorvastatin 20 MG Oral Tablet atorvastatin 20 mg tabl et atorvastatin 20 mg tablet completed atorvastatin 20 MG Oral Tablet [place] ([facility]) atorvastatin 20 MG Oral Tablet atorvastatin 20 mg tabl et atorvastatin 20 mg tablet completed atorvastatin 20 MG Oral Tablet [place] ([facility]) doxycycline hyclate 100 MG Oral Tablet d oxycycline hyclate 100 mg tablet TAKE ONE TABLET BY MOUTH TWICE A DAY FOR 14 DAYS doxycycline hyclate 100 mg tablet TAKE ONE TABLET BY MOUTH TWICE A DAY FOR 14 DAYS completed doxycycline hyclate 100 MG Oral Tablet [place] ([facility]) terbinafine 250 MG Oral Tablet terbinafi ne HCl 250 mg tablet TAKE 1 TABLET BY MOUTH DAILY terbinafine HCl 250 mg tablet TAKE 1 TABLET BY MOUTH DAILY completed terbinafine 250 MG Oral T ablet [facility] ([facility]) atorvastatin 20 MG Oral Tablet atorvastatin 20 mg tabl et atorvastatin 20 mg tablet completed atorvastatin 20 MG Oral Tablet [place] ([facility]) Nicotine 4 MG/ACTUAT Inhalant Solution [ Nicotrol] Nicotrol 10 mg inhalation cartridge INHALE ONE PUFF BY MOUTH UP TO 16 TIMES DAILY Nicotrol 10 mg inhalation cartridge INHALE ONE PUFF BY MOUTH UP TO 16 TIMES DAILY completed nicotine 4 MG Inhalation Solutio n [Nicotrol] [place] ([facility]) ciclopirox 80 MG/ML Topical Solution cic lopirox 8 % topical solution APPLY LAYER TO AFFECTED NAILS DAILY FOR 7 DAYS REMOVE WITH RUBBING ALCOHOL AND REPEAT UNTIL SYMPTOMS ARE GONE ciclopirox 8 % topical solution APPLY LA TOBI TO AFFECTED NAILS DAILY FOR 7 DAYS REMOVE WITH RUBBING ALCOHOL AND REPEAT UNTIL SYMPTOMS ARE GONE completed ciclopirox 80 MG /ML Topical Solution [facility] ([facility]) doxycycline hyclate 100 MG Oral Tablet d oxycycline hyclate 100 mg tablet TAKE ONE TABLET BY MOUTH TWICE A DAY FOR 14 DAYS doxycycline hyclate 100 mg tablet TAKE ONE TABLET BY MOUTH TWICE A DAY FOR 14 DAYS completed doxycycline hyclate 100 MG Oral Tablet [facility] ([facility]) terbinafine 250 MG Oral Tablet terbinafi ne HCl 250 mg tablet TAKE 1 TABLET BY MOUTH DAILY terbinafine HCl 250 mg tablet TAKE 1 TABLET BY MOUTH DAILY completed terbinafine 250 MG Oral T ablet [facility] ([facility]) Adult Probiotic 3 billion cell capsule T indira 1 capsule every day by oral route for 14 days. [id number] 1 capsule(s) completed Adult Probiotic 3 billion cell capsule [facility] ([facility]) atorvastatin 20 MG Oral Tablet atorvastatin 20 mg tabl et atorvastatin 20 mg tablet completed atorvastatin 20 MG Oral Tablet [facility] ([facility]) Adult Probiotic 3 billion cell capsule T indira 1 capsule every day by oral route for 14 days. [id number] 1 capsule(s) completed Adult Probiotic 3 billion cell capsule [facility] ([facility]) doxycycline hyclate 100 MG Oral Tablet d oxycycline hyclate 100 mg tablet TAKE ONE TABLET BY MOUTH TWICE A DAY FOR 14 DAYS doxycycline hyclate 100 mg tablet TAKE ONE TABLET BY MOUTH TWICE A DAY FOR 14 DAYS completed doxycycline hyclate 100 MG Oral Tablet [facility] ([facility]) atorvastatin 10 MG Oral Tablet atorvastatin 10 mg tabl et atorvastatin 10 mg tablet completed atorvastatin 10 MG Oral Tablet [facility] ([facility]) Adult Probiotic 3 billion cell capsule T indira 1 capsule every day by oral route for 14 days. [id number] 1 capsule(s) completed Adult Probiotic 3 billion cell capsule [facility] ([facility]) doxycycline hyclate 100 MG Oral Capsule doxycycline hyclate 100 mg capsule TAKE ONE CAPSULE BY MOUTH TWICE A DAY FOR 10 DAYS doxycycline hyclate 100 mg capsule TAKE ONE CAPSULE BY MOUTH TWICE A DAY FOR 10 DAYS completed doxycycline hyclate 100 MG Oral Capsule [place] ([facility]) Nicotine 4 MG/ACTUAT Inhalant Solution [ Nicotrol] Nicotrol 10 mg inhalation cartridge INHALE ONE PUFF BY MOUTH UP TO 16 TIMES DAILY Nicotrol 10 mg inhalation cartridge INHALE ONE PUFF BY MOUTH UP TO 16 TIMES DAILY completed nicotine 4 MG Inhalation Solutio n [Nicotrol] [place] ([facility]) terbinafine 250 MG Oral Tablet terbinafi ne HCl 250 mg tablet TAKE 1 TABLET BY MOUTH DAILY terbinafine HCl 250 mg tablet TAKE 1 TABLET BY MOUTH DAILY completed terbinafine 250 MG Oral T ablet [facility]) Nicotine 4 MG/ACTUAT Inhalant Solution [ Nicotrol] Nicotrol 10 mg inhalation cartridge INHALE ONE PUFF BY MOUTH UP TO 16 TIMES DAILY Nicotrol 10 mg inhalation cartridge INHALE ONE PUFF BY MOUTH UP TO 16 TIMES DAILY completed nicotine 4 MG Inhalation Solutio n [Nicotrol] [place] ([facility]) Levofloxacin 750 MG Oral Tablet levoflox acin 750 mg tablet TAKE ONE TABLET BY MOUTH EVERY DAY levofloxacin 750 mg tablet TAKE ONE TABLET BY MOUTH EVERY DA Y completed levofloxacin 7 50 MG Oral Tablet [facility]) ciclopirox 80 MG/ML Topical Solution cic lopirox 8 % topical solution APPLY LAYER TO AFFECTED NAILS DAILY FOR 7 DAYS REMOVE WITH RUBBING ALCOHOL AND REPEAT UNTIL SYMPTOMS ARE GONE ciclopirox 8 % topical solution APPLY LA TOBI TO AFFECTED NAILS DAILY FOR 7 DAYS REMOVE WITH RUBBING ALCOHOL AND REPEAT UNTIL SYMPTOMS ARE GONE completed ciclopirox 80 MG /ML Topical Solution [place] ([facility]) atorvastatin 10 MG Oral Tablet atorvastatin 10 mg tabl et atorvastatin 10 mg tablet completed atorvastatin 10 MG Oral Tablet [place] ([facility]) Levofloxacin 750 MG Oral Tablet levoflox acin 750 mg tablet TAKE ONE TABLET BY MOUTH EVERY DAY levofloxacin 750 mg tablet TAKE ONE TABLET BY MOUTH EVERY DA Y completed levofloxacin 7 50 MG Oral Tablet [place] ([facility]) Clindamycin 300 MG Oral Capsule clindamy francois HCl 300 mg capsule TAKE ONE CAPSULE BY MOUTH EVERY 6 HOURS UNTIL FINISHED clindamycin HCl 300 mg capsule TAKE ONE CAPSULE BY MOUTH EVERY 6 HOURS UNTIL FINISHED completed clindamycin 300 MG Oral Capsule [place] ([facility]) Nicotine 4 MG/ACTUAT Inhalant Solution [ Nicotrol] Nicotrol 10 mg inhalation cartridge INHALE ONE PUFF BY MOUTH UP TO 16 TIMES DAILY Nicotrol 10 mg inhalation cartridge INHALE ONE PUFF BY MOUTH UP TO 16 TIMES DAILY completed nicotine 4 MG Inhalation Solutio n [Nicotrol] [place] ([facility]) atorvastatin 10 MG Oral Tablet atorvastatin 10 mg tabl et atorvastatin 10 mg tablet completed atorvastatin 10 MG Oral Tablet [place] ([facility]) doxycycline hyclate 100 MG Oral Capsule doxycycline hyclate 100 mg capsule TAKE ONE CAPSULE BY MOUTH TWICE A DAY FOR 10 DAYS doxycycline hyclate 100 mg capsule TAKE ONE CAPSULE BY MOUTH TWICE A DAY FOR 10 DAYS completed doxycycline hyclate 100 MG Oral Capsule [place] ([facility]) Acetaminophen 300 MG / butalbital 50 MG / Caffeine 40 MG Oral Capsule srglzpbzpr-buxozvuwytwui-vdhkifgg 50 mg-300 mg-40 mg capsule TAKE 1 TABLET BY MOUTH THREE TIMES A DAY NEEDED FOR HEADACHE syngnkcaua-ayoxzooxutyon-wuapbsqb 50 mg-300 mg-40 mg capsule TAKE 1 TABLET BY MOUTH THREE TIMES A DAY NEEDED FOR HEADACHE completed a cetaminophen 300 MG / butalbital 50 MG / caffeine 40 MG Oral Capsule [place] ([facility]) doxycycline hyclate 100 MG Oral Tablet d oxycycline hyclate 100 mg tablet TAKE ONE TABLET BY MOUTH TWICE A DAY FOR 14 DAYS doxycycline hyclate 100 mg tablet TAKE ONE TABLET BY MOUTH TWICE A DAY FOR 14 DAYS completed doxycycline hyclate 100 MG Oral Tablet [place] ([facility]) Insurance Providers Payer name Policy type / Coverage type Policy ID Covered constitution party ID Covered constitution party's relationship to chacko Policy Chacko Plan Information COUNT INCLUDES THE [facility] COMMUNITY PLAN [facility] [id number] SP [id number] COUNT INCLUDES THE [facility] COMMUNITY PLAN [facility] [id number] SP [id number] COUNT INCLUDES THE [facility] COMMUNITY PLAN [facility] [id number] SP [id number] [place] [id number] 200 [place] [id number] [employer] [id number] [facility] [id number] Managed Care [place] P UNAVAILABLE S UNAVAILABLE Medicaid S UNAVAILABLE S UNAVAILA BLE ANSI-Commercial [id number] ANSI-Commercial [id number] [employer] [id number] [facility] [id number] [place] [facility] [place] Medicaid [id number] Self [id number] ANSI-Commercial [id number] ANSI-Commercial [id number] ANSI-Commercial [id number] ANSI-Commercial [id number] ANSI-Commercial [id number] [facility] [id number] Commercial Insurance [id number] ID IDENTIFICATION [id number] Other Insurance [id number] ANSI-Commercial [id number] ANSI-Commercial [id number] ANSI-Commercial [id number] ANSI-Commercial [id number] ANSI-Commercial [id number]-gfbf-[id number] ANSI-Commercial [id number]-[id number] [id number]-[id number] ANSI-Commercial [id number]-[id number] ANSI-Commercial [id number] ANSI-Commercial [id number] ANSI-Commercial [id number]-[id number] ANSI-Commercial [id number] vu45ay7b-[id number]-[id number] ANSI-Commercial [id number]-[id number]-[id number] [facility] [id number] ANSI-Commercial [id number] ANSI-Commercial [id number] ANSI-Commercial [id number]-mk6j-[id number] ANSI-Commercial [id number] ANSI-Commercial [id number]-[id number]-80y9-[id number] ANSI-Commercial [id number] [facility] [id number] 18 [id number] ANSI-Commercial [id number]-[id number] ANSI-Commercial [id number]-[id number]-[id number] ANSI-Commercial [id number] ANSI-Commercial [id number]-[id number]-[id number] ANSI-Commercial [id number] ANSI-Commercial [id number] ANSI-Commercial [id number] ANSI-Commercial [id number] ANSI-Commercial [id number] ANSI-Commercial [id number] ANSI-Commercial [id number] ANSI-Commercial [id number]-[id number] COUNT INCLUDES THE [facility] COMMUNITY PLAN [facility] [id number] [facility]) O [id number] S [id number] [facility] Community Plan Commercial [id number] Self [id number] [facility] Health Maintenance Organization (HMO) [id number] Self [id number] [facility] MEDICAID [facility] HMO [id number] S [id number] [employer] [facility] MEDICAID MCD HMO UNAVAILABLE S UNAVAILABLE [facility] Health Maintenance Organization (HMO) [id number] Self [id number] [facility] Health Maintenance Organization (HMO) [id number] Self [id number] [facility] Health Maintenance Organization (HMO) [id number] Self [id number] COUNT INCLUDES THE [facility] COMMUNITY [facility]AN [facility] [id number] SP [id number] [facility]) O [id number] S [id number] COUNT INCLUDES THE [facility] COMMUNITY PLAN [facility] [id number] SP [id number] [facility] Community Plan Health Maintenance Organization (HMO) [id number] Self [place] [id number] SP [id number] 200 MEDICAID [id number] SP [id number] [place] [id number] SP [id number] SELF PAY ONLY [id number] SP [id number] [place] [id number] SP [id number] [place] [facility] [id number] S [id number] Self Pay P UNAVAILABLE S UNAVAILA BLE Problems, Conditions, and Diagnoses Code Display Name Description Problem Type Effective Dates Data Source(s) 95471741 Nasal congestion Nasal Congestion Problem 04/30/2021 12 :00:00 AM EDT [facility]) [id number] Nasal congestion Nasal Congestion Problem 04/30/2021 12 :00:00 AM EDT [facility]) 72551639 Restless legs Restless Legs Problem 04/30/2021 12:00:00 AM EDT [place] ([facility]) 68382632 Nasal congestion Nasal Congestion Problem 04/30/2021 12 :00:00 AM EDT [place] ([facility]) 56446752 Restless legs Restless Legs Problem 04/30/2021 12:00:00 AM EDT [place] ([facility]) 93622042 Restless legs Restless Legs Problem 04/30/2021 12:00:00 AM EDT [place] ([facility]) 258570024 Backache Backache Problem 08/21/2020 12:00:00 AM ES T [place] ([facility]) 189690863 Backache Backache Problem 08/21/2020 12:00:00 AM ES [place] ([facility]) 714434981 Backache Backache Problem 08/21/2020 12:00:00 AM ES T [place] ([facility]) 813314295 Backache Backache Problem 08/21/2020 12:00:00 AM ES [place] ([facility]) 665119972 Backache Backache Problem 08/21/2020 12:00:00 AM ES T [place] ([facility]) 396764579 Backache Backache Problem 08/21/2020 12:00:00 AM ES [place] ([facility]) 358577353 Acquired absence of multiple teeth Acquired Abse nce of Multiple Teeth Problem 11/24/2019 12:00:00 AM EDT - 09/05/2020 12:00:00 AM LUZ ELENA [place] ([facility]) 873541434 Acquired absence of multiple teeth Acquired Abse nce of Multiple Teeth Problem 11/24/2019 12:00:00 AM EDT - 09/05/2020 12:00:00 AM ES [place] ([facility]) 126376219 Acquired absence of multiple teeth Acquired Abse nce of Multiple Teeth Problem 11/24/2019 12:00:00 AM EDT - 09/05/2020 12:00:00 AM ES [place] ([facility]) 178848160 Acquired absence of multiple teeth Acquired Abse nce of Multiple Teeth Problem 11/24/2019 12:00:00 AM EDT - 09/05/2020 12:00:00 AM [place] ([facility]) 429061179 Acquired absence of multiple teeth Acquired Abse nce of Multiple Teeth Problem 11/24/2019 12:00:00 AM EDT - 09/05/2020 12:00:00 AM [place] ([facility]) 259025897 Acquired absence of multiple teeth Acquired Abse nce of Multiple Teeth Problem 11/24/2019 12:00:00 AM EDT - 09/05/2020 12:00:00 AM [place] ELE[place] ([facility]) 949170997 Clinical finding Clinical Finding Problem 020 12:00:00 AM EDT - 09/05/2020 12:00:00 AM EST [place] ([facility]) 961513412 Clinical finding Clinical Finding Problem 12:00:00 AM EDT - 09/05/2020 12:00:00 AM EST [place] ([facility]) 641002535 Clinical finding Clinical Finding Problem 12:00:00 AM EDT - 09/05/2020 12:00:00 AM EST [place] ([facility]) 556024353 Clinical finding Clinical Finding Problem 020 12:00:00 AM EDT - 09/05/2020 12:00:00 AM EST [place] ([facility]) 332110461 Clinical finding Clinical Finding Problem 020 12:00:00 AM EDT - 09/05/2020 12:00:00 AM EST [place] ([facility]) 921764440 Clinical finding Clinical Finding Problem 020 12:00:00 AM EDT - 09/05/2020 12:00:00 AM EST [place] ([facility]) [id number] Dental caries on smooth surface penetrat ing into pulp Dental Caries on Smooth Surface Penetrating into Pulp Problem 019 12:00:00 AM EST - 09/05/2020 12:00:00 AM EST [place] ([facility]) [id number] Dental caries on smooth surface penetrat ing into pulp Dental Caries on Smooth Surface Penetrating into Pulp Problem 019 12:00:00 AM EST - 09/05/2020 12:00:00 AM EST [place] ([facility]) [id number] Dental caries on smooth surface penetrat ing into pulp Dental Caries on Smooth Surface Penetrating into Pulp Problem 019 12:00:00 AM EST - 09/05/2020 12:00:00 AM EST [place] ([facility]) [id number] Dental caries on smooth surface penetrat ing into pulp Dental Caries on Smooth Surface Penetrating into Pulp Problem 019 12:00:00 AM EST - 09/05/2020 12:00:00 AM EST [place] ([facility]) [id number] Dental caries on smooth surface penetrat ing into pulp Dental Caries on Smooth Surface Penetrating into Pulp Problem 12:00:00 AM EST - 09/05/2020 12:00:00 AM EST [place] ([facility]) [id number] Dental caries on smooth surface penetrat ing into pulp Dental Caries on Smooth Surface Penetrating into Pulp Problem 12:00:00 AM EST - 09/05/2020 12:00:00 AM EST [place] ([facility]) Surgeries/Procedures No Information Results ID Date Data Source [id number] 07/22/2020 12:00:00 AM EST [facility] Name Value Range Interpretation Code Description Data Yareli rce(s) Supporting Document(s) Carestart Rapid COVID Antigen Test [facility] This lab was reported by [facility] Julio conrad. ID Date Data Source [id number] 04/23/2020 01:42:43 PM EDT [facility] Current Problems: Onychomycosis (ICD-110 .1) (EHR66-Z30.1)Episodic tension type headache (ICD-339.11) (XCC07-H28.219)Tinea corporis (ICD-110.5) (ICD10- B35.4)Tobacco user (ICD-305.1) (PQL84-M59.200)Teeth extraction (ICD-525.10) (GVT23-M94.499)Pure hypercholesterolemia, unspecified (GCV60-Q62.00)Chronic neck pain for greater than 3 months (XIT18-G34.2)Muscle weakness (ICD-728.87) (MYC73-I60.81)Low back pain (ICD-724.2) (ZKC56-V01.5)Nicotine dependence, cigarettes, uncomplicated (IRW70-J61.210)Vitamin D deficiency, unspecified (HOA65-J77.9)Health Screening (ICD-V70.0) (HJW47-D88.9)BMI < 20 (ICD-V85.0) (DAB80-I23.1)DENTAL CARIES EXTENDING INTO PULP (ICD-521.03) (ICD10- K02.63)Current Medications: CLINDAMYCIN HCL 300 MG CAPS (CLINDAMYCIN HCL) 1 every 6 hours until finished; Route: ORALCICLOPIROX 8 % EXTERNAL SOLUTION (CICLOPIROX) Apply layer to affected nails daily x 7 days, remove with rubbing alcohol and repeat until symptoms gone; Route: EXTERNALTERBINAFINE HCL 250 MG ORAL TABLET (TERBINAFINE HCL) Take 1 tablet po daily; Route: ORALNICOTROL 10 MG INHALATION INHALER (NICOTINE) 1 oral inhalation cartridge up to 16 times daily; Route: MGJBJDOLHCMEBYAILYDJ-OTWH-JOCBWJAW 50-300-40 MG ORAL CAPSULE (B LRYSDASIE-IZRD-CYBCQPDX) one tab po TID prn RAMOS; Route: ORALALBUTEROL SULFATE HFA 108 (90 BASE) MCG/ACT INHALATION AEROSOL SOLUTION (ALBUTEROL SULFATE) 2 puffs QID prn SOB; Route: INHALATIONATORVASTATIN CALCIUM 20 MG ORAL TABLET (ATORVASTATIN CALCIUM) Take 1 tablet po daily; Route: ORALCurrent Allergies: PENICILLIN V POTASSIUM (PENICILLIN V POTASSIUM TABS) (Critical)NICODERM CQ (NICOTINE) (Mild) Dental Chart: Procedures:Type - CDT Code - Description B - (D0220) Intraoral, periapical, first radiographic image on Tooth # 4 (Performed by Melinda Rios DMD) B - (D0140) Limited oral evaluation - problem focused on Tooth # 4 (Performed by Melinda Rios DMD) Chart Notes:kasey (Apr 23 2020 2:19PM): Additional PPE requirements due to COVID-19 in the dental setting, N95, surgical mask, hair covering, gown and shield.S: CC:"I have some teeth on the top right that are causing me pain and making my head hurt. I feel swollen and infected."O: RMHx (-) per pt. is allergic to Penicillin. HPI: A few days PL:9 BP: 134/68. PA taken#4 SInus infection present with bone loss.A: DDS recommends pt. to follow up with OS referral, placed antibiotics to [facility] on [address] as well as provided dry mouth mouthrinse to the pt. , DX: bone loss with sinus infection present.P:placed antibiotics and to follow up with [facility]-scribe Clindamycin 300mg q6h 28 with no refills Informed Pt about new pain management policy of the clinic regarding about narcotic,told pt to alternate Ibuprophen 600- 800mg and tylenol 500mg every 4 to 6 hrs for pain when needed. Assisted By:Melinda Lopez DMD by kasey (04/23/2020 2:19 PM): Tooth Notes and Watches: Medication Changes:New Prescription:CLINDAMYCIN HCL 300 MG CAPS-1 every 6 hours until finished Qty: 28[Capsule] Refills: 0 Method: Electronic Name Value Range Interpretation Code Description Data Yareli rce(s) Supporting Document(s) ID Date Data Source [id number] 04/16/2020 11:03:26 AM EDT [facility] Labs In-House Blood TestsDate/Time Colle cted: April 16, 2020 10:44 AMTest Result Reference Range Normal ValueComments: Labs drawn in office. Taken from left AC. Tolerated well Ailyn Banda MA, April 16, 2020 11:03 AMAssessment & Plan Orders:[id number] Vst-Est Level I [CPT-39919] 09268 - Venipuncture [CPT-94885] a t 12:08 PM Name Value Range Interpretation Code Description Data Yareli rce(s) Supporting Document(s) ID Date Data Source [id number] 04/16/2020 10:44:00 AM EDT [facility] Name Value Range Interpretation Code Description Data Yareli rce(s) Supporting Document(s) BG FASTING 116 mg/dL 70-100 H [facility] Procedure Social History No Information Vital Signs ID Date Data Source UNK Name Value Range Interpretation Code Description Data Source(s) Body height 67 [in_i] 67 [in_i] [place] ([facility]) Body mass index (BMI) [Ratio] 19.6 kg/m2 19.6 k g/m2 [place] ([facility]) Body weight 2000 [oz_av] 2000 [oz_av] [facility] ([facility]) Body weight 2000 [oz_av] 2000 [oz_av] [facility] ([facility]) Body height 67 [in_i] 67 [in_i] [place] ([facility]) Body mass index (BMI) [Ratio] 19.6 kg/m2 19.6 k g/m2 [place] ([facility]) Body mass index (BMI) [Ratio] 19.4 kg/m2 19.4 k g/m2 [facility] ([facility]) Diastolic blood pressure 88 mm[Hg] 88 mm[Hg] [place] ([facility]) Body height 67 [in_i] 67 [in_i] [facility] ([facility]) Systolic blood pressure 133 mm[Hg] 133 mm[Hg] A THENA ([facility]) Body weight 1980.8 [oz_av] 1980.8 [oz_av] ATHEN A ([facility]) Diastolic blood pressure 88 mm[Hg] 88 mm[Hg] [place] ([facility]) Body height 67 [in_i] 67 [in_i] [place] ([facility]) Body mass index (BMI) [Ratio] 19.4 kg/m2 19.4 k g/m2 [facility] ([facility]) Systolic blood pressure 133 mm[Hg] 133 mm[Hg] A THE[facility] ([facility]) Body weight 1980.8 [oz_av] 1980.8 [oz_av] ATHEN A ([facility]) Diastolic blood pressure 88 mm[Hg] 88 mm[Hg] [facility] ([facility]) Body height 67 [in_i] 67 [in_i] [facility] ([facility]) Body mass index (BMI) [Ratio] 19.4 kg/m2 19.4 k g/m2 [facility] ([facility]) Systolic blood pressure 133 mm[Hg] 133 mm[Hg] [facility] Body weight 1980.8 [oz_av] 1980.8 [oz_av] ATHEN A ([facility]) Body weight 1888 [oz_av] 1888 [oz_av] [facility] ([facility]) Body mass index (BMI) [Ratio] 18.5 kg/m2 18.5 k g/m2 [facility] ([facility]) Diastolic blood pressure 82 mm[Hg] 82 mm[Hg] [facility] ([facility]) Body height 67 [in_i] 67 [in_i] [facility] ([facility]) Systolic blood pressure 131 mm[Hg] 131 mm[Hg] [facility] Diastolic blood pressure 82 mm[Hg] 82 mm[Hg] [facility] ([facility]) Body height 67 [in_i] 67 [in_i] [facility] ([facility]) Body mass index (BMI) [Ratio] 18.5 kg/m2 18.5 k g/m2 [facility] ([facility]) Systolic blood pressure 131 mm[Hg] 131 mm[Hg] [facility] Body weight 1888 [oz_av] 1888 [oz_av] [facility] ([facility]) Diastolic blood pressure 82 mm[Hg] 82 mm[Hg] [facility] ([facility]) Body height 67 [in_i] 67 [in_i] [facility] ([facility]) Body mass index (BMI) [Ratio] 18.5 kg/m2 18.5 k g/m2 [facility] ([facility]) Systolic blood pressure 131 mm[Hg] 131 mm[Hg] A THENA ([facility]) Body weight 1888 [oz_av] 1888 [oz_av] [facility] ([facility]) Diastolic blood pressure 82 mm[Hg] 82 mm[Hg] [facility] ([facility]) Body height 67 [in_i] 67 [in_i] [facility] ([facility]) Body mass index (BMI) [Ratio] 18.5 kg/m2 18.5 k g/m2 [facility] ([facility]) Systolic blood pressure 131 mm[Hg] 131 mm[Hg] A [facility] ([facility]) Body weight 1888 [oz_av] 1888 [oz_av] [facility] ([facility]) Diastolic blood pressure 87 mm[Hg] 87 mm[Hg] [facility] ([facility]) Body height 67 [in_i] 67 [in_i] [facility] ([facility]) Body mass index (BMI) [Ratio] 20 kg/m2 20 kg/ m2 [facility] ([facility]) Systolic blood pressure 127 mm[Hg] 127 mm[Hg] [facility] Body weight 2044.8 [oz_av] 2044.8 [oz_av] ATHEN A ([facility]) Body height 67 [in_i] 67 [in_i] [facility] ([facility]) Diastolic blood pressure 87 mm[Hg] 87 mm[Hg] DION ([facility]) Body mass index (BMI) [Ratio] 20 kg/m2 20 kg/ m2 DION ([facility]) Systolic blood pressure 127 mm[Hg] 127 mm[Hg] [facility] Body weight 2044.8 [oz_av] 2044.8 [oz_av] ATHEN A ([facility]) Diastolic blood pressure 87 mm[Hg] 87 mm[Hg] DION ([facility]) Body height 67 [in_i] 67 [in_i] DION ([facility]) Body mass index (BMI) [Ratio] 20 kg/m2 20 kg/ m2 DION ([facility]) Systolic blood pressure 127 mm[Hg] 127 mm[Hg] [facility] Body weight 2044.8 [oz_av] 2044.8 [oz_av] ATHEN A ([facility]) Body height 67 [in_i] 67 [in_i] DION ([facility]) Body mass index (BMI) [Ratio] 20 kg/m2 20 kg/ m2 DION ([facility]) Diastolic blood pressure 87 mm[Hg] 87 mm[Hg] DION ([facility]) Systolic blood pressure 127 mm[Hg] 127 mm[Hg] A [facility] ([facility]) Body weight 2044.8 [oz_av] 2044.8 [oz_av] ATHEN A ([facility]) Systolic blood pressure 127 mm[Hg] 127 mm[Hg] [facility] Body weight 2044.8 [oz_av] 2044.8 [oz_av] ATHEN A ([facility]) Diastolic blood pressure 87 mm[Hg] 87 mm[Hg] DION ([facility]) Body height 67 [in_i] 67 [in_i] DION ([facility]) Body mass index (BMI) [Ratio] 20 kg/m2 20 kg/ m2 DION ([facility]) Diastolic blood pressure 87 mm[Hg] 87 mm[Hg] DION ([facility]) Body height 67 [in_i] 67 [in_i] [facility] System) Body mass index (BMI) [Ratio] 20 kg/m2 20 kg/ m2 D[facility] ([facility]) Systolic blood pressure 127 mm[Hg] 127 mm[Hg] [facility] Body weight 2044.8 [oz_av] 2044.8 [oz_av] ATHEN A ([facility]) Body weight 1964.8 [oz_av] 1964.8 [oz_av] ATHEN A ([facility]) Diastolic blood pressure 87 mm[Hg] 87 mm[Hg] D[facility] ([facility]) Body height 67 [in_i] 67 [in_i] [facility] ([facility]) Body mass index (BMI) [Ratio] 19.2 kg/m2 19.2 k g/m2 [facility] ([facility]) Systolic blood pressure 135 mm[Hg] 135 mm[Hg] A THENA ([facility]) Diastolic blood pressure 87 mm[Hg] 87 mm[Hg] D[facility] ([facility]) Body height 67 [in_i] 67 [in_i] [facility] ([facility]) Body mass index (BMI) [Ratio] 19.2 kg/m2 19.2 k g/m2 [facility] ([facility]) Systolic blood pressure 135 mm[Hg] 135 mm[Hg] [facility] Body weight 1964.8 [oz_av] 1964.8 [oz_av] ATHEN A ([facility]) Diastolic blood pressure 87 mm[Hg] 87 mm[Hg] DION ([facility]) Body height 67 [in_i] 67 [in_i] D[facility] ([facility]) Body mass index (BMI) [Ratio] 19.2 kg/m2 19.2 k g/m2 [facility] ([facility]) Systolic blood pressure 135 mm[Hg] 135 mm[Hg] A THENA ([facility]) Body weight 1964.8 [oz_av] 1964.8 [oz_av] ATHEN A ([facility]) Diastolic blood pressure 87 mm[Hg] 87 mm[Hg] D[facility] ([facility]) Body height 67 [in_i] 67 [in_i] D[facility] ([facility]) Body mass index (BMI) [Ratio] 19.2 kg/m2 19.2 k g/m2 [facility] ([facility]) Systolic blood pressure 135 mm[Hg] 135 mm[Hg] A THENA ([facility]) Body weight 1964.8 [oz_av] 1964.8 [oz_av] ATHEN A ([facility]) Diastolic blood pressure 87 mm[Hg] 87 mm[Hg] D[facility] ([facility]) Body height 67 [in_i] 67 [in_i] [facility] ([facility]) Body mass index (BMI) [Ratio] 19.2 kg/m2 19.2 k g/m2 [facility] ([facility]) Systolic blood pressure 135 mm[Hg] 135 mm[Hg] [facility] Body weight 1964.8 [oz_av] 1964.8 [oz_av] ATHEN A ([facility]) Diastolic blood pressure 87 mm[Hg] 87 mm[Hg] D[facility] ([facility]) Body height 67 [in_i] 67 [in_i] [facility] ([facility]) Body mass index (BMI) [Ratio] 19.2 kg/m2 19.2 k g/m2 [facility] ([facility]) Systolic blood pressure 135 mm[Hg] 135 mm[Hg] [facility] Body weight 1964.8 [oz_av] 1964.8 [oz_av] ATHEN A ([facility]) Diastolic blood pressure 81 mm[Hg] 81 mm[Hg] D[facility] ([facility]) Body height 67 [in_i] 67 [in_i] [facility] ([facility]) Body mass index (BMI) [Ratio] 18.9 kg/m2 18.9 k g/m2 [facility] ([facility]) Systolic blood pressure 127 mm[Hg] 127 mm[Hg] [facility] Body weight 1926.4 [oz_av] 1926.4 [oz_av] ATHEN A ([facility]) Diastolic blood pressure 81 mm[Hg] 81 mm[Hg] [facility] ([facility]) Body height 67 [in_i] 67 [in_i] [facility] ([facility]) Body mass index (BMI) [Ratio] 18.9 kg/m2 18.9 k g/m2 [facility] ([facility]) Systolic blood pressure 127 mm[Hg] 127 mm[Hg] [facility] Diastolic blood pressure 81 mm[Hg] 81 mm[Hg] [facility] ([facility]) Body weight 1926.4 [oz_av] 1926.4 [oz_av] ATHEN A ([facility]) Body height 67 [in_i] 67 [in_i] [facility] ([facility]) Body mass index (BMI) [Ratio] 18.9 kg/m2 18.9 k g/m2 [facility] ([facility]) Systolic blood pressure 127 mm[Hg] 127 mm[Hg] [facility] Body weight 1926.4 [oz_av] 1926.4 [oz_av] ATHEN A ([facility]) Diastolic blood pressure 81 mm[Hg] 81 mm[Hg] [facility] ([facility]) Body height 67 [in_i] 67 [in_i] [facility] ([facility]) Body mass index (BMI) [Ratio] 18.9 kg/m2 18.9 k g/m2 [facility] ([facility]) Systolic blood pressure 127 mm[Hg] 127 mm[Hg] [facility] Body weight 1926.4 [oz_av] 1926.4 [oz_av] ATHEN A ([facility]) Diastolic blood pressure 81 mm[Hg] 81 mm[Hg] [facility] ([facility]) Body height 67 [in_i] 67 [in_i] [facility] ([facility]) Body mass index (BMI) [Ratio] 18.9 kg/m2 18.9 k g/m2 [facility] ([facility]) Systolic blood pressure 127 mm[Hg] 127 mm[Hg] A THENA ([facility]) Body weight 1926.4 [oz_av] 1926.4 [oz_av] ATHEN A ([facility]) Diastolic blood pressure 81 mm[Hg] 81 mm[Hg] [facility] ([facility]) Body height 67 [in_i] 67 [in_i] [facility] ([facility]) Body mass index (BMI) [Ratio] 18.9 kg/m2 18.9 k g/m2 [facility] ([facility]) Systolic blood pressure 127 mm[Hg] 127 mm[Hg] A THENA ([facility]) Body weight 1926.4 [oz_av] 1926.4 [oz_av] ATHEN A ([facility]) Diastolic blood pressure 81 mm[Hg] 81 mm[Hg] [facility] ([facility]) Body height 67 [in_i] 67 [in_i] [facility] ([facility]) Body mass index (BMI) [Ratio] 18.9 kg/m2 18.9 k g/m2 [facility] ([facility]) Systolic blood pressure 127 mm[Hg] 127 mm[Hg] Chandrakant PRAKASH ([facility]) Body weight 1926.4 [oz_av] 1926.4 [oz_av] LISA Stallings ([facility]) Patient Treatment Plan of Care Planned Activity Planned Date Details Description Data Source (s) Cyclobenzaprine hydrochloride 10 MG Oral Tablet 04/30/2021 12:00:00 AM EDT [place] ([facility]) Cyclobenzaprine hydrochloride 10 MG Oral Tablet 04/30/2021 12:00:00 AM EDT [facility] ([facility]) Cyclobenzaprine hydrochloride 10 MG Oral Tablet 04/30/2021 12:00:00 AM EDT [facility] ([facility]) azelastine 137 mcg (0.1 %) nasal spray a erosol USE 1 SPRAY EACH NOSTRILTWO TIMES A DAY [facility] ([facility]) atorvastatin 20 MG Oral Tablet [facility] ([facility]) atorvastatin 10 MG Oral Tablet [facility] ([facility]) Adult Probiotic 3 billion cell capsule T indira 1 capsule every day by oral route for 14 days. D[facility] ([facility]) Ergocalciferol [id number] UNT Oral Capsule D[facility] ([facility]) terbinafine 250 MG Oral Tablet [facility] ([facility]) Prednisone 20 MG Oral Tablet [facility] ([facility]) Nicotine 4 MG/ACTUAT Inhalant Solution [Nicotrol] [facility] ([facility]) Naltrexone hydrochloride 50 MG Oral Tablet [facility] ([facility]) Levofloxacin 750 MG Oral Tablet [facility] ([facility]) doxycycline hyclate 100 MG Oral Tablet [facility] ([facility]) doxycycline hyclate 100 MG Oral Capsule [facility] ([facility]) Clindamycin 300 MG Oral Capsule [facility] ([facility]) ciclopirox 80 MG/ML Topical Solution D[facility] ([facility]) cetirizine hydrochloride 10 MG Oral Tablet [facility] ([facility]) Acetaminophen 300 MG / butalbital 50 MG / Caffeine 40 MG Oral Capsu le DION ([facility]) azelastine 137 mcg (0.1 %) nasal spray a erosol USE 1 SPRAY EACH NOSTRILTWO TIMES A DAY [facility] ([facility]) atorvastatin 20 MG Oral Tablet [facility] ([facility]) atorvastatin 10 MG Oral Tablet [facility] ([facility]) Adult Probiotic 3 billion cell capsule T indira 1 capsule every day by oral route for 14 days. DION ([facility]) Ergocalciferol [id number] UNT Oral Capsule D[facility] ([facility]) terbinafine 250 MG Oral Tablet [facility] ([facility]) Prednisone 20 MG Oral Tablet [facility] ([facility]) Nicotine 4 MG/ACTUAT Inhalant Solution [Nicotrol] [facility] ([facility]) Levofloxacin 750 MG Oral Tablet [facility] ([facility]) doxycycline hyclate 100 MG Oral Tablet D[facility] ([facility]) doxycycline hyclate 100 MG Oral Capsule D[facility] ([facility]) Clindamycin 300 MG Oral Capsule [facility] ([facility]) ciclopirox 80 MG/ML Topical Solution DION ([facility]) cetirizine hydrochloride 10 MG Oral Tablet D[facility] ([facility]) Acetaminophen 300 MG / butalbital 50 MG / Caffeine 40 MG Oral Capsu le DION ([facility]) azelastine 137 mcg (0.1 %) nasal spray a erosol USE 1 SPRAY EACH NOSTRILTWO TIMES A DAY [facility] ([facility]) atorvastatin 20 MG Oral Tablet [facility] ([facility]) atorvastatin 10 MG Oral Tablet [facility] ([facility]) Adult Probiotic 3 billion cell capsule T indira 1 capsule every day by oral route for 14 days. D[facility] ([facility]) Ergocalciferol [id number] UNT Oral Capsule DION ([facility]) terbinafine 250 MG Oral Tablet [facility] ([facility]) Prednisone 20 MG Oral Tablet [facility] ([facility]) Nicotine 4 MG/ACTUAT Inhalant Solution [Nicotrol] [facility] ([facility]) Levofloxacin 750 MG Oral Tablet [facility] ([facility]) doxycycline hyclate 100 MG Oral Tablet D[facility] ([facility]) doxycycline hyclate 100 MG Oral Capsule D[facility] ([facility]) Clindamycin 300 MG Oral Capsule [facility] ([facility]) ciclopirox 80 MG/ML Topical Solution DION ([facility]) cetirizine hydrochloride 10 MG Oral Tablet [facility] ([facility]) Acetaminophen 300 MG / butalbital 50 MG / Caffeine 40 MG Oral Capsu le DION ([facility]) atorvastatin 20 MG Oral Tablet [facility] ([facility]) atorvastatin 10 MG Oral Tablet [facility] ([facility]) Adult Probiotic 3 billion cell capsule T indira 1 capsule every day by oral route for 14 days. D[facility] ([facility]) Ergocalciferol [id number] UNT Oral Capsule D[facility] ([facility]) terbinafine 250 MG Oral Tablet [facility] ([facility]) Prednisone 20 MG Oral Tablet [facility] ([facility]) Nicotine 4 MG/ACTUAT Inhalant Solution [Nicotrol] [facility] ([facility]) Levofloxacin 750 MG Oral Tablet [facility] ([facility]) doxycycline hyclate 100 MG Oral Tablet [facility] ([facility]) doxycycline hyclate 100 MG Oral Capsule [facility] ([facility]) Clindamycin 300 MG Oral Capsule [facility] ([facility]) ciclopirox 80 MG/ML Topical Solution D[facility] ([facility]) cetirizine hydrochloride 10 MG Oral Tablet [facility] ([facility]) Acetaminophen 300 MG / butalbital 50 MG / Caffeine 40 MG Oral Capsu le DION ([facility]) atorvastatin 20 MG Oral Tablet [facility] ([facility]) atorvastatin 10 MG Oral Tablet [facility] ([facility]) Ergocalciferol [id number] UNT Oral Capsule [facility] ([facility]) terbinafine 250 MG Oral Tablet [facility] ([facility]) Prednisone 20 MG Oral Tablet [facility] ([facility]) Nicotine 4 MG/ACTUAT Inhalant Solution [Nicotrol] [facility] ([facility]) Levofloxacin 750 MG Oral Tablet [facility] ([facility]) doxycycline hyclate 100 MG Oral Tablet [facility] ([facility]) doxycycline hyclate 100 MG Oral Capsule [facility] ([facility]) Clindamycin 300 MG Oral Capsule [facility] ([facility]) ciclopirox 80 MG/ML Topical Solution D[facility] ([facility]) cetirizine hydrochloride 10 MG Oral Tablet [facility] ([facility]) Acetaminophen 300 MG / butalbital 50 MG / Caffeine 40 MG Oral Capsu le [facility] ([facility]) atorvastatin 20 MG Oral Tablet [facility] ([facility]) atorvastatin 10 MG Oral Tablet [facility] ([facility]) Ergocalciferol [id number] UNT Oral Capsule [facility] ([facility]) terbinafine 250 MG Oral Tablet [facility] ([facility]) Prednisone 20 MG Oral Tablet [facility] ([facility]) Nicotine 4 MG/ACTUAT Inhalant Solution [Nicotrol] [facility] ([facility]) doxycycline hyclate 100 MG Oral Tablet [facility] ([facility]) doxycycline hyclate 100 MG Oral Capsule [facility] ([facility]) Clindamycin 300 MG Oral Capsule [facility] ([facility]) ciclopirox 80 MG/ML Topical Solution D[facility] ([facility]) Acetaminophen 300 MG / butalbital 50 MG / Caffeine 40 MG Oral Capsu le [facility] ([facility]) atorvastatin 20 MG Oral Tablet [facility] ([facility]) atorvastatin 10 MG Oral Tablet [facility] ([facility]) albuterol sulfate HFA 90 mcg/actuation a erosol inhaler INHALE 2 PUFFS FOUR TIMES A DAY NEEDED FOR FOR SHORTNESS OF BREATH [facility] ([facility]) Ergocalciferol [id number] UNT Oral Capsule [facility] ([facility]) terbinafine 250 MG Oral Tablet [facility] ([facility]) Prednisone 20 MG Oral Tablet [facility] ([facility]) Nicotine 4 MG/ACTUAT Inhalant Solution [Nicotrol] [facility] ([facility]) Naltrexone hydrochloride 50 MG Oral Tablet [facility] ([facility]) Levofloxacin 750 MG Oral Tablet [facility] ([facility]) doxycycline hyclate 100 MG Oral Tablet [facility] ([facility]) doxycycline hyclate 100 MG Oral Capsule [facility] ([facility]) Clindamycin 300 MG Oral Capsule [facility] ([facility]) ciclopirox 80 MG/ML Topical Solution D[facility] ([facility]) cetirizine hydrochloride 10 MG Oral Tablet [facility] ([facility]) Acetaminophen 300 MG / butalbital 50 MG / Caffeine 40 MG Oral Capsu le [facility]ION ([facility])
--- OUTSIDE RECORDS SUMMARY | 2021-06-14 18:40 | CCD ---
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 If you continue you may have access to information: Regarding HIV / AIDS; Provided by facilities licensed or operated by the [facility] Office of Mental Health; or Provided by the [facility] Office for People With Developmental Disabilities. If such information is present, then the following [facility] mandated warning applies: This information has been [...] law may result in a fine or assisted sentence or both. A general authorization for the release of medical or other information is NOT sufficient authorization for further disc losure. Allergies and Adverse Reactions Type Description Substance Reaction Status Data Source(s ) Allergy to substance Allergy to substance Nicotine [facility] ([facility]) Allergy to substance Allergy to substance Nicotine [facility] ([facility]) Allergy to substance Allergy to substance Nicotine [facility] ([facility]) Allergy to substance Allergy to substance Nicotine [facility] ([facility]) Family History Family Member Name Family Member Gender Family Member Status Date o f Status Description Data Source(s) Unknown Unknown Problem MEDENT ([facility]) Unknown Unknown Problem MEDENT ([facility]) mother Unknown Unknown Problem MEDENT (Josue Patel MD, ) Encounters Encounter Providers Location Date Indications Data Source(s ) Michael Pedersen RPA-C: [address], [place] [address], Ph. Attender: MICHAEL PEDERSEN RPA-C [facility] 06/13/2021 12:00:00 AM EST [facility] ([facility]) Michael Pedersen RPA-C: [address], [place] [address], Ph. Attender: MICHAEL FARRC [facility] 06/12/2021 12:00:00 AM EST [facility] ([facility]) Michael Pedersen RPA-C: [address], [place] [address], Ph. Attender: MICHAEL FARRC [facility] 06/12/2021 12:00:00 AM EST [facility] ([facility]) Michael Pedersen RPA-C: [address], [place] [address], Ph. Attender: MICHAEL PEDERSEN RPA-C [facility] 06/10/2021 12:00:00 AM EST [facility] ([facility]) Michael Pedersen RPA-C: [address], [place] [address], Ph. Attender: MICHAEL PEDERSEN RPA-C [facility] 06/10/2021 12:00:00 AM EST [facility] ([facility]) Michael Pedersen, RPA-C: [address], [place] [address], Ph. Attender: MICHAEL PEDERSEN RPA-C [facility] 04/30/2021 12:00:00 AM EDT [facility] ([facility]) Michael Pedersen, RPA-C: [address], [place] [address], Ph. Attender: MICHAEL PEDERSEN RPA-C [facility] 04/30/2021 12:00:00 AM EDT [facility] ([facility]) Michale Pedersen, RPA-C: [address], [place] [address], Ph. Attender: MICHAEL PEDERSEN RPA-C [facility] 04/30/2021 12:00:00 AM EDT [facility] ([facility]) Michael Pedersen, RPA-C: [address], [place] [address], Ph. Attender: MICHAEL PEDERSEN RPA-C [facility] 01/08/2021 12:00:00 AM EDT [facility] ([facility]) Michael Pedersen, RPA-C: [address], [place] [address], Ph. Attender: MICHAEL PEDERSEN RPA-C [facility] 01/08/2021 12:00:00 AM EDT [facility] ([facility]) Michael Pedersen, RPA-C: [address], [place] [address], Ph. Attender: MICHAEL PEDERSEN RPA-C [facility] 01/08/2021 12:00:00 AM EDT [facility] ([facility]) CHIKA AdamsC: [address], [place] [address], Ph. Attender: MICHAEL PEDERSEN RPA-C [facility] 01/08/2021 12:00:00 AM EDT [facility] ([facility]) Justo Gagnon MD: [address], [place] [address], Ph. Attender: Justo Gagnon MD [facility] Medical 10/09/2020 12:00:00 AM EDT [facility] ([facility]) Justo Gagnon MD: [address], [address], [place] [address], Ph. Attender: Justo Gagnon MD [facility] Medical 10/09/2020 12:00:00 AM EDT [facility] ([facility]) Justo Gagnon MD: [address], [place] [address], Ph. Attender: Justo Gagnon MD [facility] Medical 10/09/2020 12:00:00 AM EDT [facility] ([facility]) Justo Gagnon MD: [address], [address], [place] [address], Ph. Attender: Justo Gagnon MD [facility] Medical 10/09/2020 12:00:00 AM EDT [facility] ([facility]) Justo Gagnon MD: [address], [address], [place] [address], Ph. Attender: Justo Gagnon MD [facility] Medical 10/09/2020 12:00:00 AM EDT [facility] ([facility]) Outpatient 10/01/2020 08:01:06 AM EST - 021 08:11:44 AM EST Docu[facility]ap ([facility]) Paty Corona PA-C: [address], [place] [address], Ph. Attender: Paty MALHOTRA [facility] Medical 09/05/2020 12:00:00 AM EST [facility] ([facility]) Paty Corona PA-C: [address], [place] [address], Ph. Attender: Paty MALHOTRA [facility] Medical 09/05/2020 12:00:00 AM EST [facility] ([facility]) Paty Corona PA-C: [address], [place] [address], Ph. Attender: Paty MALHOTRA [facility] Medical 09/05/2020 12:00:00 AM EST [facility] ([facility]) Paty Corona PA-C: [address], [place] [address], Ph. Attender: Paty MALHOTRA [facility] Medical 09/05/2020 12:00:00 AM EST [facility] ([facility]) Paty Corona PA-C: [address], [place] [address], Ph. Attender: Paty MALHOTRA [facility] Medical 09/05/2020 12:00:00 AM EST [facility] ([facility]) Paty Corona PA-C: [address], [place] [address], Ph. Attender: Paty MALHOTRA [facility] Medical 09/05/2020 12:00:00 AM EST [facility] ([facility]) Justo Gagnon MD: [address], [place] [address], Ph. Attender: Justo Gagnon MD [facility] Medical 08/21/2020 12:00:00 AM EST [facility] ([facility]) Justo Gagnon MD: [address], [address], [place] [address], Ph. Attender: Justo Gagnon MD [facility] Medical 08/21/2020 12:00:00 AM EST [facility] ([facility]) Justo Gagnon MD: [address], [place] [address], Ph. Attender: Justo Gagnon MD [facility] Medical 08/21/2020 12:00:00 AM EST [facility] ([facility]) Justo Gagnon MD: [address], [address], [place] [address], Ph. Attender: Justo Gagnon MD [facility] Medical 08/21/2020 12:00:00 AM EST [facility] ([facility]) Justo Gagnon MD: [address], [place] [address], Ph. Attender: Justo Gagnon MD [facility] Medical 08/21/2020 12:00:00 AM EST [facility] ([facility]) Justo Gagnon MD: [address], [place] [address], Ph. Attender: Justo Gagnon MD [facility] Medical 08/21/2020 12:00:00 AM EST [facility] ([facility]) Michael Pedersen RPA-C: [address], [place] [address], Ph. Attender: MICHAEL PEDERSEN RPA-C [facility] 06/07/2020 12:00:00 AM EST [facility] ([facility]) Michael Pedersen, RPA-C: [address], [place] [address], Ph. Attender: MICHAEL PEDERSEN RPA-C [facility] 06/07/2020 12:00:00 AM EST [facility] ([facility]) Michael Pedersen RPA-C: [address], [place] [address], Ph. Attender: MICHAEL PEDERSEN RPA-C [facility] 06/07/2020 12:00:00 AM EST [facility] ([facility]) Michael Pedersen RPA-C: [address], [place] [address], Ph. Attender: MICHAEL PEDERSEN RPA-C [facility] 06/07/2020 12:00:00 AM EST [facility] ([facility]) Michael Pedersen, RPA-C: [address], [place] [address], Ph. Attender: MICHAEL PEDERSEN RPA-C [facility] 06/07/2020 12:00:00 AM EST [facility] ([facility]) Michael Pedersen RPA-C: [address], [place] [address], Ph. Attender: MICHAEL PEDERSEN RPA-C [facility] 06/07/2020 12:00:00 AM YEN ASHLEY ([facility]) Michael ePdersen, RPA-C: [address], [place] [address], Ph. Attender: MICHAEL PEDERSEN RPA-C [facility] 06/07/2020 12:00:00 AM YEN ASHLEY ([facility]) Outpatient Attender: MICHAEL PEDERSEN RPA-C [facility] 05/08/2020 09:09:02 AM EDT [facility] Outpatient Attender: MICHAEL PEDERSEN RPA-C [facility] 05/08/2020 09:09:02 AM EDT [facility] Outpatient Attender: MICHAEL PEDERSEN RPA-C [facility] 04/25/2020 04:11:02 PM EDT [facility] Outpatient Attender: MICHAEL PEDERSEN RPA-C [facility] 04/25/2020 04:11:00 PM EDT [facility] Outpatient Attender: MICHAEL PEDERSEN RPA-C [facility] 04/23/2020 02:21:03 PM EDT [facility] Outpatient Attender: MICHAEL PEDERSEN RPA-C C 04/16/2020 12:08:59 PM EDT [facility] Immunizations Vaccine Date Status Description Data Source(s) Tdap 04/30/2021 01:54:00 PM EDT completed 04/30/2021 0.5 mL [facility] ([facility]) Tdap 04/30/2021 01:54:00 PM EDT completed 04/30/2021 0.5 mL [facility] ([facility]) Tdap 04/30/2021 01:54:00 PM EDT completed 04/30/2021 0.5 mL [facility] ([facility]) COVID-19, mRNA, LNP-S, PF, 100 mcg/0.5 mL dose (Modern a) 04/22/2021 12:00:00 AM EDT completed 04/22/2021 [place] ([facility]) COVID-19, mRNA, LNP-S, PF, 100 mcg/0.5 mL dose (Modern a) 04/22/2021 12:00:00 AM EDT completed 04/22/2021 [place] ([facility]) COVID-19, mRNA, LNP-S, PF, 100 mcg/0.5 mL dose 04/22/2021 12 :00:00 AM EDT completed 04/22/2021 [place] ([facility]) COVID-19 VACCINE Moderna 04/22/2021 12:00:00 AM EDT completed [facility] Vaccine Series Complete: NOThis Data was Submitted to [facility] Via [employer]. Medications Medication Brand Name Start Date Product Form Dose Route Admi nistrative Instructions Pharmacy Instructions Status Indications Reaction Description Data Source(s) Cyclobenzaprine hydrochloride 10 MG Oral Tablet cyclob enzaprine 10 mg tablet cyclobenzaprine 10 mg tablet 04/30/2021 12:00:00 AM EDT completed cyclobenzaprine hydrochloride 10 MG Oral Tablet [facility]) Cyclobenzaprine hydrochloride 10 MG Oral Tablet cyclob enzaprine 10 mg tablet cyclobenzaprine 10 mg tablet 04/30/2021 12:00:00 AM EDT completed cyclobenzaprine hydrochloride 10 MG Oral Tablet [facility]) Cyclobenzaprine hydrochloride 10 MG Oral Tablet cyclob enzaprine 10 mg tablet cyclobenzaprine 10 mg tablet 04/30/2021 12:00:00 AM EDT completed cyclobenzaprine hydrochloride 10 MG Oral Tablet [facility]) atorvastatin 10 MG Oral Tablet atorvastatin 10 mg tabl et atorvastatin 10 mg tablet completed atorvastatin 10 MG Oral Tablet [facility]) Levofloxacin 750 MG Oral Tablet levoflox acin 750 mg tablet TAKE ONE TABLET BY MOUTH EVERY DAY levofloxacin 750 mg tablet TAKE ONE TABLET BY MOUTH EVERY DA Y completed levofloxacin 7 50 MG Oral Tablet [facility]) Clindamycin 300 MG Oral Capsule clindamycin HCl 300 mg capsule clindamycin HCl 300 mg capsule completed clindam ycin 300 MG Oral Capsule [facility]) Ergocalciferol 59295 UNT Oral Capsule Vi tamin D2 1,250 mcg (50,000 unit) capsule TAKE ONE CAPSULE BY MOUTH ONCE WEEKLY Vitamin D2 1,250 mcg (50,000 unit) capsu le TAKE ONE CAPSULE BY MOUTH ONCE WEEKLY completed ergocalciferol 1.25 MG Oral Capsule [facility] ([facility]) cetirizine hydrochloride 10 MG Oral Tabl et cetirizine 10 mg tablet TAKE ONE TABLET BY MOUTH EVERY DAY cetirizine 10 mg tablet TAKE ONE TABLET BY MOUTH EVERY DAY completed cetirizine hydro chloride 10 MG Oral Tablet [facility] ([facility]) doxycycline hyclate 100 MG Oral Tablet d oxycycline hyclate 100 mg tablet TAKE ONE TABLET BY MOUTH TWICE A DAY FOR 14 DAYS doxycycline hyclate 100 mg tablet TAKE ONE TABLET BY MOUTH TWICE A DAY FOR 14 DAYS completed doxycycline hyclate 100 MG Oral Tablet [facility] ([facility]) atorvastatin 10 MG Oral Tablet atorvastatin 10 mg tabl et atorvastatin 10 mg tablet completed atorvastatin 10 MG Oral Tablet [facility] ([facility]) Ergocalciferol 55827 UNT Oral Capsule Vi tamin D2 1,250 mcg (50,000 unit) capsule TAKE ONE CAPSULE BY MOUTH ONCE WEEKLY Vitamin D2 1,250 mcg (50,000 unit) capsu le TAKE ONE CAPSULE BY MOUTH ONCE WEEKLY completed ergocalciferol 1.25 MG Oral Capsule [facility] ([facility]) azelastine 137 mcg (0.1 %) nasal spray a erosol USE 1 SPRAY EACH NOSTRILTWO TIMES A DAY [id number] completed azelastin e hydrochloride 0.137 MG/ACTUAT Metered Dose Nasal [place] [facility] ([facility]) cetirizine hydrochloride 10 MG Oral Tabl et cetirizine 10 mg tablet TAKE ONE TABLET BY MOUTH EVERY DAY cetirizine 10 mg tablet TAKE ONE TABLET BY MOUTH EVERY DAY completed cetirizine hydro chloride 10 MG Oral Tablet [facility] ([facility]) Acetaminophen 300 MG / butalbital 50 MG / Caffeine 40 MG Oral Capsule httyaqtobd-ssouojieggqzs-xvmnswsy 50 mg-300 mg-40 mg capsule TAKE 1 TABLET BY MOUTH THREE TIMES A DAY NEEDED FOR HEADACHE giynoqgjiy-lkofxbznmoikj-asozskfr 50 mg-300 mg-40 mg capsule TAKE 1 TABLET BY MOUTH THREE TIMES A DAY NEEDED FOR HEADACHE completed a cetaminophen 300 MG / butalbital 50 MG / caffeine 40 MG Oral Capsule [facility] ([facility]) azelastine 137 mcg (0.1 %) nasal spray a erosol USE 1 SPRAY EACH NOSTRILTWO TIMES A DAY [id number] completed azelastin e hydrochloride 0.137 MG/ACTUAT Metered Dose Nasal [place] ([facility]) cetirizine hydrochloride 10 MG Oral Tabl et cetirizine 10 mg tablet TAKE ONE TABLET BY MOUTH EVERY DAY cetirizine 10 mg tablet TAKE ONE TABLET BY MOUTH EVERY DAY completed cetirizine hydro chloride 10 MG Oral Tablet [facility] ([facility]) cetirizine hydrochloride 10 MG Oral Tabl et cetirizine 10 mg tablet TAKE ONE TABLET BY MOUTH EVERY DAY cetirizine 10 mg tablet TAKE ONE TABLET BY MOUTH EVERY DAY completed cetirizine hydro chloride 10 MG Oral Tablet [place] ([facility]) Nicotine 4 MG/ACTUAT Inhalant Solution [ Nicotrol] Nicotrol 10 mg inhalation cartridge INHALE ONE PUFF BY MOUTH UP TO 16 TIMES DAILY Nicotrol 10 mg inhalation cartridge INHALE ONE PUFF BY MOUTH UP TO 16 TIMES DAILY completed nicotine 4 MG Inhalation Solutio n [Nicotrol] [place] ([facility]) atorvastatin 10 MG Oral Tablet atorvastatin 10 mg tabl et atorvastatin 10 mg tablet completed atorvastatin 10 MG Oral Tablet [place] ([facility]) Ergocalciferol 74274 UNT Oral Capsule Vi tamin D2 1,250 mcg (50,000 unit) capsule TAKE ONE CAPSULE BY MOUTH ONCE WEEKLY Vitamin D2 1,250 mcg (50,000 unit) capsule TAKE ONE CAPSULE BY MOUTH ONCE WEEKLY completed ergocalciferol 1.25 MG Oral Capsule [place] ([facility]) terbinafine 250 MG Oral Tablet terbinafi ne HCl 250 mg tablet TAKE 1 TABLET BY MOUTH DAILY terbinafine HCl 250 mg tablet TAKE 1 TABLET BY MOUTH DAILY completed terbinafine 250 MG Oral T ablet [place] ([facility]) Levofloxacin 750 MG Oral Tablet levoflox acin 750 mg tablet TAKE ONE TABLET BY MOUTH EVERY DAY levofloxacin 750 mg tablet TAKE ONE TABLET BY MOUTH EVERY DA Y completed levofloxacin 7 50 MG Oral Tablet [place] ([facility]) Adult Probiotic 3 billion cell capsule T indira 1 capsule every day by oral route for 14 days. 158267 1 capsule(s) completed Adult Probiotic 3 billion cell capsule [facility] ([facility]) atorvastatin 20 MG Oral Tablet atorvastatin 20 mg tabl et atorvastatin 20 mg tablet completed atorvastatin 20 MG Oral Tablet [facility] ([facility]) Levofloxacin 750 MG Oral Tablet levoflox acin 750 mg tablet TAKE ONE TABLET BY MOUTH EVERY DAY levofloxacin 750 mg tablet TAKE ONE TABLET BY MOUTH EVERY DA Y completed levofloxacin 7 50 MG Oral Tablet [place] ([facility]) Naltrexone hydrochloride 50 MG Oral Tabl et naltrexone 50 mg tablet TAKE ONE TABLET BY MOUTH EVERY DAY naltrexone 50 mg tablet TAKE ONE TABLET BY MOUTH EVERY DAY completed naltrexone hydro chloride 50 MG Oral Tablet [place] ([facility]) azelastine 137 mcg (0.1 %) nasal spray a erosol USE 1 SPRAY EACH NOSTRILTWO TIMES A DAY [id number] completed azelasti ne hydrochloride 0.137 MG/ACTUAT Metered Dose Nasal [place] ([facility]) Clindamycin 300 MG Oral Capsule clindamy francois HCl 300 mg capsule TAKE ONE CAPSULE BY MOUTH EVERY 6 HOURS UNTIL FINISHED clindamycin HCl 300 mg capsule TAKE ONE CAPSULE BY MOUTH EVERY 6 HOURS UNTIL FINISHED completed clindamycin 300 MG Oral Capsule [place] ([facility]) terbinafine 250 MG Oral Tablet terbinafi ne HCl 250 mg tablet TAKE 1 TABLET BY MOUTH DAILY terbinafine HCl 250 mg tablet TAKE 1 TABLET BY MOUTH DAILY completed terbinafine 250 MG Oral T ablet [place] ([facility]) atorvastatin 20 MG Oral Tablet atorvastatin 20 mg tabl et atorvastatin 20 mg tablet completed atorvastatin 20 MG Oral Tablet [place] ([facility]) doxycycline hyclate 100 MG Oral Capsule doxycycline hyclate 100 mg capsule TAKE ONE CAPSULE BY MOUTH TWICE A DAY FOR 10 DAYS doxycycline hyclate 100 mg capsule TAKE ONE CAPSULE BY MOUTH TWICE A DAY FOR 10 DAYS completed doxycycline hyclate 100 MG Oral Capsule [place] ([facility]) Prednisone 20 MG Oral Tablet prednisone 20 mg tablet TAKE ONE TABLET BY MOUTH TWICE A DAY FOR 5 DAYS prednisone 20 mg tablet TAKE ONE TABLET BY MOUTH TWICE A DAY FOR 5 DAYS completed prednis one 20 MG Oral Tablet [place] ([facility]) Acetaminophen 300 MG / butalbital 50 MG / Caffeine 40 MG Oral Capsule kcnzadcunb-gnuecujmrkcen-wrrqdshx 50 mg-300 mg-40 mg capsule TAKE 1 TABLET BY MOUTH THREE TIMES A DAY NEEDED FOR HEADACHE huvxwsizpj-yslfuuwprmvup-curlwxcj 50 mg-300 mg-40 mg capsule TAKE 1 TABLET BY MOUTH THREE TIMES A DAY NEEDED FOR HEADACHE completed a cetaminophen 300 MG / butalbital 50 MG / caffeine 40 MG Oral Capsule [place] [facility]) Prednisone 20 MG Oral Tablet prednisone 20 mg tablet TAKE ONE TABLET BY MOUTH TWICE A DAY FOR 5 DAYS prednisone 20 mg tablet TAKE ONE TABLET BY MOUTH TWICE A DAY FOR 5 DAYS completed prednis one 20 MG Oral Tablet [place] ([facility]) albuterol sulfate HFA 90 mcg/actuation a erosol inhaler INHALE 2 PUFFS FOUR TIMES A DAY NEEDED FOR FOR SHORTNESS OF BREATH [id number] completed [id number] 200 ACTUAT albuterol 0.09 MG/ACTUAT Metered Dose Inhaler [place] ([facility]) Clindamycin 300 MG Oral Capsule clindamycin HCl 300 mg capsule clindamycin HCl 300 mg capsule completed clindam ycin 300 MG Oral Capsule [place] ([facility]) Prednisone 20 MG Oral Tablet prednisone 20 mg tablet TAKE ONE TABLET BY MOUTH TWICE A DAY FOR 5 DAYS prednisone 20 mg tablet TAKE ONE TABLET BY MOUTH TWICE A DAY FOR 5 DAYS completed prednis one 20 MG Oral Tablet [place] ([facility]) Nicotine 4 MG/ACTUAT Inhalant Solution [ Nicotrol] Nicotrol 10 mg inhalation cartridge INHALE ONE PUFF BY MOUTH UP TO 16 TIMES DAILY Nicotrol 10 mg inhalation cartridge INHALE ONE PUFF BY MOUTH UP TO 16 TIMES DAILY completed nicotine 4 MG Inhalation Solutio n [Nicotrol] [place] ([facility]) ciclopirox 80 MG/ML Topical Solution cic lopirox 8 % topical solution APPLY LAYER TO AFFECTED NAILS DAILY FOR 7 DAYS REMOVE WITH RUBBING ALCOHOL AND REPEAT UNTIL SYMPTOMS ARE GONE ciclopirox 8 % topical solution APPLY LA TOBI TO AFFECTED NAILS DAILY FOR 7 DAYS REMOVE WITH RUBBING ALCOHOL AND REPEAT UNTIL SYMPTOMS ARE GONE completed ciclopirox 80 MG /ML Topical Solution [place] ([facility]) Clindamycin 300 MG Oral Capsule clindamy francois HCl 300 mg capsule TAKE ONE CAPSULE BY MOUTH EVERY 6 HOURS UNTIL FINISHED clindamycin HCl 300 mg capsule TAKE ONE CAPSULE BY MOUTH EVERY 6 HOURS UNTIL FINISHED completed clindamycin 300 MG Oral Capsule [place] ([facility]) doxycycline hyclate 100 MG Oral Capsule doxycycline hyclate 100 mg capsule TAKE ONE CAPSULE BY MOUTH TWICE A DAY FOR 10 DAYS doxycycline hyclate 100 mg capsule TAKE ONE CAPSULE BY MOUTH TWICE A DAY FOR 10 DAYS completed doxycycline hyclate 100 MG Oral Capsule [place] ([facility]) Clindamycin 300 MG Oral Capsule clindamy francois HCl 300 mg capsule TAKE ONE CAPSULE BY MOUTH EVERY 6 HOURS UNTIL FINISHED clindamycin HCl 300 mg capsule TAKE ONE CAPSULE BY MOUTH EVERY 6 HOURS UNTIL FINISHED completed clindamycin 300 MG Oral Capsule [facility] ([facility]) terbinafine 250 MG Oral Tablet terbinafi ne HCl 250 mg tablet TAKE 1 TABLET BY MOUTH DAILY terbinafine HCl 250 mg tablet TAKE 1 TABLET BY MOUTH DAILY completed terbinafine 250 MG Oral T ablet [facility] ([facility]) terbinafine 250 MG Oral Tablet terbinafi ne HCl 250 mg tablet TAKE 1 TABLET BY MOUTH DAILY terbinafine HCl 250 mg tablet TAKE 1 TABLET BY MOUTH DAILY completed terbinafine 250 MG Oral T ablet [facility] ([facility]) atorvastatin 20 MG Oral Tablet atorvastatin 20 mg tabl et atorvastatin 20 mg tablet completed atorvastatin 20 MG Oral Tablet [facility] ([facility]) ciclopirox 80 MG/ML Topical Solution cic lopirox 8 % topical solution APPLY LAYER TO AFFECTED NAILS DAILY FOR 7 DAYS REMOVE WITH RUBBING ALCOHOL AND REPEAT UNTIL SYMPTOMS ARE GONE ciclopirox 8 % topical solution APPLY LA TOBI TO AFFECTED NAILS DAILY FOR 7 DAYS REMOVE WITH RUBBING ALCOHOL AND REPEAT UNTIL SYMPTOMS ARE GONE completed ciclopirox 80 MG /ML Topical Solution [facility] ([facility]) ciclopirox 80 MG/ML Topical Solution cic lopirox 8 % topical solution APPLY LAYER TO AFFECTED NAILS DAILY FOR 7 DAYS REMOVE WITH RUBBING ALCOHOL AND REPEAT UNTIL SYMPTOMS ARE GONE ciclopirox 8 % topical solution APPLY LA TOBI TO AFFECTED NAILS DAILY FOR 7 DAYS REMOVE WITH RUBBING ALCOHOL AND REPEAT UNTIL SYMPTOMS ARE GONE completed ciclopirox 80 MG /ML Topical Solution [place] ([facility]) Prednisone 20 MG Oral Tablet prednisone 20 mg tablet TAKE ONE TABLET BY MOUTH TWICE A DAY FOR 5 DAYS prednisone 20 mg tablet TAKE ONE TABLET BY MOUTH TWICE A DAY FOR 5 DAYS completed prednis one 20 MG Oral Tablet [facility] ([facility]) Ergocalciferol 84398 UNT Oral Capsule Vi tamin D2 1,250 mcg (50,000 unit) capsule TAKE ONE CAPSULE BY MOUTH ONCE WEEKLY Vitamin D2 1,250 mcg (50,000 unit) capsule TAKE ONE CAPSULE BY MOUTH ONCE WEEKLY completed ergocalciferol 1.25 MG Oral Capsule [facility] ([facility]) Prednisone 20 MG Oral Tablet prednisone 20 mg tablet TAKE ONE TABLET BY MOUTH TWICE A DAY FOR 5 DAYS prednisone 20 mg tablet TAKE ONE TABLET BY MOUTH TWICE A DAY FOR 5 DAYS completed prednis one 20 MG Oral Tablet [facility] ([facility]) Acetaminophen 300 MG / butalbital 50 MG / Caffeine 40 MG Oral Capsule tishwxskoq-wnnngpuyrkolx-kecqsfmq 50 mg-300 mg-40 mg capsule TAKE 1 TABLET BY MOUTH THREE TIMES A DAY NEEDED FOR HEADACHE wvcvntfepy-quvqcghjhnrvd-ydktmigk 50 mg-300 mg-40 mg capsule TAKE 1 TABLET BY MOUTH THREE TIMES A DAY NEEDED FOR HEADACHE completed a cetaminophen 300 MG / butalbital 50 MG / caffeine 40 MG Oral Capsule [facility] ([facility]) Ergocalciferol 94105 UNT Oral Capsule Vi tamin D2 1,250 mcg (50,000 unit) capsule TAKE ONE CAPSULE BY MOUTH ONCE WEEKLY Vitamin D2 1,250 mcg (50,000 unit) capsule TAKE ONE CAPSULE BY MOUTH ONCE WEEKLY completed ergocalciferol 1.25 MG Oral Capsule [facility] ([facility]) Naltrexone hydrochloride 50 MG Oral Tabl et naltrexone 50 mg tablet TAKE ONE TABLET BY MOUTH EVERY DAY naltrexone 50 mg tablet TAKE ONE TABLET BY MOUTH EVERY DAY completed naltrexone hydro chloride 50 MG Oral Tablet [facility] ([facility]) atorvastatin 10 MG Oral Tablet atorvastatin 10 mg tabl et atorvastatin 10 mg tablet completed atorvastatin 10 MG Oral Tablet [facility] ([facility]) Acetaminophen 300 MG / butalbital 50 MG / Caffeine 40 MG Oral Capsule lfxtgvcjkw-lgqkyrwmhaxjh-fmslubqj 50 mg-300 mg-40 mg capsule TAKE 1 TABLET BY MOUTH THREE TIMES A DAY NEEDED FOR HEADACHE joutaoyltm-wlezhxhsbripz-qmmhlhir 50 mg-300 mg-40 mg capsule TAKE 1 TABLET BY MOUTH THREE TIMES A DAY NEEDED FOR HEADACHE completed a cetaminophen 300 MG / butalbital 50 MG / caffeine 40 MG Oral Capsule [facility] ([facility]) cetirizine hydrochloride 10 MG Oral Tabl et cetirizine 10 mg tablet TAKE ONE TABLET BY MOUTH EVERY DAY cetirizine 10 mg tablet TAKE ONE TABLET BY MOUTH EVERY DAY completed cetirizine hydro chloride 10 MG Oral Tablet [facility] ([facility]) Nicotine 4 MG/ACTUAT Inhalant Solution [ Nicotrol] Nicotrol 10 mg inhalation cartridge INHALE ONE PUFF BY MOUTH UP TO 16 TIMES DAILY Nicotrol 10 mg inhalation cartridge INHALE ONE PUFF BY MOUTH UP TO 16 TIMES DAILY completed nicotine 4 MG Inhalation Solutio n [Nicotrol] [facility] ([facility]) Acetaminophen 300 MG / butalbital 50 MG / Caffeine 40 MG Oral Capsule whpinnlnmj-snvbbhkpokpgu-ihfmqxuk 50 mg-300 mg-40 mg capsule TAKE 1 TABLET BY MOUTH THREE TIMES A DAY NEEDED FOR HEADACHE lkemulrcis-vzwslrritznek-bijmixwq 50 mg-300 mg-40 mg capsule TAKE 1 TABLET BY MOUTH THREE TIMES A DAY NEEDED FOR HEADACHE completed a cetaminophen 300 MG / butalbital 50 MG / caffeine 40 MG Oral Capsule [place] ([facility]) Levofloxacin 750 MG Oral Tablet levoflox acin 750 mg tablet TAKE ONE TABLET BY MOUTH EVERY DAY levofloxacin 750 mg tablet TAKE ONE TABLET BY MOUTH EVERY DA Y completed levofloxacin 7 50 MG Oral Tablet [place] ([facility]) Ergocalciferol 67290 UNT Oral Capsule Vi tamin D2 1,250 mcg (50,000 unit) capsule TAKE ONE CAPSULE BY MOUTH ONCE WEEKLY Vitamin D2 1,250 mcg (50,000 unit) capsule TAKE ONE CAPSULE BY MOUTH ONCE WEEKLY completed ergocalciferol 1.25 MG Oral Capsule [place] ([facility]) Acetaminophen 300 MG / butalbital 50 MG / Caffeine 40 MG Oral Capsule ymyzlutsgi-gromiovudmwzr-byweazmf 50 mg-300 mg-40 mg capsule TAKE 1 TABLET BY MOUTH THREE TIMES A DAY NEEDED FOR HEADACHE visugsknko-aihlfqzxiblck-dsuhgoez 50 mg-300 mg-40 mg capsule TAKE 1 TABLET BY MOUTH THREE TIMES A DAY NEEDED FOR HEADACHE completed a cetaminophen 300 MG / butalbital 50 MG / caffeine 40 MG Oral Capsule [facility] ([facility]) doxycycline hyclate 100 MG Oral Tablet d oxycycline hyclate 100 mg tablet TAKE ONE TABLET BY MOUTH TWICE A DAY FOR 14 DAYS doxycycline hyclate 100 mg tablet TAKE ONE TABLET BY MOUTH TWICE A DAY FOR 14 DAYS completed doxycycline hyclate 100 MG Oral Tablet [facility] ([facility]) cetirizine hydrochloride 10 MG Oral Tabl et cetirizine 10 mg tablet TAKE ONE TABLET BY MOUTH EVERY DAY cetirizine 10 mg tablet TAKE ONE TABLET BY MOUTH EVERY DAY completed cetirizine hydro chloride 10 MG Oral Tablet [facility] ([facility]) Clindamycin 300 MG Oral Capsule clindamycin HCl 300 mg capsule clindamycin HCl 300 mg capsule completed clindam ycin 300 MG Oral Capsule [facility] ([facility]) Ergocalciferol 07834 UNT Oral Capsule Vi tamin D2 1,250 mcg (50,000 unit) capsule TAKE ONE CAPSULE BY MOUTH ONCE WEEKLY Vitamin D2 1,250 mcg (50,000 unit) capsule TAKE ONE CAPSULE BY MOUTH ONCE WEEKLY completed ergocalciferol 1.25 MG Oral Capsule [facility] ([facility]) doxycycline hyclate 100 MG Oral Tablet d oxycycline hyclate 100 mg tablet TAKE ONE TABLET BY MOUTH TWICE A DAY FOR 14 DAYS doxycycline hyclate 100 mg tablet TAKE ONE TABLET BY MOUTH TWICE A DAY FOR 14 DAYS completed doxycycline hyclate 100 MG Oral Tablet [facility] ([facility]) ciclopirox 80 MG/ML Topical Solution cic lopirox 8 % topical solution APPLY LAYER TO AFFECTED NAILS DAILY FOR 7 DAYS REMOVE WITH RUBBING ALCOHOL AND REPEAT UNTIL SYMPTOMS ARE GONE ciclopirox 8 % topical solution APPLY LA TOBI TO AFFECTED NAILS DAILY FOR 7 DAYS REMOVE WITH RUBBING ALCOHOL AND REPEAT UNTIL SYMPTOMS ARE GONE completed ciclopirox 80 MG /ML Topical Solution [facility] ([facility]) ciclopirox 80 MG/ML Topical Solution cic lopirox 8 % topical solution APPLY LAYER TO AFFECTED NAILS DAILY FOR 7 DAYS REMOVE WITH RUBBING ALCOHOL AND REPEAT UNTIL SYMPTOMS ARE GONE ciclopirox 8 % topical solution APPLY LA TOBI TO AFFECTED NAILS DAILY FOR 7 DAYS REMOVE WITH RUBBING ALCOHOL AND REPEAT UNTIL SYMPTOMS ARE GONE completed ciclopirox 80 MG /ML Topical Solution [facility] ([facility]) doxycycline hyclate 100 MG Oral Capsule doxycycline hyclate 100 mg capsule TAKE ONE CAPSULE BY MOUTH TWICE A DAY FOR 10 DAYS doxycycline hyclate 100 mg capsule TAKE ONE CAPSULE BY MOUTH TWICE A DAY FOR 10 DAYS completed doxycycline hyclate 100 MG Oral Capsule [facility] ([facility]) Prednisone 20 MG Oral Tablet prednisone 20 mg tablet TAKE TWO TABLETS BY MOUTH EVERY DAY FOR 5 DAYS prednisone 20 mg tablet TAKE TWO TABLETS BY MOUTH EVERY DAY FOR 5 DAYS completed prednisone 20 MG Oral Tablet [place] ([facility]) Prednisone 20 MG Oral Tablet prednisone 20 mg tablet TAKE ONE TABLET BY MOUTH TWICE A DAY FOR 5 DAYS prednisone 20 mg tablet TAKE ONE TABLET BY MOUTH TWICE A DAY FOR 5 DAYS completed prednis one 20 MG Oral Tablet [place] ([facility]) doxycycline hyclate 100 MG Oral Capsule doxycycline hyclate 100 mg capsule TAKE ONE CAPSULE BY MOUTH TWICE A DAY FOR 10 DAYS doxycycline hyclate 100 mg capsule TAKE ONE CAPSULE BY MOUTH TWICE A DAY FOR 10 DAYS completed doxycycline hyclate 100 MG Oral Capsule [place] ([facility]) doxycycline hyclate 100 MG Oral Capsule doxycycline hyclate 100 mg capsule TAKE ONE CAPSULE BY MOUTH TWICE A DAY FOR 10 DAYS doxycycline hyclate 100 mg capsule TAKE ONE CAPSULE BY MOUTH TWICE A DAY FOR 10 DAYS completed doxycycline hyclate 100 MG Oral Capsule [place] ([facility]) atorvastatin 20 MG Oral Tablet atorvastatin 20 mg tabl et atorvastatin 20 mg tablet completed atorvastatin 20 MG Oral Tablet [place] ([facility]) atorvastatin 20 MG Oral Tablet atorvastatin 20 mg tabl et atorvastatin 20 mg tablet completed atorvastatin 20 MG Oral Tablet [place] ([facility]) doxycycline hyclate 100 MG Oral Tablet d oxycycline hyclate 100 mg tablet TAKE ONE TABLET BY MOUTH TWICE A DAY FOR 14 DAYS doxycycline hyclate 100 mg tablet TAKE ONE TABLET BY MOUTH TWICE A DAY FOR 14 DAYS completed doxycycline hyclate 100 MG Oral Tablet [place] ([facility]) terbinafine 250 MG Oral Tablet terbinafi ne HCl 250 mg tablet TAKE 1 TABLET BY MOUTH DAILY terbinafine HCl 250 mg tablet TAKE 1 TABLET BY MOUTH DAILY completed terbinafine 250 MG Oral T ablet [facility] ([facility]) atorvastatin 20 MG Oral Tablet atorvastatin 20 mg tabl et atorvastatin 20 mg tablet completed atorvastatin 20 MG Oral Tablet [place] ([facility]) Nicotine 4 MG/ACTUAT Inhalant Solution [ Nicotrol] Nicotrol 10 mg inhalation cartridge INHALE ONE PUFF BY MOUTH UP TO 16 TIMES DAILY Nicotrol 10 mg inhalation cartridge INHALE ONE PUFF BY MOUTH UP TO 16 TIMES DAILY completed nicotine 4 MG Inhalation Solutio n [Nicotrol] [facility] ([facility]) ciclopirox 80 MG/ML Topical Solution cic lopirox 8 % topical solution APPLY LAYER TO AFFECTED NAILS DAILY FOR 7 DAYS REMOVE WITH RUBBING ALCOHOL AND REPEAT UNTIL SYMPTOMS ARE GONE ciclopirox 8 % topical solution APPLY LA TOBI TO AFFECTED NAILS DAILY FOR 7 DAYS REMOVE WITH RUBBING ALCOHOL AND REPEAT UNTIL SYMPTOMS ARE GONE completed ciclopirox 80 MG /ML Topical Solution [facility] ([facility]) doxycycline hyclate 100 MG Oral Tablet d oxycycline hyclate 100 mg tablet TAKE ONE TABLET BY MOUTH TWICE A DAY FOR 14 DAYS doxycycline hyclate 100 mg tablet TAKE ONE TABLET BY MOUTH TWICE A DAY FOR 14 DAYS completed doxycycline hyclate 100 MG Oral Tablet [facility] ([facility]) terbinafine 250 MG Oral Tablet terbinafi ne HCl 250 mg tablet TAKE 1 TABLET BY MOUTH DAILY terbinafine HCl 250 mg tablet TAKE 1 TABLET BY MOUTH DAILY completed terbinafine 250 MG Oral T ablet [facility] ([facility]) Adult Probiotic 3 billion cell capsule T indira 1 capsule every day by oral route for 14 days. [id number] 1 capsule(s) completed Adult Probiotic 3 billion cell capsule [facility] ([facility]) atorvastatin 20 MG Oral Tablet atorvastatin 20 mg tabl et atorvastatin 20 mg tablet completed atorvastatin 20 MG Oral Tablet [facility] ([facility]) Adult Probiotic 3 billion cell capsule T indira 1 capsule every day by oral route for 14 days. 654614 1 capsule(s) completed Adult Probiotic 3 billion cell capsule [facility] ([facility]) doxycycline hyclate 100 MG Oral Tablet d oxycycline hyclate 100 mg tablet TAKE ONE TABLET BY MOUTH TWICE A DAY FOR 14 DAYS doxycycline hyclate 100 mg tablet TAKE ONE TABLET BY MOUTH TWICE A DAY FOR 14 DAYS completed doxycycline hyclate 100 MG Oral Tablet [facility] ([facility]) atorvastatin 10 MG Oral Tablet atorvastatin 10 mg tabl et atorvastatin 10 mg tablet completed atorvastatin 10 MG Oral Tablet [facility] ([facility]) Adult Probiotic 3 billion cell capsule T indira 1 capsule every day by oral route for 14 days. 889701 1 capsule(s) completed Adult Probiotic 3 billion cell capsule [facility] ([facility]) doxycycline hyclate 100 MG Oral Capsule doxycycline hyclate 100 mg capsule TAKE ONE CAPSULE BY MOUTH TWICE A DAY FOR 10 DAYS doxycycline hyclate 100 mg capsule TAKE ONE CAPSULE BY MOUTH TWICE A DAY FOR 10 DAYS completed doxycycline hyclate 100 MG Oral Capsule [place] ([facility]) Nicotine 4 MG/ACTUAT Inhalant Solution [ Nicotrol] Nicotrol 10 mg inhalation cartridge INHALE ONE PUFF BY MOUTH UP TO 16 TIMES DAILY Nicotrol 10 mg inhalation cartridge INHALE ONE PUFF BY MOUTH UP TO 16 TIMES DAILY completed nicotine 4 MG Inhalation Solutio n [Nicotrol] [place] ([facility]) terbinafine 250 MG Oral Tablet terbinafi ne HCl 250 mg tablet TAKE 1 TABLET BY MOUTH DAILY terbinafine HCl 250 mg tablet TAKE 1 TABLET BY MOUTH DAILY completed terbinafine 250 MG Oral T ablet [facility]) Nicotine 4 MG/ACTUAT Inhalant Solution [ Nicotrol] Nicotrol 10 mg inhalation cartridge INHALE ONE PUFF BY MOUTH UP TO 16 TIMES DAILY Nicotrol 10 mg inhalation cartridge INHALE ONE PUFF BY MOUTH UP TO 16 TIMES DAILY completed nicotine 4 MG Inhalation Solutio n [Nicotrol] [place] ([facility]) Levofloxacin 750 MG Oral Tablet levoflox acin 750 mg tablet TAKE ONE TABLET BY MOUTH EVERY DAY levofloxacin 750 mg tablet TAKE ONE TABLET BY MOUTH EVERY DA Y completed levofloxacin 7 50 MG Oral Tablet [facility]) ciclopirox 80 MG/ML Topical [...] completed ciclopirox 80 MG /ML Topical Solution [place] ([facility]) atorvastatin 10 MG Oral Tablet atorvastatin 10 mg tabl et atorvastatin 10 mg tablet completed atorvastatin 10 MG Oral Tablet [place] ([facility]) Levofloxacin 750 MG Oral Tablet levoflox acin 750 mg tablet TAKE ONE TABLET BY MOUTH EVERY DAY levofloxacin 750 mg tablet TAKE ONE TABLET BY MOUTH EVERY DA Y completed levofloxacin 7 50 MG Oral Tablet [place] ([facility]) Clindamycin 300 MG Oral Capsule clindamy francois HCl 300 mg capsule TAKE ONE CAPSULE BY MOUTH EVERY 6 HOURS UNTIL FINISHED clindamycin HCl 300 mg capsule TAKE ONE CAPSULE BY MOUTH EVERY 6 HOURS UNTIL FINISHED completed clindamycin 300 MG Oral Capsule [facility] ([facility]) Nicotine 4 MG/ACTUAT Inhalant Solution [ Nicotrol] Nicotrol 10 mg inhalation cartridge INHALE ONE PUFF BY MOUTH UP TO 16 TIMES DAILY Nicotrol 10 mg inhalation cartridge INHALE ONE PUFF BY MOUTH UP TO 16 TIMES DAILY completed nicotine 4 MG Inhalation Solutio n [Nicotrol] [place] ([facility]) atorvastatin 10 MG Oral Tablet atorvastatin 10 mg tabl et atorvastatin 10 mg tablet completed atorvastatin 10 MG Oral Tablet [place] ([facility]) doxycycline hyclate 100 MG Oral Capsule doxycycline hyclate 100 mg capsule TAKE ONE CAPSULE BY MOUTH TWICE A DAY FOR 10 DAYS doxycycline hyclate 100 mg capsule TAKE ONE CAPSULE BY MOUTH TWICE A DAY FOR 10 DAYS completed doxycycline hyclate 100 MG Oral Capsule [place] ([facility]) Acetaminophen 300 MG / butalbital 50 MG / Caffeine 40 MG Oral Capsule vhrgdwyakd-gmzhatyzlgfuv-zmhfhuen 50 mg-300 mg-40 mg capsule TAKE 1 TABLET BY MOUTH THREE TIMES A DAY NEEDED FOR HEADACHE yrtzgwwzji-cyxvzhuvuxnlf-wgsbssvf 50 mg-300 mg-40 mg capsule TAKE 1 TABLET BY MOUTH THREE TIMES A DAY NEEDED FOR HEADACHE completed a cetaminophen 300 MG / butalbital 50 MG / caffeine 40 MG Oral Capsule [place] ([facility]) doxycycline hyclate 100 MG Oral Tablet d oxycycline hyclate 100 mg tablet TAKE ONE TABLET BY MOUTH TWICE A DAY FOR 14 DAYS doxycycline hyclate 100 mg tablet TAKE ONE TABLET BY MOUTH TWICE A DAY FOR 14 DAYS completed doxycycline hyclate 100 MG Oral Tablet [place] ([facility]) Insurance Providers Payer name Policy type / Coverage type Policy ID Covered green party ID Covered green party's relationship to chacko Policy Chacko Plan Information [facility] COMMUNITY PLAN [facility] [id number] SP [id number] [facility] COMM[facility] PLAN [facility] [id number] SP [id number] [facility] COMMUNITY PLAN [facility] [id number] SP [id number] [place] [id number] 200 [place] [id number] [id number] [facility] [id number] Managed Care [place] P UNAVAILABLE S UNAVAILABLE Medicaid S UNAVAILABLE S UNAVAILA BLE ANSI-Commercial [id number] ANSI-Commercial [id number] [employer] [id number] [facility] [id number] [place] [facility] [place] Medicaid [id number] Self [id number] ANSI-Commercial [id number] ANSI-Commercial [id number] ANSI-Commercial [id number] ANSI-Commercial [id number] ANSI-Commercial [id number] [facility] [id number] Commercial Insurance [id number] ID IDENTIFICATION [id number] Other Insurance [id number] ANSI-Commercial [id number] ANSI-Commercial [id number] ANSI-Commercial [id number] ANSI-Commercial [id number] ANSI-Commercial [id number] ANSI-Commercial [id number] ANSI-Commercial [id number] ANSI-Commercial [id number] ANSI-Commercial [id number] ANSI-Commercial [id number] ANSI-Commercial [id number] ANSI-Commercial [id number] [place] [employer] [id number] ANSI-Commercial [id number] ANSI-Commercial [id number] ANSI-Commercial [id number] ANSI-Commercial [id number] ANSI-Commercial [id number] ANSI-Commercial [id number] [place] [facility] [id number] 18 [id number] ANSI-Commercial [id number] ANSI-Commercial [id number] ANSI-Commercial [id number] ANSI-Commercial [id number] ANSI-Commercial [id number] ANSI-Commercial [id number] ANSI-Commercial [id number] ANSI-Commercial [id number] ANSI-Commercial [id number] ANSI-Commercial [id number] ANSI-Commercial [id number] ANSI-Commercial [id number] [facility] COMMUNITY PLAN [facility] [id number] [facility]) O [id number] S [id number] [facility] Community Plan Commercial [id number] Self [id number] [facility] Health Maintenance Organization (HMO) [id number] Self [id number] [facility] MEDICAID [facility] HMO [id number] S [id number] [employer] [facility] MEDICAID MCD HMO UNAVAILABLE S UNAVAILABLE [facility] Health Maintenance Organization (HMO) [id number] Self [id number] [facility] Health Maintenance Organization (HMO) [id number] Self [id number] [facility] Health Maintenance Organization (HMO) [id number] Self [id number] [facility] [id number] SP [id number] [facility] O [id number] S [id number] [facility] [id number] SP [id number] [facility] Community Plan Health Maintenance Organization (HMO) [id number] Self [place] [id number] SP [id number] MEDICAID [id number] SP [id number] EMEDNY [id number] SP [id number] SELF PAY ONLY [id number] SP [id number] [place] [id number] SP [id number] [place] [facility] [id number] S [id number] Self Pay P UNAVAILABLE S UNAVAILA BLE Problems, Conditions, and Diagnoses Code Display Name Description Problem Type Effective Dates Data Source(s) 30668641 Nasal congestion Nasal Congestion Problem 04/30/2021 12 :00:00 AM EDT [facility]) [id number] Nasal congestion Nasal Congestion Problem 04/30/2021 12 :00:00 AM EDT [facility]) 74691068 Restless legs Restless Legs Problem 04/30/2021 12:00:00 AM EDT [facility] ([facility]) 96957983 Nasal congestion Nasal Congestion Problem 04/30/2021 12 :00:00 AM EDT [facility] ([facility]) 60687808 Restless legs Restless Legs Problem 04/30/2021 12:00:00 AM EDT [facility] ([facility]) 66953306 Restless legs Restless Legs Problem 04/30/2021 12:00:00 AM EDT [facility] ([facility]) [id number] Backache Backache Problem 08/21/2020 12:00:00 AM ES T [facility] ([facility]) 991702424 Backache Backache Problem 08/21/2020 12:00:00 AM ES Milagros ASHLEY ([facility]) [id number] Backache Backache Problem 08/21/2020 12:00:00 AM ES T [facility] ([facility]) 524097945 Backache Backache Problem 08/21/2020 12:00:00 AM ES Milagros ASHLEY ([facility]) [id number] Backache Backache Problem 08/21/2020 12:00:00 AM ES T [facility] ([facility]) 788736683 Backache Backache Problem 08/21/2020 12:00:00 AM ES Milagros ASHLEY ([facility]) [id number] Acquired absence of multiple teeth Acquired Abse nce of Multiple Teeth Problem 11/24/2019 12:00:00 AM EDT - 09/05/2020 12:00:00 AM LUZ ELENA ASHLEY ([facility]) [id number] Acquired absence of multiple teeth Acquired Abse nce of Multiple Teeth Problem 11/24/2019 12:00:00 AM EDT - 09/05/2020 12:00:00 AM ES Milagros ASHLEY ([facility]) [id number] Acquired absence of multiple teeth Acquired Abse nce of Multiple Teeth Problem 11/24/2019 12:00:00 AM EDT - 09/05/2020 12:00:00 AM ES Milagros ASHLEY ([facility]) [id number] Acquired absence of multiple teeth Acquired Abse nce of Multiple Teeth Problem 11/24/2019 12:00:00 AM EDT - 09/05/2020 12:00:00 AM LUZ ELENA ASHLEY ([facility]) [id number] Acquired absence of multiple teeth Acquired Abse nce of Multiple Teeth Problem 11/24/2019 12:00:00 AM EDT - 09/05/2020 12:00:00 AM LUZ ELENA ASHLEY ([facility]) [id number] Acquired absence of multiple teeth Acquired Abse nce of Multiple Teeth Problem 11/24/2019 12:00:00 AM EDT - 09/05/2020 12:00:00 AM LUZ ELENA ASHLEY ([facility]) [id number] Clinical finding Clinical Finding Problem 020 12:00:00 AM EDT - 09/05/2020 12:00:00 AM EST DION ([facility]) [id number] Clinical finding Clinical Finding Problem 12:00:00 AM EDT - 09/05/2020 12:00:00 AM EST DION ([facility]) [id number] Clinical finding Clinical Finding Problem 12:00:00 AM EDT - 09/05/2020 12:00:00 AM EST [facility] ([facility]) [id number] Clinical finding Clinical Finding Problem 020 12:00:00 AM EDT - 09/05/2020 12:00:00 AM EST [facility] ([facility]) [id number] Clinical finding Clinical Finding Problem 020 12:00:00 AM EDT - 09/05/2020 12:00:00 AM EST [facility] ([facility]) [id number] Clinical finding Clinical Finding Problem 020 12:00:00 AM EDT - 09/05/2020 12:00:00 AM EST [facility] ([facility]) [id number] Dental caries on smooth surface penetrat ing into pulp Dental Caries on Smooth Surface Penetrating into Pulp Problem 019 12:00:00 AM EST - 09/05/2020 12:00:00 AM EST [facility] ([facility]) [id number] Dental caries on smooth surface penetrat ing into pulp Dental Caries on Smooth Surface Penetrating into Pulp Problem 019 12:00:00 AM EST - 09/05/2020 12:00:00 AM EST [facility] ([facility]) [id number] Dental caries on smooth surface penetrat ing into pulp Dental Caries on Smooth Surface Penetrating into Pulp Problem 019 12:00:00 AM EST - 09/05/2020 12:00:00 AM EST [facility] ([facility]) [id number] Dental caries on smooth surface penetrat ing into pulp Dental Caries on Smooth Surface Penetrating into Pulp Problem 019 12:00:00 AM EST - 09/05/2020 12:00:00 AM EST [facility] ([facility]) [id number] Dental caries on smooth surface penetrat ing into pulp Dental Caries on Smooth Surface Penetrating into Pulp Problem 12:00:00 AM EST - 09/05/2020 12:00:00 AM EST [facility] ([facility]) [id number] Dental caries on smooth surface penetrat ing into pulp Dental Caries on Smooth Surface Penetrating into Pulp Problem 12:00:00 AM EST - 09/05/2020 12:00:00 AM EST [facility] ([facility]) Surgeries/Procedures No Information Results ID Date Data Source [id number] 07/22/2020 12:00:00 AM EST [facility] Name Value Range Interpretation Code Description Data Yareli rce(s) Supporting Document(s) Carestart Rapid COVID Antigen Test [facility] This lab was reported by Zahra [facility] Julio conrad. ID Date Data Source [id number] 04/23/2020 01:42:43 PM EDT [facility] Current Problems: Onychomycosis (ICD-110 .1) (DLR34-P40.1)Episodic tension type headache (ICD-339.11) (GEE81-E36.219)Tinea corporis (ICD-110.5) (ICD10- B35.4)Tobacco user (ICD-305.1) (FUC08-K06.200)Teeth extraction (ICD-525.10) (ZLO53-K02.499)Pure hypercholesterolemia, unspecified (GJQ99-F23.00)Chronic neck pain for greater than 3 months (CDD96-E08.2)Muscle weakness (ICD-728.87) (HTQ36-Q91.81)Low back pain (ICD-724.2) (SEL49-O16.5)Nicotine dependence, cigarettes, uncomplicated (ELS48-E30.210)Vitamin D deficiency, unspecified (YDE09-L85.9)Health Screening (ICD-V70.0) (VSG61-R19.9)BMI < 20 (ICD-V85.0) (OUF23-C63.1)DENTAL CARIES EXTENDING INTO PULP (ICD-521.03) (ICD10- K02.63)Current [...] cartridge up to 16 times daily; Route: [id number] [id number] MG ORAL CAPSULE (B [id number]) one tab po TID prn RAMOS; Route: [...] OS referral, placed antibiotics to [facility] on [address] as well as provided dry mouth [...] rce(s) Supporting Document(s) ID Date Data Source [id number] 04/16/2020 11:03:26 AM EDT [facility] Labs In-House Blood TestsDate/Time Colle cted: April 16, 2020 10:44 AMTest Result Reference Range Normal ValueComments: Labs drawn in office. Taken from left AC. Tolerated well Ailyn Banda MA, April 16, 2020 11:03 AMAssessment & Plan Orders:[id number] Vst-Est Level I [[id number]] [id number] - Venipuncture [[id number]] a t 12:08 PM Name Value Range Interpretation Code Description Data Yareli rce(s) Supporting Document(s) ID Date Data Source [id number] 04/16/2020 10:44:00 AM EDT [facility] Name Value Range Interpretation Code Description Data Yareli rce(s) Supporting Document(s) BG FASTING 116 mg/dL 70-100 [facility] Procedure Social History No Information Vital Signs ID Date Data Source UNK Name Value Range Interpretation Code Description Data Source(s) Body height 67 [in_i] 67 [in_i] [facility] ([facility]) Body mass index (BMI) [Ratio] 19.6 kg/m2 19.6 k g/m2 [facility] ([facility]) Body weight 2000 [oz_av] 2000 [oz_av] [facility] ([facility]) Body height 67 [in_i] 67 [in_i] [facility] ([facility]) Body weight 2000 [oz_av] 2000 [oz_av] [facility] ([facility]) Body mass index (BMI) [Ratio] 19.6 kg/m2 19.6 k g/m2 [facility] ([facility]) Body mass index (BMI) [Ratio] 19.4 kg/m2 19.4 k g/m2 [facility] ([facility]) Diastolic blood pressure 88 mm[Hg] 88 mm[Hg] [facility] ([facility]) Body height 67 [in_i] 67 [in_i] [facility] ([facility]) Systolic blood pressure 133 mm[Hg] 133 mm[Hg] A THENA ([facility]) Body weight 1980.8 [oz_av] 1980.8 [oz_av] ATHEN A ([facility]) Diastolic blood pressure 88 mm[Hg] 88 mm[Hg] [facility] ([facility]) Body height 67 [in_i] 67 [in_i] [facility] ([facility]) Body mass index (BMI) [Ratio] 19.4 kg/m2 19.4 k g/m2 [facility] ([facility]) Systolic blood pressure 133 mm[Hg] 133 mm[Hg] A THENA ([facility]) Body weight 1980.8 [oz_av] 1980.8 [oz_av] ATHEN A ([facility]) Diastolic blood pressure 88 mm[Hg] 88 mm[Hg] [facility] ([facility]) Body height 67 [in_i] 67 [in_i] [facility] ([facility]) Body mass index (BMI) [Ratio] 19.4 kg/m2 19.4 k g/m2 [facility] ([facility]) Systolic blood pressure 133 mm[Hg] 133 mm[Hg] A THENA ([facility]) Body weight 1980.8 [oz_av] 1980.8 [oz_av] ATHEN A ([facility]) Body weight 1888 [oz_av] 1888 [oz_av] [facility] ([facility]) Diastolic blood pressure 82 mm[Hg] 82 mm[Hg] [facility] ([facility]) Body height 67 [in_i] 67 [in_i] [facility] ([facility]) Body mass index (BMI) [Ratio] 18.5 kg/m2 18.5 k g/m2 [facility] ([facility]) Systolic blood pressure 131 mm[Hg] 131 mm[Hg] A THENA ([facility]) Diastolic blood pressure 82 mm[Hg] 82 mm[Hg] [facility] ([facility]) Body height 67 [in_i] 67 [in_i] [facility] ([facility]) Body mass index (BMI) [Ratio] 18.5 kg/m2 18.5 k g/m2 [facility] ([facility]) Systolic blood pressure 131 mm[Hg] 131 mm[Hg] A THENA ([facility]) Body weight 1888 [oz_av] 1888 [oz_av] [facility] ([facility]) Diastolic blood pressure 82 mm[Hg] 82 mm[Hg] [facility] ([facility]) Body height 67 [in_i] 67 [in_i] [facility] ([facility]) Body mass index (BMI) [Ratio] 18.5 kg/m2 18.5 k g/m2 [facility] ([facility]) Systolic blood pressure 131 mm[Hg] 131 mm[Hg] A THENA ([facility]) Body weight 1888 [oz_av] 1888 [oz_av] [facility] ([facility]) Diastolic blood pressure 82 mm[Hg] 82 mm[Hg] [facility] ([facility]) Body height 67 [in_i] 67 [in_i] [facility] ([facility]) Body mass index (BMI) [Ratio] 18.5 kg/m2 18.5 k g/m2 [facility] ([facility]) Systolic blood pressure 131 mm[Hg] 131 mm[Hg] A [facility] ([facility]) Body weight 1888 [oz_av] 1888 [oz_av] [facility] ([facility]) Diastolic blood pressure 87 mm[Hg] 87 mm[Hg] [facility] ([facility]) Body height 67 [in_i] 67 [in_i] [facility] ([facility]) Body mass index (BMI) [Ratio] 20 kg/m2 20 kg/ m2 [facility] ([facility]) Systolic blood pressure 127 mm[Hg] 127 mm[Hg] [facility] Body weight 2044.8 [oz_av] 2044.8 [oz_av] ATHEN A ([facility]) Body height 67 [in_i] 67 [in_i] [facility] ([facility]) Diastolic blood pressure 87 mm[Hg] 87 mm[Hg] [facility] ([facility]) Body mass index (BMI) [Ratio] 20 kg/m2 20 kg/ m2 [facility] ([facility]) Systolic blood pressure 127 mm[Hg] 127 mm[Hg] A [facility]) Body weight 2044.8 [oz_av] 2044.8 [oz_av] ATHEN A ([facility]) Diastolic blood pressure 87 mm[Hg] 87 mm[Hg] [facility] ([facility]) Body height 67 [in_i] 67 [in_i] [facility] ([facility]) Body mass index (BMI) [Ratio] 20 kg/m2 20 kg/ m2 [facility] ([facility]) Systolic blood pressure 127 mm[Hg] 127 mm[Hg] [facility]) Body weight 2044.8 [oz_av] 2044.8 [oz_av] ATHEN A ([facility]) Body height 67 [in_i] 67 [in_i] [facility] ([facility]) Diastolic blood pressure 87 mm[Hg] 87 mm[Hg] [facility] ([facility]) Body mass index (BMI) [Ratio] 20 kg/m2 20 kg/ m2 [facility] ([facility]) Systolic blood pressure 127 mm[Hg] 127 mm[Hg] A [facility] ([facility]) Body weight 2044.8 [oz_av] 2044.8 [oz_av] ATHEN A ([facility]) Systolic blood pressure 127 mm[Hg] 127 mm[Hg] [facility]) Body weight 2044.8 [oz_av] 2044.8 [oz_av] ATHEN A ([facility]) Diastolic blood pressure 87 mm[Hg] 87 mm[Hg] [facility] ([facility]) Body height 67 [in_i] 67 [in_i] [facility] ([facility]) Body mass index (BMI) [Ratio] 20 kg/m2 20 kg/ m2 [facility] ([facility]) Diastolic blood pressure 87 mm[Hg] 87 mm[Hg] [facility] ([facility]) Body height 67 [in_i] 67 [in_i] [facility] ([facility]) Body mass index (BMI) [Ratio] 20 kg/m2 20 kg/ m2 [facility] ([facility]) Systolic blood pressure 127 mm[Hg] 127 mm[Hg] A [facility]) Body weight 2044.8 [oz_av] 2044.8 [oz_av] ATHEN A ([facility]) Body weight 1964.8 [oz_av] 1964.8 [oz_av] ATHEN A ([facility]) Diastolic blood pressure 87 mm[Hg] 87 mm[Hg] [facility] ([facility]) Body height 67 [in_i] 67 [in_i] [facility] ([facility]) Body mass index (BMI) [Ratio] 19.2 kg/m2 19.2 k g/m2 [facility] ([facility]) Systolic blood pressure 135 mm[Hg] 135 mm[Hg] A THENA ([facility]) Diastolic blood pressure 87 mm[Hg] 87 mm[Hg] [facility] ([facility]) Body height 67 [in_i] 67 [in_i] [facility] ([facility]) Body mass index (BMI) [Ratio] 19.2 kg/m2 19.2 k g/m2 [facility] ([facility]) Systolic blood pressure 135 mm[Hg] 135 mm[Hg] A [facility]) Body weight 1964.8 [oz_av] 1964.8 [oz_av] ATHEN A ([facility]) Diastolic blood pressure 87 mm[Hg] 87 mm[Hg] [facility] ([facility]) Body height 67 [in_i] 67 [in_i] [facility] ([facility]) Body mass index (BMI) [Ratio] 19.2 kg/m2 19.2 k g/m2 [facility] ([facility]) Systolic blood pressure 135 mm[Hg] 135 mm[Hg] A THENA ([facility]) Body weight 1964.8 [oz_av] 1964.8 [oz_av] ATHEN A ([facility]) Diastolic blood pressure 87 mm[Hg] 87 mm[Hg] [facility] ([facility]) Body height 67 [in_i] 67 [in_i] [facility] ([facility]) Body mass index (BMI) [Ratio] 19.2 kg/m2 19.2 k g/m2 [facility] ([facility]) Systolic blood pressure 135 mm[Hg] 135 mm[Hg] A THENA ([facility]) Body weight 1964.8 [oz_av] 1964.8 [oz_av] ATHEN A ([facility]) Diastolic blood pressure 87 mm[Hg] 87 mm[Hg] [facility] ([facility]) Body height 67 [in_i] 67 [in_i] [facility] ([facility]) Body mass index (BMI) [Ratio] 19.2 kg/m2 19.2 k g/m2 [facility] ([facility]) Systolic blood pressure 135 mm[Hg] 135 mm[Hg] A [facility]) Body weight 1964.8 [oz_av] 1964.8 [oz_av] ATHEN A ([facility]) Diastolic blood pressure 87 mm[Hg] 87 mm[Hg] [facility] ([facility]) Body height 67 [in_i] 67 [in_i] [facility] ([facility]) Body mass index (BMI) [Ratio] 19.2 kg/m2 19.2 k g/m2 [facility] ([facility]) Systolic blood pressure 135 mm[Hg] 135 mm[Hg] A [facility] ([facility]) Body weight 1964.8 [oz_av] 1964.8 [oz_av] ATHEN A ([facility]) Diastolic blood pressure 81 mm[Hg] 81 mm[Hg] [facility] ([facility]) Body height 67 [in_i] 67 [in_i] [facility] ([facility]) Body mass index (BMI) [Ratio] 18.9 kg/m2 18.9 k g/m2 [facility] ([facility]) Systolic blood pressure 127 mm[Hg] 127 mm[Hg] [facility]) Body weight 1926.4 [oz_av] 1926.4 [oz_av] ATHEN A ([facility]) Diastolic blood pressure 81 mm[Hg] 81 mm[Hg] [facility] ([facility]) Body height 67 [in_i] 67 [in_i] [facility] ([facility]) Body mass index (BMI) [Ratio] 18.9 kg/m2 18.9 k g/m2 [facility] ([facility]) Systolic blood pressure 127 mm[Hg] 127 mm[Hg] A [facility] ([facility]) Body weight 1926.4 [oz_av] 1926.4 [oz_av] ATHEN A ([facility]) Diastolic blood pressure 81 mm[Hg] 81 mm[Hg] [facility] ([facility]) Body height 67 [in_i] 67 [in_i] [facility] ([facility]) Body mass index (BMI) [Ratio] 18.9 kg/m2 18.9 k g/m2 [facility] ([facility]) Systolic blood pressure 127 mm[Hg] 127 mm[Hg] [facility]) Body weight 1926.4 [oz_av] 1926.4 [oz_av] ATHEN A ([facility]) Diastolic blood pressure 81 mm[Hg] 81 mm[Hg] [facility] ([facility]) Body height 67 [in_i] 67 [in_i] [facility] ([facility]) Body mass index (BMI) [Ratio] 18.9 kg/m2 18.9 k g/m2 [facility] ([facility]) Systolic blood pressure 127 mm[Hg] 127 mm[Hg] [facility]) Body weight 1926.4 [oz_av] 1926.4 [oz_av] ATHEN A ([facility]) Diastolic blood pressure 81 mm[Hg] 81 mm[Hg] [facility] ([facility]) Body height 67 [in_i] 67 [in_i] [facility] ([facility]) Body mass index (BMI) [Ratio] 18.9 kg/m2 18.9 k g/m2 [facility] ([facility]) Systolic blood pressure 127 mm[Hg] 127 mm[Hg] A THENA ([facility]) Body weight 1926.4 [oz_av] 1926.4 [oz_av] ATHEN A ([facility]) Diastolic blood pressure 81 mm[Hg] 81 mm[Hg] [facility] ([facility]) Body height 67 [in_i] 67 [in_i] [facility] ([facility]) Body mass index (BMI) [Ratio] 18.9 kg/m2 18.9 k g/m2 [facility] ([facility]) Systolic blood pressure 127 mm[Hg] 127 mm[Hg] A THENA ([facility]) Body weight 1926.4 [oz_av] 1926.4 [oz_av] ATHEN A ([facility]) Diastolic blood pressure 81 mm[Hg] 81 mm[Hg] [facility] ([facility]) Body height 67 [in_i] 67 [in_i] [facility] ([facility]) Body mass index (BMI) [Ratio] 18.9 kg/m2 18.9 k g/m2 [facility] ([facility]) Systolic blood pressure 127 mm[Hg] 127 mm[Hg] Chandrakant PRAKASH ([facility]) Body weight 1926.4 [oz_av] 1926.4 [oz_av] LISA Stallings ([facility]) Patient Treatment Plan of Care Planned Activity Planned Date Details Description Data Source (s) Cyclobenzaprine hydrochloride 10 MG Oral Tablet 04/30/2021 12:00:00 AM EDT [place] ([facility]) Cyclobenzaprine hydrochloride 10 MG Oral Tablet 04/30/2021 12:00:00 AM EDT [facility] ([facility]) Cyclobenzaprine hydrochloride 10 MG Oral Tablet 04/30/2021 12:00:00 AM EDT [facility] ([facility]) azelastine 137 mcg (0.1 %) nasal spray a erosol USE 1 SPRAY EACH NOSTRILTWO TIMES A DAY [facility] ([facility]) atorvastatin 20 MG Oral Tablet [facility] ([facility]) atorvastatin 10 MG Oral Tablet [facility] ([facility]) Adult Probiotic 3 billion cell capsule T indira 1 capsule every day by oral route for 14 days. [facility] ([facility]) Ergocalciferol 49094 UNT Oral Capsule [facility] ([facility]) terbinafine 250 MG Oral Tablet [facility] ([facility]) Prednisone 20 MG Oral Tablet [facility] ([facility]) Nicotine 4 MG/ACTUAT Inhalant Solution [Nicotrol] [facility] ([facility]) Naltrexone hydrochloride 50 MG Oral Tablet [facility] ([facility]) Levofloxacin 750 MG Oral Tablet [facility] ([facility]) doxycycline hyclate 100 MG Oral Tablet [facility] ([facility]) doxycycline hyclate 100 MG Oral Capsule [facility] ([facility]) Clindamycin 300 MG Oral Capsule [facility] ([facility]) ciclopirox 80 MG/ML Topical Solution [facility] ([facility]) cetirizine hydrochloride 10 MG Oral Tablet [facility] ([facility]) Acetaminophen 300 MG / butalbital 50 MG / Caffeine 40 MG Oral Capsu le [facility] ([facility]) azelastine 137 mcg (0.1 %) nasal spray a erosol USE 1 SPRAY EACH NOSTRILTWO TIMES A DAY [facility] ([facility]) atorvastatin 20 MG Oral Tablet [facility] ([facility]) atorvastatin 10 MG Oral Tablet [facility] ([facility]) Adult Probiotic 3 billion cell capsule T indira 1 capsule every day by oral route for 14 days. [facility] ([facility]) Ergocalciferol 19024 UNT Oral Capsule [facility] ([facility]) terbinafine 250 MG Oral Tablet [facility] ([facility]) Prednisone 20 MG Oral Tablet [facility] ([facility]) Nicotine 4 MG/ACTUAT Inhalant Solution [Nicotrol] [facility] ([facility]) Levofloxacin 750 MG Oral Tablet [facility] ([facility]) doxycycline hyclate 100 MG Oral Tablet [facility] ([facility]) doxycycline hyclate 100 MG Oral Capsule [facility] ([facility]) Clindamycin 300 MG Oral Capsule [facility] ([facility]) ciclopirox 80 MG/ML Topical Solution [facility] ([facility]) cetirizine hydrochloride 10 MG Oral Tablet [facility] ([facility]) Acetaminophen 300 MG / butalbital 50 MG / Caffeine 40 MG Oral Capsu le [facility] ([facility]) azelastine 137 mcg (0.1 %) nasal spray a erosol USE 1 SPRAY EACH NOSTRILTWO TIMES A DAY [facility] ([facility]) atorvastatin 20 MG Oral Tablet [facility] ([facility]) atorvastatin 10 MG Oral Tablet [facility] ([facility]) Adult Probiotic 3 billion cell capsule T indira 1 capsule every day by oral route for 14 days. [facility] ([facility]) Ergocalciferol 46120 UNT Oral Capsule [facility] ([facility]) terbinafine 250 MG Oral Tablet [facility] ([facility]) Prednisone 20 MG Oral Tablet [facility] ([facility]) Nicotine 4 MG/ACTUAT Inhalant Solution [Nicotrol] [facility] ([facility]) Levofloxacin 750 MG Oral Tablet [facility] ([facility]) doxycycline hyclate 100 MG Oral Tablet [facility] ([facility]) doxycycline hyclate 100 MG Oral Capsule [facility] ([facility]) Clindamycin 300 MG Oral Capsule [facility] ([facility]) ciclopirox 80 MG/ML Topical Solution [facility] ([facility]) cetirizine hydrochloride 10 MG Oral Tablet [facility] ([facility]) Acetaminophen 300 MG / butalbital 50 MG / Caffeine 40 MG Oral Capsu le [facility] ([facility]) atorvastatin 20 MG Oral Tablet [facility] ([facility]) atorvastatin 10 MG Oral Tablet [facility] ([facility]) Adult Probiotic 3 billion cell capsule T indira 1 capsule every day by oral route for 14 days. [facility] ([facility]) Ergocalciferol 50623 UNT Oral Capsule [facility] ([facility]) terbinafine 250 MG Oral Tablet [facility] ([facility]) Prednisone 20 MG Oral Tablet [facility] ([facility]) Nicotine 4 MG/ACTUAT Inhalant Solution [Nicotrol] [facility] ([facility]) Levofloxacin 750 MG Oral Tablet [facility] ([facility]) doxycycline hyclate 100 MG Oral Tablet [facility] ([facility]) doxycycline hyclate 100 MG Oral Capsule [facility] ([facility]) Clindamycin 300 MG Oral Capsule [facility] ([facility]) ciclopirox 80 MG/ML Topical Solution [facility] ([facility]) cetirizine hydrochloride 10 MG Oral Tablet [facility] ([facility]) Acetaminophen 300 MG / butalbital 50 MG / Caffeine 40 MG Oral Capsu le [facility] ([facility]) atorvastatin 20 MG Oral Tablet [facility] ([facility]) atorvastatin 10 MG Oral Tablet [facility] ([facility]) Ergocalciferol 58097 UNT Oral Capsule [facility] ([facility]) terbinafine 250 MG Oral Tablet [facility] ([facility]) Prednisone 20 MG Oral Tablet [facility] ([facility]) Nicotine 4 MG/ACTUAT Inhalant Solution [Nicotrol] [facility] ([facility]) Levofloxacin 750 MG Oral Tablet [facility] ([facility]) doxycycline hyclate 100 MG Oral Tablet [facility] ([facility]) doxycycline hyclate 100 MG Oral Capsule [facility] ([facility]) Clindamycin 300 MG Oral Capsule [facility] ([facility]) ciclopirox 80 MG/ML Topical Solution [facility] ([facility]) cetirizine hydrochloride 10 MG Oral Tablet [facility] ([facility]) Acetaminophen 300 MG / butalbital 50 MG / Caffeine 40 MG Oral Capsu le [facility] ([facility]) atorvastatin 20 MG Oral Tablet [facility] ([facility]) atorvastatin 10 MG Oral Tablet [facility] ([facility]) Ergocalciferol 19375 UNT Oral Capsule [facility] ([facility]) terbinafine 250 MG Oral Tablet [facility] ([facility]) Prednisone 20 MG Oral Tablet [facility] ([facility]) Nicotine 4 MG/ACTUAT Inhalant Solution [Nicotrol] [facility] ([facility]) doxycycline hyclate 100 MG Oral Tablet [facility] ([facility]) doxycycline hyclate 100 MG Oral Capsule [facility] ([facility]) Clindamycin 300 MG Oral Capsule [facility] ([facility]) ciclopirox 80 MG/ML Topical Solution [facility] ([facility]) Acetaminophen 300 MG / butalbital 50 MG / Caffeine 40 MG Oral Capsu le [facility] ([facility]) atorvastatin 20 MG Oral Tablet [facility] ([facility]) atorvastatin 10 MG Oral Tablet [facility] ([facility]) albuterol sulfate HFA 90 mcg/actuation a erosol inhaler INHALE 2 PUFFS FOUR TIMES A DAY NEEDED FOR FOR SHORTNESS OF BREATH [facility] ([facility]) Ergocalciferol 83738 UNT Oral Capsule [facility] ([facility]) terbinafine 250 MG Oral Tablet [facility] ([facility]) Prednisone 20 MG Oral Tablet [facility] ([facility]) Nicotine 4 MG/ACTUAT Inhalant Solution [Nicotrol] [facility] ([facility]) Naltrexone hydrochloride 50 MG Oral Tablet [facility] ([facility]) Levofloxacin 750 MG Oral Tablet [facility] ([facility]) doxycycline hyclate 100 MG Oral Tablet [facility] ([facility]) doxycycline hyclate 100 MG Oral Capsule [facility] ([facility]) Clindamycin 300 MG Oral Capsule [facility] ([facility]) ciclopirox 80 MG/ML Topical Solution [facility] ([facility]) cetirizine hydrochloride 10 MG Oral Tablet [facility] ([facility]) Acetaminophen 300 MG / butalbital 50 MG / Caffeine 40 MG Oral Capsu le DION ([facility])
--- NOTE | 2021-06-14 20:42 | ECGEPIP ---
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
== END 2021-06-14 19:33 | disposition left against medical advice (07) ==
LOC: M ED 14:38
DX: Z53.29 Procedure and treatment not carried out because of patient's decision for other reasons (principal)

== ENCOUNTER 2021-06-17 12:14 | Emergency (ER) | payer OTHER ==
[~2021-06-17] VITALS: Ht 170.2 cm; Wt 54.5 kg
[~2021-06-17 12:14] MED LIST changes: +LEVO500T3
--- NOTE | 2021-06-17 13:02 | REP ---
INDICATION: CHEST PAIN COMPARISON: 08/22/2019 TECHNIQUE: Portable AP view of the chest FINDINGS: The mediastinum and cardiac silhouette are stable and within normal limits for portable technique. The lung elizondo are clear without acute consolidation, effusion, or pneumothorax. Skeletal structures are intact. IMPRESSION: No acute cardiopulmonary process appreciated. <Electronically signed by [place] Subramanian > 06/17/21 [id number]
[2021-06-17 13:32] LABS: BASO # 0.1 10^3/uL (0.0-0.2); BASO % 1.5 % (0.0-1.0); EOS # 0.1 10^3/uL (0.0-0.5); EOS % 1.7 % (0.0-3.0); HEMATOCRIT 46.9 % (42.0-52.0); LYMPH # 2.2 10^3/uL (1.5-5.0); LYMPH % 33.4 % (24.0-44.0); MEAN CORPUSCULAR HEMOGLOBIN 31.6 pg (27.0-33.0); MEAN CORPUSCULAR HGB CONC 34.1 g/dl (32.0-36.5); MEAN CORPUSCULAR VOLUME 92.5 fl (80.0-96.0); MONO # 0.6 10^3/uL (0.0-0.8); MONO % 9.1 % (2.0-8.0); NEUTROPHILS # 3.5 10^3/uL (1.5-8.5); PLATELET COUNT, AUTOMATED 354 10^3/uL (150-450); RED BLOOD COUNT 5.07 10^6/uL (4.30-6.10); WHITE BLOOD COUNT 6.5 10^3/uL (4.0-10.0)
[2021-06-17 13:47] LABS: ALBUMIN 3.1 GM/DL (3.2-5.2); ALT/SGPT 16 U/L (12-78); BILIRUBIN,DIRECT 0.1 MG/DL (0.0-0.2); BILIRUBIN,TOTAL 0.3 MG/DL (0.2-1.0); BLOOD UREA NITROGEN 9 MG/DL (7-18); CARBON DIOXIDE LEVEL 27 MEQ/L (21-32); CHLORIDE LEVEL 111 MEQ/L (98-107); CREATININE FOR GFR 0.64 MG/DL (0.70-1.30); FREE T4 0.95 NG/DL (0.76-1.46); GLOMERULAR FILTRATION RATE > 60.0 (>60); GLUCOSE, FASTING 97 MG/DL (70-100); POTASSIUM SERUM 3.3 MEQ/L (3.5-5.1); SODIUM LEVEL 142 MEQ/L (136-145); THYROID STIMULATING HORMONE 0.896 uIU/ML (0.358-3.740); TOTAL PROTEIN 6.3 GM/DL (6.4-8.2)
[2021-06-17] MEDS ORDERED: POTASSIUM CHLORIDE 10MEQ SR TABLET PO ONE (14:00)
[2021-06-17 14:45] VITALS: BP 135/79
--- NOTE | 2021-06-18 16:48 | ECGEPIP ---
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
== END 2021-06-17 14:54 | disposition home or self-care (01) ==
LOC: EDBD 12:14 → M ED 12:14
DX: R42 Dizziness and giddiness (principal); B34.8 Other viral infections of unspecified site; E87.6 Hypokalemia; J44.9 Chronic obstructive pulmonary disease, unspecified; F33.9 Major depressive disorder, recurrent, unspecified; F41.9 Anxiety disorder, unspecified; F10.10 Alcohol abuse, uncomplicated; G43.909 Migraine, unspecified, not intractable, without status migrainosus; Z88.0 Allergy status to penicillin; F17.210 Nicotine dependence, cigarettes, uncomplicated

== ENCOUNTER 2021-10-31 19:40 | Inpatient (IN) | payer OTHER ==
[~2021-10-31] VITALS: Ht 167.6 cm; Wt 54.0 kg
[~2021-10-31 19:40] MED LIST changes: -LEVO500T3; +LEVO500T4
[2021-10-31 20:22] LABS: HEMATOCRIT 41.2 % (42.0-52.0); HEMOGLOBIN 14.8 g/dl (13.5-17.5); MEAN CORPUSCULAR HEMOGLOBIN 32.2 pg (27.0-33.0); MEAN CORPUSCULAR HGB CONC 35.9 g/dl (32.0-36.5); MEAN CORPUSCULAR VOLUME 89.8 fl (80.0-96.0); PLATELET COUNT, AUTOMATED 312 10^3/uL (150-450); RED BLOOD COUNT 4.59 10^6/uL (4.30-6.10)
[2021-10-31 20:53] LABS: BLOOD UREA NITROGEN 8 MG/DL (7-18); CARBON DIOXIDE LEVEL 26 MEQ/L (21-32); CHLORIDE LEVEL 103 MEQ/L (98-107); CREATININE FOR GFR 0.79 MG/DL (0.70-1.30); GLOMERULAR FILTRATION RATE > 60.0 (>60); GLUCOSE, FASTING 82 MG/DL (70-100); POTASSIUM SERUM 3.6 MEQ/L (3.5-5.1); SODIUM LEVEL 138 MEQ/L (136-145)
[2021-10-31 20:54] LABS: AMPHETAMINES LEVEL URINE NEGATIVE (NEGATIVE); BARBITURATES URINE NEGATIVE (NEGATIVE); BENZODIAZEPINES URINE NEGATIVE (NEGATIVE); CALCIUM LEVEL 9.2 MG/DL (8.5-10.1); CANNABINOIDS URINE NEGATIVE (NEGATIVE); COCAINE METABOLITE URINE NEGATIVE (NEGATIVE); ETHYL ALCOHOL (ETHANOL) 0.207 % (0.000-0.010); METHADONE URINE NEGATIVE (NEGATIVE); OPIATES URINE NEGATIVE (NEGATIVE); PHENCYCLIDINE URINE NEGATIVE (NEGATIVE)
[2021-10-31 22:28] LABS: ACETAMINOPHEN LEVEL < 2.0 UG/ML (10.0-30.0); SALICYLATE LEVEL 3.9 MG/DL (5.0-30.0)
[2021-10-31 23:42] LABS: RSV AMPLIFICATION NEGATIVE (NEGATIVE)
[2021-11-01] MEDS ORDERED: HOME MED LIST COMPLETE! XX SCH (05:45)
[2021-11-01] MEDS ORDERED: LORazepam 2 MG TAB PO PRN ×2 (07:20→09:50)
[2021-11-01] MEDS ORDERED: MULTIVITAMINS/MINERALS THERAP 1 TAB PO SCH (09:00)
[2021-11-01] MEDS ORDERED: FOLIC ACID 1 MG TAB PO SCH (09:00)
[2021-11-01] MEDS ORDERED: THIAMINE 100 MG TAB PO SCH (09:00)
[2021-11-01] MEDS ORDERED: MAALOX 30 ML SUSP *UDC PO PRN (09:50)
[2021-11-01] MEDS ORDERED: ACETAMINOPHEN TAB 650MG DOSE (2X325MG) PO PRN (09:50)
[2021-11-01] MEDS ORDERED: traZODone 50 MG TAB PO PRN (09:50)
[2021-11-01] MEDS ORDERED: MOM 30ML SUSPENSION UDC PO PRN (09:50)
[2021-11-01 10:54] VITALS: BP 125/83
[2021-11-01] MEDS ORDERED: NICOTINE 21MG/24HR 1 EA TRANSDERMAL TD PRN (13:45)
[2021-11-01 14:16] VITALS: BP 118/65
[2021-11-01] MEDS: THIAMINE 100 MG TAB PO SCH (21:00)
[2021-11-02 06:34] VITALS: BP 125/63
[2021-11-02 08:19] VITALS: BP 140/64
[2021-11-02] MEDS: THIAMINE 100 MG TAB PO SCH ×2 (09:00→21:50)
[2021-11-02] MEDS: MULTIVITAMINS/MINERALS THERAP 1 TAB PO SCH (09:00)
[2021-11-02] MEDS: FOLIC ACID 1 MG TAB PO SCH (09:00)
[2021-11-02] MEDS ORDERED: ALBUTEROL 90 MCG/ACT 8GM HFA INHALER INH PRN (13:00)
[2021-11-03 06:42] VITALS: BP 119/62
[2021-11-03] MEDS: FOLIC ACID 1 MG TAB PO SCH (09:00)
[2021-11-03] MEDS: MULTIVITAMINS/MINERALS THERAP 1 TAB PO SCH (09:00)
[2021-11-03] MEDS: THIAMINE 100 MG TAB PO SCH (09:00)
[2021-11-03] MEDS ORDERED: NALTREXONE 50 MG TAB PO SCH (10:20)
[2021-11-03] MEDS ORDERED: NICO21PAT TD (13:08)
[2021-11-03] MEDS ORDERED: NALT50TA4 PO (13:08)
== END 2021-11-03 13:46 | disposition home or self-care (01) | DRG 755 ==
LOC: EDSEX 19:40 → EDBD 19:40 → M ED 19:40 → M ED INP 11-01 09:47 → M PSY 11-01 10:40
PROVIDERS: ADMIT Student in an Organized Health Care Education/Training Program; ATTEND Student in an Organized Health Care Education/Training Program
DX: F43.23 Adjustment disorder with mixed anxiety and depressed mood (principal); F10.20 Alcohol dependence, uncomplicated; F17.210 Nicotine dependence, cigarettes, uncomplicated; Z63.5 Disruption of family by separation and divorce; Z20.822 Contact with and (suspected) exposure to COVID-19; Z88.0 Allergy status to penicillin; Z63.8 Other specified problems related to primary support group; R45.851 Suicidal ideations; J44.9 Chronic obstructive pulmonary disease, unspecified; Z91.19 Patient's noncompliance with other medical treatment and regimen

== ENCOUNTER 2021-12-02 08:54 | Emergency (ER) | payer OTHER ==
[~2021-12-02] VITALS: Ht 170.2 cm; Wt 54.5 kg
[~2021-12-02 08:54] MED LIST changes: +NALT50TA4 PO; +NICO21PAT TD
[2021-12-02 09:04] VITALS: BP 151/87
[2021-12-02] MEDS ORDERED: diphenhydrAMINE 50MG/ML VIAL (J1200) IV STA (09:26)
[2021-12-02] MEDS ORDERED: NS 1,000 ML IV ONE (09:30)
[2021-12-02] MEDS ORDERED: KETOROLAC 30 MG/ML 1ML VIAL IV ONE (09:30)
[2021-12-02] MEDS ORDERED: METOCLOPRAMIDE INJ 10MG/2ML VIAL (J2765 PER 1) IV ONE (09:30)
== END 2021-12-02 09:40 | disposition left against medical advice (07) ==
LOC: M ED 09:40
DX: R51.9 Headache, unspecified (principal); J44.9 Chronic obstructive pulmonary disease, unspecified; Z79.899 Other long term (current) drug therapy; Z88.0 Allergy status to penicillin; F17.210 Nicotine dependence, cigarettes, uncomplicated

== ENCOUNTER 2022-03-12 13:39 | Emergency (ER) | payer OTHER ==
[~2022-03-12] VITALS: Ht 170.2 cm; Wt 55.6 kg
[~2022-03-12 13:39] MED LIST changes: +LEVO1TAB39; -LEVO500T4
[2022-03-12] MEDS ORDERED: SALI0.6530 NARES (15:40)
[2022-03-12] MEDS ORDERED: AZIT-12 PO (15:40)
[2022-03-12] MEDS ORDERED: LIDO2SOL17 PO (15:40)
[2022-03-12 15:49] VITALS: BP 160/80
== END 2022-03-12 15:53 | disposition home or self-care (01) ==
LOC: M ED 13:39
DX: J32.9 Chronic sinusitis, unspecified (principal); R06.02 Shortness of breath; J44.9 Chronic obstructive pulmonary disease, unspecified; K21.9 Gastro-esophageal reflux disease without esophagitis; Z88.0 Allergy status to penicillin; F17.200 Nicotine dependence, unspecified, uncomplicated

== ENCOUNTER 2022-06-18 21:34 | Emergency (ER) | payer OTHER ==
[~2022-06-18 21:34] MED LIST changes: +AZIT-12 PO; +LIDO2SOL17 PO; +SALI0.6530 NARES
[2022-06-19 03:12] VITALS: BP 129/79
[2022-06-19] MEDS ORDERED: ONDANSETRON 4MG ORAL DISINTEGRATING TAB PO ONE (07:35)
[2022-06-19] MEDS ORDERED: FLON1SPR NARES (08:56)
[2022-06-19] MEDS ORDERED: PSEU120T3 PO (08:56)
[2022-06-19] MEDS ORDERED: AFRISPR3 (08:57)
== END 2022-06-19 11:00 | disposition home or self-care (01) ==
LOC: EDBD 21:34 → M ED 21:34
DX: F10.10 Alcohol abuse, uncomplicated (principal); R51.9 Headache, unspecified; J44.9 Chronic obstructive pulmonary disease, unspecified; F17.200 Nicotine dependence, unspecified, uncomplicated; Z79.899 Other long term (current) drug therapy; Z88.0 Allergy status to penicillin

== ENCOUNTER 2022-06-22 20:04 | Emergency (ER) | payer OTHER ==
[~2022-06-22] VITALS: Ht 170.2 cm; Wt 6.4 kg
[~2022-06-22 20:04] MED LIST changes: +AFRISPR3; +FLON1SPR NARES; +PSEU120T3 PO
[2022-06-22 21:32] LABS: BASO # 0.1 10^3/uL (0.0-0.2); BASO % 0.7 % (0.0-1.0); EOS # 0.1 10^3/uL (0.0-0.5); EOS % 1.3 % (0.0-3.0); HEMATOCRIT 41.1 % (42.0-52.0); LYMPH # 2.5 10^3/uL (1.5-5.0); LYMPH % 23.8 % (24.0-44.0); MEAN CORPUSCULAR HGB CONC 34.1 g/dl (32.0-36.5); MEAN CORPUSCULAR VOLUME 90.9 fl (80.0-96.0); MONO # 0.9 10^3/uL (0.0-0.8); MONO % 8.5 % (2.0-8.0); NEUTROPHILS % 65.3 % (36.0-66.0); PLATELET COUNT, AUTOMATED 337 10^3/uL (150-450); RED BLOOD COUNT 4.52 10^6/uL (4.30-6.10); WHITE BLOOD COUNT 10.6 10^3/uL (4.0-10.0)
[2022-06-22 21:33] LABS: CARBOXYHEMOGLOBIN 6.7 % (0.0-1.5); VENOUS HCO3 32.4 MEQ/L (23.0-27.0); VENOUS O2 SATURATION 44.6 % (60.0-80.0); VENOUS PARTIAL PRESSURE CO2 53.1 mmHg (38.0-50.0); VENOUS PARTIAL PRESSURE O2 22.9 mmHg (30.0-50.0); VENOUS PH 7.403 UNITS (7.330-7.430); VENOUS STANDARD HCO3 28.4 MEQ/L
[2022-06-22 22:23] LABS: CHLORIDE LEVEL 100 MMOL/L (98-107); POTASSIUM SERUM 4.6 MMOL/L (3.5-5.1); SODIUM LEVEL 140 MMOL/L (136-145)
[2022-06-22 22:39] LABS: BLOOD UREA NITROGEN 10 MG/DL (9-23); CARBON DIOXIDE LEVEL 31 MMOL/L (20-31); GLUCOSE, FASTING 99 MG/DL (60-100)
[2022-06-22 23:01] LABS: CALCIUM LEVEL 9.5 MG/DL (8.5-10.1)
[2022-06-22 23:03] LABS: CREATININE FOR GFR 0.76 MG/DL (0.70-1.30); GLOMERULAR FILTRATION RATE > 60.0 (>60)
[2022-06-23] MEDS ORDERED: COMBIVENT RESPIMAT 100-20MCG INHALER 4GM INH STA (07:11)
[2022-06-23 08:13] LABS: CK-MB VALUE MASS < 1.0 NG/ML (<3.6)
[2022-06-23 08:14] LABS: CPK CREATINE PHOSPHOKINASE 58 U/L (46-171); MB/CK RELATIVE INDEX 1.72 (< OR =4)
[2022-06-23 10:32] LABS: CK-MB VALUE MASS < 1.0 NG/ML (<3.6)
[2022-06-23 10:34] LABS: CPK CREATINE PHOSPHOKINASE 53 U/L (46-171); MB/CK RELATIVE INDEX 1.88 (< OR =4)
[2022-06-23] MEDS ORDERED: IPRATROPIUM 0.5MG/ALBUTEROL 2.5MG INH SOL UD 3ML (DUONEB) NEB ONE (11:00)
[2022-06-23] MEDS ORDERED: methylPREDNISolone 125MG 2ML VIAL IV ONE (11:00)
[2022-06-23] MEDS ORDERED: ISOVUE-370 76% 100ML VIAL As Ordered ONE (11:08)
[2022-06-23] MEDS ORDERED: OMEP40CA4 PO (12:04)
[2022-06-23] MEDS ORDERED: MEDR4PAK PO (12:35)
[2022-06-23] MEDS ORDERED: ALBU6.7H6 INH (12:35)
[2022-06-23 12:50] VITALS: BP 135/83
== END 2022-06-23 12:50 | disposition home or self-care (01) ==
LOC: M ED 20:04
DX: R07.89 Other chest pain (principal); J44.9 Chronic obstructive pulmonary disease, unspecified; K21.9 Gastro-esophageal reflux disease without esophagitis; G47.33 Obstructive sleep apnea (adult) (pediatric); M54.2 Cervicalgia; M54.9 Dorsalgia, unspecified; M19.90 Unspecified osteoarthritis, unspecified site; G62.9 Polyneuropathy, unspecified; F10.10 Alcohol abuse, uncomplicated; F17.200 Nicotine dependence, unspecified, uncomplicated; Z88.0 Allergy status to penicillin
CPT/HCPCS: 71046; 71275; 80048; 82375; 82550; 82553; 82803; 85025; 87486; 87581; 87633; 87798; 93005; 94640; 94760; 96374; 99284; J2930

== ENCOUNTER 2022-08-02 23:59 | Emergency (ER) | payer MEDICAID, OTHER, SELFPAY ==
[~2022-08-02 23:59] MED LIST changes: +ALBU6.7H6 INH; +DIPH-435 PO; -DIPH25CA32 PO; +MEDR4PAK PO; +OMEP40CA4 PO
[2022-08-03 00:37] LABS: BASO # 0.1 10^3/uL (0.0-0.2); BASO % 1.3 % (0.0-1.0); EOS # 0.1 10^3/uL (0.0-0.5); EOS % 1.4 % (0.0-3.0); HEMATOCRIT 42.7 % (42.0-52.0); HEMOGLOBIN 14.4 g/dl (13.5-17.5); LYMPH # 3.3 10^3/uL (1.5-5.0); LYMPH % 34.5 % (24.0-44.0); MEAN CORPUSCULAR HEMOGLOBIN 30.8 pg (27.0-33.0); MEAN CORPUSCULAR HGB CONC 33.7 g/dl (32.0-36.5); MEAN CORPUSCULAR VOLUME 91.4 fl (80.0-96.0); MONO # 0.7 10^3/uL (0.0-0.8); MONO % 7.8 % (2.0-8.0); NEUTROPHILS # 5.2 10^3/uL (1.5-8.5); NEUTROPHILS % 54.6 % (36.0-66.0); PLATELET COUNT, AUTOMATED 415 10^3/uL (150-450); RED BLOOD COUNT 4.67 10^6/uL (4.30-6.10); WHITE BLOOD COUNT 9.5 10^3/uL (4.0-10.0)
[2022-08-03 00:58] LABS: AMPHETAMINES LEVEL URINE NEGATIVE (NEGATIVE); BENZODIAZEPINES URINE NEGATIVE (NEGATIVE)
[2022-08-03 00:59] LABS: BARBITURATES URINE NEGATIVE (NEGATIVE); CANNABINOIDS URINE NEGATIVE (NEGATIVE); COCAINE METABOLITE URINE NEGATIVE (NEGATIVE); METHADONE URINE NEGATIVE (NEGATIVE); OPIATES URINE NEGATIVE (NEGATIVE); PHENCYCLIDINE URINE NEGATIVE (NEGATIVE)
[2022-08-03 01:00] LABS: LIPASE 37 U/L (12-53)
[2022-08-03 01:01] LABS: ETHYL ALCOHOL (ETHANOL) 0.003 % (0.000-0.010)
[2022-08-03 01:02] LABS: ACETAMINOPHEN LEVEL < 2.0 UG/ML (10.0-20.0); SALICYLATE LEVEL < 3.0 MG/DL (<30)
[2022-08-03 01:03] LABS: ALBUMIN 3.6 G/DL (3.2-5.2); ALKALINE PHOSPHATASE 77 U/L (46-116); ALT/SGPT 10 U/L (7.0-40); AST/SGOT 21 U/L (<34); BILIRUBIN,DIRECT < 0.1 MG/DL (<0.4); BILIRUBIN,TOTAL 0.2 MG/DL (0.3-1.2); BLOOD UREA NITROGEN 12 MG/DL (9-23); CALCIUM LEVEL 9.7 MG/DL (8.5-10.1); CARBON DIOXIDE LEVEL 29 MMOL/L (20-31); CHLORIDE LEVEL 103 MMOL/L (98-107); CREATININE FOR GFR 0.71 MG/DL (0.70-1.30); GLOMERULAR FILTRATION RATE > 60.0 (>60); GLUCOSE, FASTING 87 MG/DL (60-100); POTASSIUM SERUM 4.5 MMOL/L (3.5-5.1); SODIUM LEVEL 138 MMOL/L (136-145)
[2022-08-03] MEDS ORDERED: OXAZEPAM 15MG CAP PO ONE ×2 (08:40→09:40)
[2022-08-03] MEDS ORDERED: THIAMINE 100 MG TAB PO SCH (09:00)
[2022-08-03] MEDS ORDERED: MULTIVITAMINS/MINERALS THERAP 1 TAB PO SCH (09:00)
[2022-08-03] MEDS ORDERED: FOLIC ACID 1MG TAB PO SCH (09:00)
[2022-08-03] MEDS ORDERED: OXAZ30CA2 PO (09:35)
[2022-08-03 10:35] VITALS: BP 126/57
== END 2022-08-03 10:43 | disposition home or self-care (01) ==
LOC: M ED 23:59
DX: F10.10 Alcohol abuse, uncomplicated (principal); J44.9 Chronic obstructive pulmonary disease, unspecified; K21.9 Gastro-esophageal reflux disease without esophagitis; F17.200 Nicotine dependence, unspecified, uncomplicated; Z79.899 Other long term (current) drug therapy; Z88.0 Allergy status to penicillin

== ENCOUNTER 2022-08-06 23:29 | Emergency (ER) | payer MEDICAID ==
[~2022-08-06] VITALS: Ht 177.8 cm; Wt 63.6 kg
[~2022-08-06 23:29] MED LIST changes: +OXAZ30CA2 PO
[2022-08-06] MEDS ORDERED: MULTIVITAMIN -ADULT INJECTION 10 ML, THIAMINE INJection 100 MG, FOLIC ACID 1 MG in NS 1... IV ONE (23:45)
[2022-08-06] MEDS ORDERED: NS 1,000 ML IV ONE (23:45)
[2022-08-06] MEDS: OXAZEPAM 15MG CAP PO ONE (23:45)
[2022-08-07] MEDS: OXAZEPAM 15MG CAP PO ONE (00:02)
[2022-08-07 00:03] LABS: BASO # 0.1 10^3/uL (0.0-0.2); BASO % 1.2 % (0.0-1.0); EOS # 0.1 10^3/uL (0.0-0.5); EOS % 1.2 % (0.0-3.0); HEMATOCRIT 42.6 % (42.0-52.0); HEMOGLOBIN 14.3 g/dl (13.5-17.5); LYMPH # 2.4 10^3/uL (1.5-5.0); LYMPH % 22.9 % (24.0-44.0); MEAN CORPUSCULAR HEMOGLOBIN 30.9 pg (27.0-33.0); MEAN CORPUSCULAR HGB CONC 33.6 g/dl (32.0-36.5); MONO # 0.7 10^3/uL (0.0-0.8); MONO % 7.1 % (2.0-8.0); PLATELET COUNT, AUTOMATED 373 10^3/uL (150-450); RED BLOOD COUNT 4.63 10^6/uL (4.30-6.10); WHITE BLOOD COUNT 10.4 10^3/uL (4.0-10.0)
[2022-08-07 00:11] LABS: APPEARANCE, URINE MANUAL CLEAR (CLEAR); COLOR, URINE MANUAL LT YELLOW (YELLOW)
[2022-08-07 00:12] LABS: BILIRUBIN, URINE MANUAL NEGATIVE (NEGATIVE); BLOOD URINE MANUAL NEGATIVE (NEGATIVE); GLUCOSE, URINE (UA) MANUAL NEGATIVE (NEGATIVE); KETONE, URINE MANUAL NEGATIVE (NEGATIVE); LEUKOCYTE ESTERASE, URINE MAN NEGATIVE (NEGATIVE); NITRITE, URINE MANUAL NEGATIVE (NEGATIVE); PH,URINE MAN 5.5 UNITS (5.0 - 7.0); PROTEIN, URINE MANUAL NEGATIVE (NEGATIVE); SPECIFIC GRAVITY,URINE MANUAL 1.015 (1.002-1.035); UROBILINOGEN, URINE MANUAL NORMAL (NORMAL)
[2022-08-07] MEDS ORDERED: LORazepam 2 MG/ML VIAL IV STA (00:18)
[2022-08-07 00:29] LABS: MAGNESIUM LEVEL 2.2 MG/DL (1.8-2.4)
[2022-08-07 00:31] LABS: ALBUMIN 3.5 G/DL (3.2-5.2); ALKALINE PHOSPHATASE 75 U/L (46-116); ALT/SGPT 11 U/L (7.0-40); AST/SGOT 14 U/L (<34); BILIRUBIN,TOTAL 0.3 MG/DL (0.3-1.2); BLOOD UREA NITROGEN 14 MG/DL (9-23); CALCIUM LEVEL 9.1 MG/DL (8.5-10.1); CARBON DIOXIDE LEVEL 23 MMOL/L (20-31); CHLORIDE LEVEL 107 MMOL/L (98-107); CREATININE FOR GFR 0.69 MG/DL (0.70-1.30); GLOMERULAR FILTRATION RATE > 60.0 (>60); GLUCOSE, FASTING 94 MG/DL (60-100); POTASSIUM SERUM 3.8 MMOL/L (3.5-5.1); SODIUM LEVEL 141 MMOL/L (136-145); TOTAL PROTEIN 6.6 G/DL (5.7-8.2)
[2022-08-07 00:33] LABS: THYROID STIMULATING HORMONE 1.936 uIU/ML (0.55-4.78)
[2022-08-07] MEDS ORDERED: ONDANSETRON 4MG 2ML VIAL IV ONE (01:00)
[2022-08-07] MEDS ORDERED: OXAZ30CA2 PO (04:10)
[2022-08-07 04:17] VITALS: BP 115/66
== END 2022-08-07 04:32 | disposition home or self-care (01) ==
LOC: M ED 23:29
DX: F10.130 Alcohol abuse with withdrawal, uncomplicated (principal); R11.2 Nausea with vomiting, unspecified; K21.9 Gastro-esophageal reflux disease without esophagitis; J44.9 Chronic obstructive pulmonary disease, unspecified; Z79.899 Other long term (current) drug therapy; Z88.0 Allergy status to penicillin
CPT/HCPCS: 71045; 80053; 81002; 82140; 83605; 83735; 84443; 85025; 93005; 96361; 96365; 96366; 96375; 99284; J2060; J2405; J3411

== ENCOUNTER 2022-12-26 23:32 | Emergency (ER) | payer MEDICAID, OTHER ==
[~2022-12-26] VITALS: Ht 170.2 cm; Wt 50.0 kg
[~2022-12-26 23:32] MED LIST changes: +LIDO15SO PO; -LIDO2SOL17 PO
[2022-12-27 00:28] LABS: ETHYL ALCOHOL (ETHANOL) 0.234 % (0.000-0.010)
[2022-12-27 00:29] LABS: ACETAMINOPHEN LEVEL < 2.0 UG/ML (10.0-20.0)
[2022-12-27 00:30] LABS: BLOOD UREA NITROGEN 6 MG/DL (9-23); CALCIUM LEVEL 8.4 MG/DL (8.5-10.1); CARBON DIOXIDE LEVEL 27 MMOL/L (20-31); CHLORIDE LEVEL 107 MMOL/L (98-107); CREATININE FOR GFR 0.59 MG/DL (0.70-1.30); GLOMERULAR FILTRATION RATE > 60.0 (>56); GLUCOSE, FASTING 87 MG/DL (60-100); POTASSIUM SERUM 3.7 MMOL/L (3.5-5.1); SALICYLATE LEVEL < 3.0 MG/DL (<30); SODIUM LEVEL 145 MMOL/L (136-145)
[2022-12-27] MEDS ORDERED: NS 1,000 ML IV ONE (00:35)
[2022-12-27 00:50] LABS: LIPASE 31 U/L (12-53)
[2022-12-27 00:52] LABS: ALBUMIN 3.6 G/DL (3.2-5.2); ALKALINE PHOSPHATASE 84 U/L (46-116); ALT/SGPT 13 U/L (7.0-40); AST/SGOT 16 U/L (<34); BILIRUBIN,DIRECT 0.1 MG/DL (<0.4); BILIRUBIN,TOTAL 0.4 MG/DL (0.3-1.2); TOTAL PROTEIN 6.4 G/DL (5.7-8.2)
[2022-12-27 00:54] LABS: HEMATOCRIT 38.5 % (42.0-52.0); HEMOGLOBIN 13.3 g/dl (13.5-17.5); MEAN CORPUSCULAR HEMOGLOBIN 30.2 pg (27.0-33.0); MEAN CORPUSCULAR HGB CONC 34.5 g/dl (32.0-36.5); MEAN CORPUSCULAR VOLUME 87.5 fl (80.0-96.0); PLATELET COUNT, AUTOMATED 305 10^3/uL (150-450); WHITE BLOOD COUNT 6.7 10^3/uL (4.0-10.0)
[2022-12-27 01:10] LABS: CPK CREATINE PHOSPHOKINASE 157 U/L (46-171)
[2022-12-27 02:00] VITALS: BP 93/51; TEMP 98
[2022-12-27 02:16] VITALS: O2SAT 98
[2022-12-27] MEDS ORDERED: OXAZ30CA2 PO (03:53)
[2022-12-27] MEDS ORDERED: ONDA4TAB6 PO (03:53)
[2022-12-27] MEDS ORDERED: ONDANSETRON 4MG ORAL DISINTEGRATING TAB PO ONE (04:00)
[2022-12-27] MEDS ORDERED: OXAZEPAM 15MG CAP PO ONE (04:05)
== END 2022-12-27 04:31 | disposition home or self-care (01) ==
LOC: EDBD 23:32 → M ED 23:32
DX: K70.10 Alcoholic hepatitis without ascites (principal); R11.2 Nausea with vomiting, unspecified; K21.9 Gastro-esophageal reflux disease without esophagitis; F10.20 Alcohol dependence, uncomplicated; Z88.0 Allergy status to penicillin; Z79.899 Other long term (current) drug therapy; Z79.51 Long term (current) use of inhaled steroids

== ENCOUNTER 2023-12-12 05:15 | Emergency (ER) | payer OTHER ==
[~2023-12-12] VITALS: Ht 170.2 cm; Wt 59.1 kg
[~2023-12-12 05:15] MED LIST changes: -GABA-283 PO; +GABA-284 PO; -HM S0.65 NARES; -LIDO15SO PO; +LIDO15SO8 PO; +ONDA4TAB6 PO; -SALI0.6530 NARES; +SALI0.6531 NARES; +SODI88SP NARES
[2023-12-12] MEDS: NS 1,000 ML IV ONE (06:40)
[2023-12-12 06:58] LABS: VENOUS BASE EXCESS 0.1 (-2.0-2.0); VENOUS HCO3 24.3 MMOL/L (23.0-27.0); VENOUS O2 SATURATION 94.2 % (60.0-80.0); VENOUS PARTIAL PRESSURE CO2 38.3 mmHg (38.0-50.0); VENOUS PARTIAL PRESSURE O2 70.8 mmHg (30.0-50.0); VENOUS PH 7.421 UNITS (7.330-7.430); VENOUS STANDARD HCO3 24.5 MMOL/L; VENOUS TOTAL CO2 25.5 MMOL/L (24.0-28.0)
[2023-12-12 07:11] LABS: BASO # 0.1 10^3/uL (0.0-0.2); BASO % 1.4 % (0.0-1.0); EOS # 0.1 10^3/uL (0.0-0.5); EOS % 0.8 % (0.0-3.0); HEMATOCRIT 40.9 % (42.0-52.0); HEMOGLOBIN 14.3 g/dl (13.5-17.5); LYMPH # 1.5 10^3/uL (1.5-5.0); LYMPH % 15.8 % (24.0-44.0); MEAN CORPUSCULAR HEMOGLOBIN 31.4 pg (27.0-33.0); MEAN CORPUSCULAR VOLUME 89.9 fl (80.0-96.0); MONO % 10.1 % (2.0-8.0); NEUTROPHILS % 71.7 % (36.0-66.0); PLATELET COUNT, AUTOMATED 319 10^3/uL (150-450); RED BLOOD COUNT 4.55 10^6/uL (4.30-6.10); WHITE BLOOD COUNT 9.7 10^3/uL (4.0-10.0)
[2023-12-12 07:25] LABS: INR 0.97; PARTIAL THROMBOPLASTIN TIME 27.2 SECONDS (24.8-34.2); PROTHROMBIN TIME 12.6 SECONDS (12.5-14.5)
[2023-12-12 07:30] VITALS: TEMP 98.8
[2023-12-12 07:34] LABS: ETHYL ALCOHOL (ETHANOL) 0.147 % (0.000-0.010); LIPASE 29 U/L (12-53)
[2023-12-12 07:35] LABS: AMYLASE 99 U/L (30-118)
[2023-12-12 07:36] LABS: ALBUMIN 3.5 G/DL (3.2-5.2); ALKALINE PHOSPHATASE 74 U/L (46-116); ALT/SGPT 20 U/L (7.0-40); AST/SGOT 28 U/L (<34); BILIRUBIN,DIRECT < 0.1 MG/DL (<0.4); BILIRUBIN,TOTAL 0.3 MG/DL (0.3-1.2); BLOOD UREA NITROGEN 7 MG/DL (9-23); CALCIUM LEVEL 8.8 MG/DL (8.5-10.1); CARBON DIOXIDE LEVEL 25 MMOL/L (20-31); CHLORIDE LEVEL 106 MMOL/L (98-107); CK-MB VALUE MASS < 1.0 NG/ML (<3.6); CPK CREATINE PHOSPHOKINASE 195 U/L (46-171); CREATININE FOR GFR 0.69 MG/DL (0.70-1.30); GLOMERULAR FILTRATION RATE > 60.0 (>56); GLUCOSE, FASTING 88 MG/DL (60-100); MB/CK RELATIVE INDEX 0.51 (< OR =4); POTASSIUM SERUM 3.9 MMOL/L (3.5-5.1); SODIUM LEVEL 139 MMOL/L (136-145); TOTAL PROTEIN 6.6 G/DL (5.7-8.2)
[2023-12-12] MEDS ORDERED: HOME MED LIST COMPLETE! XX SCH (08:00)
[2023-12-12] MEDS: KETOROLAC 30 MG/ML 1ML VIAL IV ONE (08:30)
[2023-12-12 09:00] VITALS: BP 121/74; O2SAT 97
== END 2023-12-12 09:49 | disposition home or self-care (01) ==
LOC: EDBD 05:15 → M ED 05:15
DX: S40.012A Contusion of left shoulder, initial encounter (principal); S40.011A Contusion of right shoulder, initial encounter; S13.4XXA Sprain of ligaments of cervical spine, initial encounter; Y92.9 Unspecified place or not applicable; Y93.9 Activity, unspecified; Y99.9 Unspecified external cause status; V49.40XA Driver injured in collision with unspecified motor vehicles in traffic accident, initial encounter; F10.10 Alcohol abuse, uncomplicated; Z88.0 Allergy status to penicillin
CPT/HCPCS: 70450; 71045; 72125; 73030; 80048; 80076; 82077; 82140; 82150; 82550; 82553; 82803; 83605; 83690; 84484; 85025; 85610; 85730; 86850; 86900; 86901; 93041; 94760; 96374; 99285; J1885

== ENCOUNTER 2023-12-23 23:25 | Emergency (ER) | payer MEDICAID, OTHER, SELFPAY ==
[~2023-12-23] VITALS: Ht 170.2 cm; Wt 63.6 kg
[2023-12-23 23:33] VITALS: BP 117/78; TEMP 97.4; O2SAT 98
[2023-12-24] MEDS: ACETAMINOPHEN TAB 650MG DOSE (2X325MG) PO ONE (04:40)
[2023-12-24] MEDS: IBUPROFEN 600MG TAB PO ONE (04:56)
== END 2023-12-24 05:07 | disposition home or self-care (01) ==
LOC: M ED 23:25
DX: S06.0X0A Concussion without loss of consciousness, initial encounter (principal); S40.012A Contusion of left shoulder, initial encounter; Y04.8XXA Assault by other bodily force, initial encounter; M50.322 Other cervical disc degeneration at C5-C6 level; M25.78 Osteophyte, vertebrae; J43.9 Emphysema, unspecified; F17.200 Nicotine dependence, unspecified, uncomplicated; F10.10 Alcohol abuse, uncomplicated; Y92.009 Unspecified place in unspecified non-institutional (private) residence as the place of occurrence of the external cause; Y93.89 Activity, other specified; Y99.9 Unspecified external cause status; Z88.0 Allergy status to penicillin

== ENCOUNTER 2024-01-23 12:56 | Emergency (ER) | payer MEDICAID ==
[~2024-01-23] VITALS: Ht 170.2 cm; Wt 63.6 kg
[~2024-01-23 12:56] MED LIST changes: +ONDA-282 PO; -ONDA4TAB6 PO
[2024-01-23] MEDS: ONDANSETRON 4MG 2ML VIAL IV ONE (13:40)
[2024-01-23] MEDS: LORazepam 2 MG/ML 1ML VIAL IV STA (13:40)
[2024-01-23 13:48] LABS: HEMATOCRIT 41.5 % (42.0-52.0); HEMOGLOBIN 14.5 g/dl (13.5-17.5); MEAN CORPUSCULAR HEMOGLOBIN 31.9 pg (27.0-33.0); MEAN CORPUSCULAR HGB CONC 34.9 g/dl (32.0-36.5); MEAN CORPUSCULAR VOLUME 91.2 fl (80.0-96.0); PLATELET COUNT, AUTOMATED 255 10^3/uL (150-450); RED BLOOD COUNT 4.55 10^6/uL (4.30-6.10); WHITE BLOOD COUNT 5.7 10^3/uL (4.0-10.0)
[2024-01-23 14:12] LABS: C REACTIVE PROTEIN QUANTITATIV < 0.40 MG/DL (<1.0); ETHYL ALCOHOL (ETHANOL) < 0.003 % (0.000-0.010)
[2024-01-23 14:14] LABS: ALBUMIN 3.9 G/DL (3.2-5.2); ALKALINE PHOSPHATASE 79 U/L (46-116); ALT/SGPT 76 U/L (7.0-40); AST/SGOT 66 U/L (<34); BILIRUBIN,DIRECT 0.2 MG/DL (<0.4); BILIRUBIN,TOTAL 0.8 MG/DL (0.3-1.2); BLOOD UREA NITROGEN 10 MG/DL (9-23); CALCIUM LEVEL 9.3 MG/DL (8.5-10.1); CARBON DIOXIDE LEVEL 30 MMOL/L (20-31); CHLORIDE LEVEL 104 MMOL/L (98-107); CK-MB VALUE MASS < 1.0 NG/ML (<3.6); CPK CREATINE PHOSPHOKINASE 85 U/L (46-171); CREATININE FOR GFR 0.85 MG/DL (0.70-1.30); GLOMERULAR FILTRATION RATE > 60.0 (>56); GLUCOSE, FASTING 102 MG/DL (60-100); MB/CK RELATIVE INDEX 1.17 (< OR =4); POTASSIUM SERUM 4.2 MMOL/L (3.5-5.1); SALICYLATE LEVEL < 3.0 MG/DL (<30); SODIUM LEVEL 139 MMOL/L (136-145); TOTAL PROTEIN 6.7 G/DL (5.7-8.2)
[2024-01-23 14:15] LABS: FREE T4 1.22 NG/DL (0.89-1.76)
[2024-01-23 14:16] LABS: THYROID STIMULATING HORMONE 0.512 uIU/ML (0.55-4.78)
[2024-01-23] MEDS: MULTIVITAMIN -ADULT INJECTION 10 ML, THIAMINE INJection 100 MG, FOLIC ACID 1 MG in NS 1... IV ONE (14:56)
[2024-01-23 16:47] LABS: AMPHETAMINES LEVEL URINE NEGATIVE (NEGATIVE); BARBITURATES URINE NEGATIVE (NEGATIVE); BENZODIAZEPINES URINE NEGATIVE (NEGATIVE); CANNABINOIDS URINE NEGATIVE (NEGATIVE); COCAINE METABOLITE URINE NEGATIVE (NEGATIVE); METHADONE URINE NEGATIVE (NEGATIVE); OPIATES URINE NEGATIVE (NEGATIVE); PHENCYCLIDINE URINE NEGATIVE (NEGATIVE)
[2024-01-23] MEDS ORDERED: MULT-90 PO (16:47)
[2024-01-23] MEDS ORDERED: FOLI0.4T5 PO (16:47)
[2024-01-23] MEDS ORDERED: THIA100T7 PO (16:47)
[2024-01-23 17:00] VITALS: O2SAT 96
[2024-01-23 17:49] VITALS: BP 142/89; TEMP 97.9
== END 2024-01-23 17:48 | disposition home or self-care (01) ==
LOC: EDBD 12:56 → M ED 12:56
DX: F10.120 Alcohol abuse with intoxication, uncomplicated (principal); F17.210 Nicotine dependence, cigarettes, uncomplicated; Z88.0 Allergy status to penicillin
CPT/HCPCS: 80048; 80076; 80143; 80307; 82077; 82550; 82553; 84439; 84443; 84484; 85027; 86140; 93005; 96365; 96366; 96374; 99285; J2060; J2405; J3411

== ENCOUNTER 2024-01-25 13:45 | Emergency (ER) | payer MEDICAID ==
[~2024-01-25] VITALS: Ht 170.2 cm; Wt 59.4 kg
[~2024-01-25 13:45] MED LIST changes: +FOLI0.4T5 PO; +MULT-90 PO; +THIA100T7 PO
[2024-01-25 14:30] LABS: BASO # 0.2 10^3/uL (0.0-0.2); BASO % 2.5 % (0.0-1.0); EOS # 0.1 10^3/uL (0.0-0.5); EOS % 1.7 % (0.0-3.0); HEMATOCRIT 40.3 % (42.0-52.0); HEMOGLOBIN 14.1 g/dl (13.5-17.5); LYMPH # 2.3 10^3/uL (1.5-5.0); LYMPH % 35.5 % (24.0-44.0); MEAN CORPUSCULAR VOLUME 91.4 fl (80.0-96.0); MONO # 0.8 10^3/uL (0.0-0.8); MONO % 11.7 % (2.0-8.0); NEUTROPHILS # 3.1 10^3/uL (1.5-8.5); NEUTROPHILS % 48.3 % (36.0-66.0); PLATELET COUNT, AUTOMATED 250 10^3/uL (150-450); RED BLOOD COUNT 4.41 10^6/uL (4.30-6.10); WHITE BLOOD COUNT 6.4 10^3/uL (4.0-10.0)
[2024-01-25 14:53] LABS: AMPHETAMINES LEVEL URINE NEGATIVE (NEGATIVE); BARBITURATES URINE NEGATIVE (NEGATIVE); BENZODIAZEPINES URINE NEGATIVE (NEGATIVE); CANNABINOIDS URINE NEGATIVE (NEGATIVE); COCAINE METABOLITE URINE NEGATIVE (NEGATIVE); METHADONE URINE NEGATIVE (NEGATIVE); OPIATES URINE NEGATIVE (NEGATIVE); PHENCYCLIDINE URINE NEGATIVE (NEGATIVE)
[2024-01-25 14:57] LABS: CPK CREATINE PHOSPHOKINASE 122 U/L (46-171); SALICYLATE LEVEL < 3.0 MG/DL (<30)
[2024-01-25 15:19] LABS: ALBUMIN 3.4 G/DL (3.2-5.2); ALKALINE PHOSPHATASE 73 U/L (46-116); ALT/SGPT 66 U/L (7.0-40); AST/SGOT 56 U/L (<34); BILIRUBIN,DIRECT 0.1 MG/DL (<0.4); BILIRUBIN,TOTAL 0.3 MG/DL (0.3-1.2); BLOOD UREA NITROGEN 8 MG/DL (9-23); CALCIUM LEVEL 8.5 MG/DL (8.5-10.1); CARBON DIOXIDE LEVEL 28 MMOL/L (20-31); CHLORIDE LEVEL 108 MMOL/L (98-107); CREATININE FOR GFR 0.74 MG/DL (0.70-1.30); ETHYL ALCOHOL (ETHANOL) 0.341 % (0.000-0.010); GLOMERULAR FILTRATION RATE > 60.0 (>56); GLUCOSE, FASTING 79 MG/DL (60-100); SODIUM LEVEL 141 MMOL/L (136-145); THYROID STIMULATING HORMONE 0.538 uIU/ML (0.55-4.78)
[2024-01-25 18:14] VITALS: BP 130/82; TEMP 97; O2SAT 94
== END 2024-01-25 18:17 | disposition left against medical advice (07) ==
LOC: EDBD 13:45 → M ED 13:45
DX: F10.120 Alcohol abuse with intoxication, uncomplicated (principal); J44.9 Chronic obstructive pulmonary disease, unspecified; K21.9 Gastro-esophageal reflux disease without esophagitis; F41.9 Anxiety disorder, unspecified; F32.9 Major depressive disorder, single episode, unspecified; Z88.0 Allergy status to penicillin; Z53.9 Procedure and treatment not carried out, unspecified reason

== ENCOUNTER 2024-01-25 22:43 | Emergency (ER) | payer MEDICAID ==
[~2024-01-25] VITALS: Ht 170.2 cm; Wt 63.6 kg
[2024-01-25] MEDS ORDERED: LORazepam 2 MG TAB PO PRN (22:50)
[2024-01-25] MEDS: ONDANSETRON 4MG 2ML VIAL IV ONE (22:59)
[2024-01-25] MEDS: NS 1,000 ML IV SCH (23:00)
[2024-01-25 23:22] LABS: BASO # 0.1 10^3/uL (0.0-0.2); BASO % 2.3 % (0.0-1.0); EOS # 0.2 10^3/uL (0.0-0.5); EOS % 2.8 % (0.0-3.0); HEMATOCRIT 39.3 % (42.0-52.0); HEMOGLOBIN 13.7 g/dl (13.5-17.5); LYMPH % 49.7 % (24.0-44.0); MEAN CORPUSCULAR HEMOGLOBIN 31.4 pg (27.0-33.0); MEAN CORPUSCULAR HGB CONC 34.9 g/dl (32.0-36.5); MEAN CORPUSCULAR VOLUME 90.1 fl (80.0-96.0); MONO # 0.6 10^3/uL (0.0-0.8); MONO % 9.7 % (2.0-8.0); NEUTROPHILS # 2.1 10^3/uL (1.5-8.5); NEUTROPHILS % 35.3 % (36.0-66.0); PLATELET COUNT, AUTOMATED 255 10^3/uL (150-450); RED BLOOD COUNT 4.36 10^6/uL (4.30-6.10)
[2024-01-25 23:39] LABS: ETHYL ALCOHOL (ETHANOL) 0.189 % (0.000-0.010)
[2024-01-25 23:41] LABS: SALICYLATE LEVEL < 3.0 MG/DL (<30)
[2024-01-25 23:45] LABS: ALBUMIN 3.3 G/DL (3.2-5.2); ALKALINE PHOSPHATASE 77 U/L (46-116); ALT/SGPT 68 U/L (7.0-40); AST/SGOT 61 U/L (<34); BILIRUBIN,DIRECT 0.1 MG/DL (<0.4); BILIRUBIN,TOTAL 0.4 MG/DL (0.3-1.2); BLOOD UREA NITROGEN 9 MG/DL (9-23); CALCIUM LEVEL 8.4 MG/DL (8.5-10.1); CARBON DIOXIDE LEVEL 28 MMOL/L (20-31); CHLORIDE LEVEL 107 MMOL/L (98-107); CPK CREATINE PHOSPHOKINASE 145 U/L (46-171); CREATININE FOR GFR 0.82 MG/DL (0.70-1.30); GLOMERULAR FILTRATION RATE > 60.0 (>56); GLUCOSE, FASTING 108 MG/DL (60-100); POTASSIUM SERUM 3.8 MMOL/L (3.5-5.1); SODIUM LEVEL 141 MMOL/L (136-145); THYROID STIMULATING HORMONE 0.889 uIU/ML (0.55-4.78); TOTAL PROTEIN 4.2 G/DL (5.7-8.2)
[2024-01-26 01:00] VITALS: BP 120/71; TEMP 98.4; O2SAT 96
[2024-01-26] MEDS ORDERED: MULTIVITAMINS/MINERALS THERAP 1 TAB PO SCH (09:00)
[2024-01-26] MEDS ORDERED: THIAMINE 100 MG TAB PO SCH (09:00)
[2024-01-26] MEDS ORDERED: FOLIC ACID 1MG TAB PO SCH (09:00)
== END 2024-01-26 01:12 | disposition short-term general hospital (02) ==
LOC: EDBD 22:43 → M ED 22:43
DX: F10.120 Alcohol abuse with intoxication, uncomplicated (principal); J44.9 Chronic obstructive pulmonary disease, unspecified; K21.9 Gastro-esophageal reflux disease without esophagitis; F41.9 Anxiety disorder, unspecified; Z88.0 Allergy status to penicillin
CPT/HCPCS: 80048; 80076; 80143; 82077; 82550; 84443; 85025; 93005; 93041; 94760; 96361; 96374; 99285; J2405

== ENCOUNTER 2025-02-22 09:45 | Emergency (ER) | payer MEDICAID ==
[~2025-02-22] VITALS: Ht 170.2 cm; Wt 51.4 kg
[~2025-02-22 09:45] MED LIST changes: +ACET-1515 PO; -ACET650T15 PO; -CYCL5TAB PO; +CYCL5TAB4 PO; +LIDO1ADH93 TOP; -LIDO5DIS41 TOP
[2025-02-22] MEDS ORDERED: ELIQ5TAB PO (10:16)
[2025-02-22 10:35] LABS: BASO # 0.2 10^3/uL (0.0-0.2); BASO % 1.7 % (0.0-1.0); EOS # 0.6 10^3/uL (0.0-0.5); EOS % 6.1 % (0.0-3.0); LYMPH # 2.0 10^3/uL (1.5-5.0); LYMPH % 19.8 % (24.0-44.0); MONO # 0.7 10^3/uL (0.0-0.8); MONO % 6.4 % (2.0-8.0); NEUTROPHILS # 6.6 10^3/uL (1.5-8.5); NEUTROPHILS % 65.6 % (36.0-66.0); PLATELET COUNT, AUTOMATED 256 10^3/uL (150-450)
[2025-02-22 10:42] LABS: INR 1.08
[2025-02-22 10:53] LABS: ETHYL ALCOHOL (ETHANOL) < 0.003 % (0.000-0.010)
[2025-02-22 11:09] LABS: ALT/SGPT 404 U/L (7.0-40); AST/SGOT 382 U/L (<34); CALCIUM LEVEL 8.2 MG/DL (8.5-10.1); CARBON DIOXIDE LEVEL 24 MMOL/L (20-31); CHLORIDE LEVEL 101 MMOL/L (98-107); CREATININE FOR GFR 0.41 MG/DL (0.70-1.30); GLOMERULAR FILTRATION RATE > 90.0 (>56); POTASSIUM SERUM 4.0 MMOL/L (3.5-5.1); SODIUM LEVEL 136 MMOL/L (136-145)
[2025-02-22] MEDS ORDERED: HOME MED LIST COMPLETE! XX SCH (11:20)
[2025-02-22 12:50] VITALS: BP 115/58; TEMP 98.1; O2SAT 100
== END 2025-02-22 12:52 | disposition short-term general hospital (02) ==
LOC: M ED 09:45 → EDBD 09:45 → M ED 12:52
DX: K83.1 Obstruction of bile duct (principal); Z96.89 Presence of other specified functional implants; I50.22 Chronic systolic (congestive) heart failure; F17.210 Nicotine dependence, cigarettes, uncomplicated; F10.10 Alcohol abuse, uncomplicated; Z79.01 Long term (current) use of anticoagulants